=== PATIENT | male | born 1980 | race Caucasian/White ===

== ENCOUNTER 2021-06-10 19:46 | Emergency (ER) | payer OTHER, BC, SELFPAY ==
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
[2021-06-10 19:49] VITALS: BP 169/108; PULSE 97; RESP 16; TEMP 36.6; O2SAT 97; BMI 31.0
[2021-06-10] MEDS: Acetaminophen 325 MG TABLET 650 MG PO (20:21)
[2021-06-10] MEDS: Ondansetron ODT 4 MG TAB.RAPDIS TRANSLINGU (20:21)
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
[2021-06-10 21:51] VITALS: BP 150/91; PULSE 77; RESP 16; O2SAT 97
[2021-06-10] MEDS: Cyclobenzaprine HCl 10 MG TABLET PO (21:56)
== END 2021-06-10 22:35 | disposition home or self-care (01) ==
PROVIDERS: Emergency Provider Internal Medicine; PCP Nurse Practitioner Family
DX: S13.4XXA Sprain of ligaments of cervical spine, initial encounter (principal); V43.52XA Car driver injured in collision with other type car in traffic accident, initial encounter; Y93.89 Activity, other specified; Y92.414 Local residential or business street as the place of occurrence of the external cause; Y99.9 Unspecified external cause status
CPT/HCPCS: 70450; 72072; 72125; 99284

== ENCOUNTER → 2021-06-11 08:05 | Outpatient (BNVA) | payer BC, SELFPAY | PROVIDERS: PCP Nurse Practitioner Family; Visit Provider Physician Assistant ==

== ENCOUNTER → 2021-06-30 07:57 | Outpatient (BNVA) | payer BC, SELFPAY | PROVIDERS: Visit Provider Orthopaedic Surgery ==

== ENCOUNTER 2021-09-27 11:00 | Outpatient (RCR) | payer OTHER, BC, SELFPAY ==
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
--- NOTE | 2021-09-27 12:26 | MHC.PT.DC ---
[facility] [place] [facility] [place] [facility] [place] [facility] [address] Carlos Saini [address] [phone] F: [phone] F: [phone] F: [phone] F: [phone] Physical Therapy Discharge Report Diagnosis: pain in thoracic spine Date of Surgery: Date of Evaluation: 08/02/21 Date of Discharge: 09/27/21 Treatments to Date: 13 Cancellations to Date: 3 No Shows to Date: 0 Discharge Status: Achieved Goals Improved Function Independent with HEP Discharge Summary: Pt has made great progress since beginning skilled PT. He is no longer having pain at rest and has met all of his goals at this time. He does have some mild discomfort with rotation at end range but overall this is much better. He is independent with his HEP and understands retirement compliance to maintain all benefits achieved here. At this time he has maximized all benefits of skilled PT and skilled PT is no longer indicated at this time. Pt in agreement with d/c today. Electronically signed by: Nicole Espinosa, PT, DPT, ATC Please sign and return to therapist. Thank you for your referral.
== END 2021-09-27 12:26 | disposition home or self-care (01) ==
LOC: HO.PTCHIC 11:00
PROVIDERS: PCP Nurse Practitioner Family; Visit Provider Nurse Practitioner Family
DX: M54.6 Pain in thoracic spine (principal); V89.2XXD Person injured in unspecified motor-vehicle accident, traffic, subsequent encounter
CPT/HCPCS: 97110; 97140; 97161

== ENCOUNTER 2022-07-06 12:02 | Outpatient (REF) | payer BC, SELFPAY ==
--- NOTE | 2022-07-06 09:15 | EMG_ITS ---
Please see scanned EMG / Nerve Conduction Report. MTDD
== END 2022-07-06 12:03 | disposition home or self-care (01) ==
LOC: HO.NEURO 12:02
PROVIDERS: PCP Nurse Practitioner Family; Visit Provider Orthopaedic Surgery
DX: R20.0 Anesthesia of skin (principal)
CPT/HCPCS: 95885; 95913

== ENCOUNTER → 2022-07-19 10:22 | Outpatient (BNVA) | payer BC, SELFPAY | PROVIDERS: PCP Nurse Practitioner Family; Visit Provider Orthopaedic Surgery | DX: Z13.89 Encounter for screening for other disorder (principal) ==

== ENCOUNTER 2023-01-17 06:04 | Outpatient (REF) | payer BC, SELFPAY ==
[2023-01-17 11:20] LABS: MANUAL DIFF FLAG NO
[2023-01-17 11:26] LABS: Basophils Percent Auto 0.8 % (0-2); Eosinophils Absolute Auto 0.2 X10*3/uL (0.0-0.4); Eosinophils Percent Auto 4.5 % (0-4); Hematocrit 44.4 % (42.0-52.0); Imm Gran Abs Auto 0.02 X10*3/uL (0.00-0.03); Imm Gran Pct Auto 0.4 % (0.0-0.4); Lymphocytes Absolute Auto 2.2 X10*3/uL (1.2-4.9); Lymphocytes Percent Auto 46.3 % (20-40); Mean Corpuscular HGB Conc 33.8 g/dl (31.0-36.0); Mean Corpuscular Hemoglobin 29.6 pg (27.0-33.0); Mean Corpuscular Volume 87.6 fL (80.0-98.0); Mean Platelet Volume 9.7 fL (9.4-12.4); Monocytes Absolute Auto 0.4 X10*3/uL (0.1-1.2); Monocytes Percent Auto 9.1 % (2-11); Neutrophils Absolute Auto 1.9 x10*3/uL (2.0-8.3); Neutrophils Percent Auto 38.9 % (45-73); Platelet Count 183 X10*3/uL (160-400); Red Blood Count 5.07 X10*6/uL (4.60-5.80); Red Cell Distribution Width 12.4 % (11.0-16.0); White Blood Count 4.8 X10*3/uL (4.8-10.8)
[2023-01-17 12:08] LABS: Appearance Urine Turbid; Color Urine Dark Yellow; Glucose Urine UA Negative (Negative); Leukocyte Esterase Urine Negative (Negative); Nitrite Urine Negative (Negative); PH 5.5 (5.0-9.0); Specific Gravity - Urine >= 1.030 (1.005-1.025); Urine Blood Negative (Negative); Urine Ketones Negative (Negative); Urine Protein Trace mg/dL (Neg-Trace)
[2023-01-17 15:17] LABS: Alanine Aminotransferase 53 U/L (0-40); Albumin Level 4.2 g/dL (3.5-5.0); Alkaline Phosphatase 68 U/L (39-117); Anion Gap 11 (12-20); Aspartate Amino Transferase 26 U/L (5-37); Bilirubin Total 0.5 mg/dL (0.0-1.0); Blood Urea Nitrogen 22 mg/dL (9-16); Calcium 9.6 mg/dL (8.4-10.2); Carbon Dioxide 28 mmol/L (22-29); Chloride 107 mmol/L (96-108); Estimated Glomerular Filt Rate > 60; Glucose Fasting 91 mg/dL (60-99); Potassium 3.8 mmol/L (3.3-5.1); Sodium 142 mmol/L (135-145); Total Protein 6.4 g/dL (6.5-8.0)
[2023-01-17 15:19] LABS: TSH reflex Free T4 4.56 uIU/mL (0.32-4.0)
[2023-01-17 16:56] LABS: Free T4 (Free Thyroxine) 0.95 ng/dL (0.71-1.85)
== END 2023-01-17 06:05 | disposition home or self-care (01) ==
LOC: HO.HMGCLDS 06:04
PROVIDERS: PCP Nurse Practitioner Family; Visit Provider Nurse Practitioner Family
DX: Z00.00 Encounter for general adult medical examination without abnormal findings (principal); R94.6 Abnormal results of thyroid function studies
CPT/HCPCS: 36415; 80053; 81003; 84439; 84443; 85025

== ENCOUNTER 2023-01-19 07:25 | Outpatient (AMB) | payer BC, SELFPAY ==
[2023-01-19 07:39] VITALS: BP 120/82; PULSE 81; O2SAT 96; BMI 31.2
--- NOTE | 2023-01-19 07:39 | A.OFFPC_ITS ---
Vital Signs 01/19/23 07:39 Height 5 ft 9 in Weight 211 lb BMI 31.2 BP 120/82 Blood Pressure Location Rt brachial Position Sitting Pulse 81 Pulse Source Pulse Oximeter Pulse Oximetry (%) 96 Oxygen Delivery Method Room Air Intake Visit Reasons: Annual PE Allergies No Known Allergies [No Known Allergies*] Allergy (Verified 01/19/23 07:41) pollen/seasonal Allergy (Mild, Uncoded 01/19/23 07:41) Unknown Medication List - Last Reconciled 01/19/23 by LETY Villa-SYLVIA cetirizine (Zyrtec) 10 mg PO DAILY PRN levothyroxine 25 mcg PO DAILY 30 days multivitamin 1 tab PO DAILY omeprazole 40 mg PO DAILY zolpidem ER 6.25 mg PO BEDTIME PRN 30 days Tobacco use date assessed: 01/19/23 Dental Screening Dental Screen Date: 01/19/23 Did you have a dental visit in the last 12 months?: Yes Did you have a dental problem in the last 6 months where you did not have access to dental care?: No Was dental information given to patient?: Patient has dentist HPI Annual PE HPI Details Here for a PE. most labs already performed. ongoing fatigue reported. elevated TSH (subclinical), will treat with low dose levo, and will also refer for a sleep study. Will further order more labs as well, and continue to monitor thyroid function. liver enzymes up, Hx of fatty liver. Will repeat abd US. pt does follow up with his oncologist, which i highly suggest he continues to do (Hx of seminoma of left testicle, retroperitoneal mass). 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 Theo Reyes, Leticia Banerjee, Trenton Rodas and colleagues, with an educational vannessa from [employer]. Review of Systems Const Denies chills and Denies fever(s) Eyes Denies blurry vision ENT Denies vertigo, Denies dizziness and Denies sore throat Card Denies chest pain at rest, Denies chest pain with activity, Denies diaphoresis, Denies dyspnea and Denies dyspnea on exertion Resp Denies cough, Denies dyspnea, Denies dyspnea on exertion and Denies wheezing GI Denies abdominal pain, Denies melena, Denies hematochezia, Denies constipation, Denies diarrhea and Denies loose stools Denies hematuria Musc Denies numbness and Denies tingling Skin/Breast Denies lesions Neuro Denies vertigo, Denies dizziness, Denies numbness and Denies tingling Psych Denies anxiety, Denies depression, Denies homicidal ideation, Denies suicidal ideation and Denies other (substance abuse) Aller/Immun Denies wheezing Physical exam (Primary Care) Vital Signs: Last Vital Signs Pulse 81 01/19/23 07:39 BP 120/82 01/19/23 07:39 Pulse Ox 96 01/19/23 07:39 Oxygen Delivery Method Room Air 01/19/23 07:39 BMI result Body Mass Index 31.2 Tobacco/Smoking Status: Tobacco use Status Tobacco use date assessed 01/19/23 01/19/23 07:43 Patient Tobacco Use Status Never used Tobacco 01/19/23 07:43 e-Cigarette/Vaping Use Never Used 01/19/23 07:43 Thrive Assessment: Date of Thrive Assessment Date Thrive assessed 01/18/22 01/19/23 07:43 Const General: cooperative Nutritional Appearance: well nourished Orientation/consciousness: patient oriented x3 HENMT Head: Yes normal to inspection, Yes normocephalic and Yes atraumatic Ears: TM normal on the right and TM normal on the left Eyes General: appearance normal, both eyes and all related structures Alignment and Position: alignment normal and position normal Neck Neck: Yes normal visual inspection and Yes no lymphadenopathy Resp Effort & Inspection: normal respiratory effort Auscultation: clear to auscultation bilaterally Cardio Rate: regular rate Rhythm: regular rhythm Heart sounds: S1 normal heart sound present, S2 normal heart sound present and no murmurs GI Palpation (GI): Soft to palpation and nontender Auscultation: normal bowel sounds Other: absent left testicle Male General Exam: Yes normal external exam Penis: normal penis Scrotum: scrotum normal and no inguinal hernias Testes: no testicular mass Skin Rashes: no rashes Neuro General: patient oriented x3, moves all extremities, no focal motor deficits and deep tendon reflexes 2+ bilaterally Romberg Test: Negative Extrem Right lower extremity: no edema Left lower extremity: no edema Psych Affect: normal affect Attitude: cooperative Thought process: Normal thought process present Assessment and Plan Assessment & Plan (1) Fatigue: Code(s): R53.83 - Other fatigue (2) Elevated TSH: Code(s): R79.89 - Other specified abnormal findings of blood chemistry (3) Elevated liver enzymes: Code(s): R74.8 - Abnormal levels of other serum enzymes (4) Physical exam: Code(s): Z00.00 - Encounter for general adult medical examination without abnormal findings Orders: Orders 2 TSH reflex Free T4 2 Months R53.83 - Other fatigue Ferritin Today R53.83 - Other fatigue Vitamin B12 and Folate Today R53.83 - Other fatigue IRON PROFILE Today R53.83 - Other fatigue US abdomen complete Today R74.8 - Abnormal levels of other serum enzymes Smooth Muscle Antibody Today R53.83 - Other fatigue Mitochondrial Antibody Today R53.83 - Other fatigue Alpha Fetoprotein Today R53.83 - Other fatigue TAMICA Reflex Titer and Pattern Today R53.83 - Other fatigue Testosterone, Free/Total Today C62.92 - Malignant neoplasm of left testis, unspecified whether descended or undescended, R53.83 - Other fatigue Referrals Sleep Medicine Referral R53.83 - Other fatigue Medications: New levothyroxine 25 mcg PO DAILY 30 caps 3RF 30 days Coding Level of Care Code Est Pt Prev Care 40-64y(29864) Diagnoses Fatigue R53.83 Elevated TSH R79.89 Elevated liver enzymes R74.8 Physical exam Z00.00
== END 2023-01-19 11:45 | disposition home or self-care (01) ==
PROVIDERS: Visit Provider Nurse Practitioner Family
DX: R53.83 Other fatigue (principal); R79.89 Other specified abnormal findings of blood chemistry; R74.8 Abnormal levels of other serum enzymes; Z00.00 Encounter for general adult medical examination without abnormal findings
CPT/HCPCS: 99396

== ENCOUNTER 2023-02-02 08:18 | Outpatient (REF) | payer BC, SELFPAY ==
--- NOTE | ~2023-02-02 | US_ITS ---
EXAMINATION: US ABDOMEN COMPLETE CLINICAL INFORMATION: In size. Spleen is borderline prominent in size.. COMPARISON: CT abdomen and pelvis 10/25/2018. Ultrasound abdomen complete 06/22/2018. TECHNIQUE: Real-time imaging of the abdominal viscera. Technically limited study secondary to bowel gas. FINDINGS: PANCREAS: The visualized head and body of the pancreas appears unremarkable. Remainder of the pancreas is obscured by bowel gas. ABDOMINAL AORTA: The distal aorta is obscured. Remainder of the visualized aorta appears unremarkable. INFERIOR VENA CAVA: Visualized portions are normal. LIVER: The liver is normal in size. The liver contour is normal. Diffuse increased parenchymal echogenicity. No focal hepatic lesion. There is no intrahepatic biliary duct dilatation seen. GALLBLADDER: Normal. The gallbladder is physiologically distended without evidence of stones, sludge, polyps, wall thickening or pericholecystic fluid. COMMON BILE DUCT: Normal in caliber measuring 0.38 cm in diameter. RIGHT KIDNEY: Normal. No hydronephrosis. No renal calculi or focal parenchymal lesions. The kidney measures 10.5 cm in maximum dimension. LEFT KIDNEY: Normal. No hydronephrosis. No renal calculi or focal parenchymal lesions. The kidney measures 11.3 cm in maximum dimension. SPLEEN: Upper limits of normal The spleen measures 13.1 cm in maximum dimension. FREE FLUID: None. US/US abdomen complete IMPRESSION: 1. There is generalized increase in hepatic echotexture, consistent with fatty infiltration or hepatocellular disease. Please correlate clinically. No focal hepatic mass or intrahepatic biliary duct dilatation is seen. 2. Spleen is borderline prominent in size.
== END 2023-02-02 08:19 | disposition home or self-care (01) ==
LOC: HO.HMGCX 08:18
PROVIDERS: PCP Nurse Practitioner Family; Visit Provider Nurse Practitioner Family
DX: R74.8 Abnormal levels of other serum enzymes (principal)
CPT/HCPCS: 76700

== ENCOUNTER 2023-02-09 12:29 | Outpatient (AMB) | payer BC, SELFPAY ==
--- NOTE | 2023-02-09 12:39 | MHC.OFFVIS ---
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 Pt is on thyroid medication, pt states he wakes up very tired , has some issues c sleep since Cancer treatments. Allergies No Known Allergies [No Known Allergies*] Allergy (Verified 02/09/23 12:44) pollen/seasonal Allergy (Mild, Uncoded 01/19/23 07:41) Unknown HPI HPI Comments History of Present Illness Details 42 y/o male patient presents for new in-person visit for sleep consultation. Pt reports excessive daytime sleepiness. He reports that he was very tired all day, but has improved a little after he start levothyroxine. However, he still feel very tired around 3 pm and takes a nap for an hour sometimes. He started taking levothyroxine 25 mg a week ago. He has family hx of sleep apnea. Pt states that he does not have difficulty falling asleep, but tosses and turns, moves a lot, and having not rested sleep. He wakes up around 3 am and can't go back to sleep. He also recently started mouth guard for jaw clenching. Sleep questionnaire: Have you ever been diagnosed with a sleep disorder? No. Have you ever had a sleep study in the past? No. Have you ever been treated for a sleep disorder? No. Do you take medications for a sleep disorder? zolpidem ,had cancer 5 years ago, could not sleep, only use once every couple of months. Do you snore? Yes. Do you wake up gasping at night? No. Do you have episodes of apneas? No. If yes, are they witnessed? No. Do you have episodes of nocturnal chest pain or dyspnea? No. Do you have difficulty initiating sleep? Not really. Do you have difficulty maintaining sleep? Yes. Do you wake up tired? Yes. Do you have headaches upon awakening? No. Do you wake up with dry mouth or throat? No. Do you have GERD? Yes. Do you have nocturia? Once. Do you have nocturnal leg cramps? No. Do you have symptoms of restless legs? Yes, sometimes. Do you act out your dreams? No but having vivid dream. Sleep hygiene questionnaire: What is your usual sleep routine? Usual bedtime is at ; Usual wake up time is at 3 am . Do you take naps? Yes. Is your sleep environment cool, dark, and quiet? Yes. Do you exercise? Yes. Do you take caffeine or other stimulants? Coffee in the morning and afternoon with candy bar. Do you use electronics in bed? Yes. 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 Hypersomnolence questionnaire: Do you have daytime tiredness or fatigue? Yes. Do you easily fall asleep when inactive? Yes. Have you ever had episodes of sudden weakness? No. Have you ever had episodes of sudden weakness associated with strong emotions? No. 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 occupation: [employer] / rt hand Current occupational exposures/hazards: Yes Cognitive needs: No Hearing needs: No Vision needs: No Review of Systems Const All systems reviewed & are unremarkable except as noted in HPI and below ENT Reports Normal hearing present Neuro Reports Normal hearing present Physical Exam Vital Signs: Last Vital Signs Pulse 87 02/09/23 12:40 BP 128/86 02/09/23 12:40 Pulse Ox 99 02/09/23 12:40 Oxygen Delivery Method Room Air 02/09/23 12:40 BMI result Body Mass Index 32.1 Const General: cooperative and tired appearing Orientation/consciousness: patient oriented x3 Neck Neck: Yes full ROM and Yes supple Resp Effort & Inspection: normal respiratory effort and able to speak in complete sentences Neuro General: patient oriented x3 and gait normal Cranial nerves: Yes Bilaterally intact EOM present, Yes Normal facial strength present, Yes Midline tongue present, Yes Symmetric palate elevation present, Yes Normal hearing present, Yes Ability to bilaterally rotate head present and Yes Ability to bilaterally elevate shoulders present Cognition (Neuro): normal cognition Gait exam (Neuro): Normal gait present Motor exam (neuro): 5/5 motor strength present throughout, Pronator motor function not present and no tremor noted Psych Appearance: grossly normal Mental Status: mental status grossly normal Speech and movement: Normal speech and movement present Affect: normal affect Attitude: cooperative Assessment & Plan Assessment & Plan (1) Fatigue: Code(s): R53.83 - Other fatigue (2) Excessive daytime sleepiness: Code(s): G47.19 - Other hypersomnia (3) Snoring: Code(s): R06.83 - Snoring Plan Pt is advised to undergo home sleep study to assess for sleep apnea. Will f/u with pt after study to discuss results and appropriate treatment options. Sleep hygiene education provided. Advised patient to limit screen time before bedtime, and limit caffeine intake in the afternoon. Pt to call with any worsening concerns or questions. Coding Level of Care Code New Pt Level 4 (24112) Diagnoses Fatigue R53.83 Excessive daytime sleepiness G47.19 Snoring R06.83
[2023-02-09 12:40] VITALS: BP 128/86; PULSE 87; O2SAT 99; BMI 32.1
== END 2023-02-09 13:36 | disposition home or self-care (01) ==
PROVIDERS: PCP Nurse Practitioner Family; Visit Provider Nurse Practitioner Family
DX: R53.83 Other fatigue (principal); G47.19 Other hypersomnia; R06.83 Snoring
CPT/HCPCS: 99204

== ENCOUNTER → 2023-02-09 12:29 | Outpatient (BNVA) | payer BC, SELFPAY | PROVIDERS: PCP Nurse Practitioner Family; Visit Provider Nurse Practitioner Family ==

== ENCOUNTER 2023-04-03 07:13 | Outpatient (REF) | payer BC, SELFPAY ==
[2023-04-03 12:23] LABS: Folate 11.8 ng/mL (> or = 4.0); Vitamin B12 1063 pg/mL (200-900)
[2023-04-03 12:37] LABS: Ferritin 320 ng/mL (20-250); TSH reflex Free T4 1.75 uIU/mL (0.32-4.0)
[2023-04-03 12:49] LABS: Iron 107 mcg/dL (45-160); Percent Iron Saturation 43 % (15-50); Total Iron Binding Capacity 249 mcg/dL (228-428); Unsaturated Iron Binding 142 ug/dL
[2023-04-04 21:23] LABS: Thyroid Peroxidase Antibodies 3 IU/mL (<9)
[2023-04-07 12:34] LABS: Alpha Fetoprotein 4.4 ng/mL (<6.1)
[2023-04-08 13:04] LABS: Smooth Muscle Antibody <20 U (<20)
[2023-04-10 01:08] LABS: Testosterone, Free 62.4 pg/mL (35.0-155.0); Testosterone, Total 280 ng/dL (250-1100)
[2023-04-10 11:54] LABS: Mitochondrial Antibodies NEGATIVE (NEGATIVE)
[2023-04-10 13:18] LABS: Anti Nuclear Antibody Screen POSITIVE (NEGATIVE); Anti Nuclear Antibody Titer 1:40 titer
== END 2023-04-03 07:14 | disposition home or self-care (01) ==
LOC: HO.HMGCLDS 07:13
PROVIDERS: PCP Nurse Practitioner Family; Visit Provider Nurse Practitioner Family
DX: R53.83 Other fatigue (principal); R94.6 Abnormal results of thyroid function studies; C62.92 Malignant neoplasm of left testis, unspecified whether descended or undescended
CPT/HCPCS: 36415; 82105; 82607; 82728; 82746; 83540; 84402; 84403; 84443; 86015; 86038; 86039; 86376; 86381

== ENCOUNTER 2023-04-20 09:49 | Outpatient (AMB) | payer BC, SELFPAY ==
--- NOTE | 2023-04-20 09:57 | MHC.PC.OV ---
Vital Signs 04/20/23 10:00 Weight 220 lb BP 120/94 H Blood Pressure Location Rt brachial Position Sitting Pulse 80 Pulse Source Pulse Oximeter Pulse Oximetry (%) 97 Oxygen Delivery Method Room Air Intake Visit Reasons: 3 Month follow up Allergies No Known Allergies [No Known Allergies*] Allergy (Verified 04/20/23 10:00) pollen/seasonal Allergy (Mild, Uncoded 04/20/23 10:00) Unknown Medication List - Last Reconciled 04/20/23 by KAMRAN Villa cetirizine (Zyrtec) 10 mg PO DAILY PRN cholecalciferol (vitamin D3) 25 mcg PO DAILY esomeprazole magnesium 20 mg PO DAILY levothyroxine 25 mcg PO DAILY 30 days multivitamin 1 tab PO DAILY omeprazole 40 mg PO DAILY zolpidem ER 6.25 mg PO BEDTIME PRN 30 days Tobacco use date assessed: 01/19/23 HPI 3 Month follow up HPI Details Pt reports ongoing fatigue. His TSH was elevated previously, though it is normal now. He is currently taking levothyroxine 25mcg, will continue this dose. Sleep study was ordered but pt would not like to do it at home, will contact sleep medicine about this. Denies fever, chills, and dizziness. + TAMICA: referred to rhuematology for further eval and treatment. Pt is currently following up with oncology as well (once a year appts). HTN: denies any CP, SOB, dizziness, BECK. Will have him take his BP at home, drop off values in a few weeks. 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 Theo Reyes, Leticia Banerjee, Trenton Rodas and colleagues, with an educational vannessa from [employer]. Review of Systems Const Reports as per HPI Physical exam (Primary Care) Vital Signs: Last Vital Signs Pulse 80 04/20/23 10:00 BP 120/94 H 04/20/23 10:00 Pulse Ox 97 04/20/23 10:00 Oxygen Delivery Method Room Air 04/20/23 10:00 Tobacco/Smoking Status: Tobacco use Status Tobacco use date assessed 01/19/23 04/20/23 09:58 Patient Tobacco Use Status Never used Tobacco 04/20/23 09:58 e-Cigarette/Vaping Use Never Used 04/20/23 09:58 Thrive Assessment: Date of Thrive Assessment Date Thrive assessed 01/18/22 04/20/23 09:58 Const General: cooperative Nutritional Appearance: obese Orientation/consciousness: patient oriented x3 Resp Effort & Inspection: normal respiratory effort Auscultation: clear to auscultation bilaterally Cardio Rate: regular rate Rhythm: regular rhythm Heart sounds: S1 normal heart sound present and S2 normal heart sound present Neuro General: patient oriented x3 Psych Appearance: grossly normal Mental Status: mental status grossly normal Speech and movement: Normal speech and movement present Affect: normal affect Attitude: cooperative Thought process: Normal thought process present Thought content: Normal thought content present Insight: Good insight present (Psych) Judgement: Good judgement present (Psych) Assessment and Plan Assessment & Plan (1) Fatigue: Code(s): R53.83 - Other fatigue (2) Elevated TSH: Code(s): R79.89 - Other specified abnormal findings of blood chemistry (3) TAMICA positive: Code(s): R76.8 - Other specified abnormal immunological findings in serum (4) HTN (hypertension): Code(s): I10 - Essential (primary) hypertension Plan: pt will take BP at home, drop off values Plan The patient agreed to the use of a dental assistant medical assistant for this encounter. Scribed for KAMRAN Green by Aria Dotson dental assistant medical assistant, on 04/20/2023 at 10:30 EST. Orders: Orders Complete Blood Count Auto Diff Today R53.83 - Other fatigue, R76.8 - Other specified abnormal immunological findings in serum, R79.89 - Other specified abnormal findings of blood chemistry TSH reflex Free T4 Today R53.83 - Other fatigue, R76.8 - Other specified abnormal immunological findings in serum, R79.89 - Other specified abnormal findings of blood chemistry Comprehensive Met. Panel Today R53.83 - Other fatigue, R76.8 - Other specified abnormal immunological findings in serum, R79.89 - Other specified abnormal findings of blood chemistry Coding Level of Care Code Est Pt Level 3 (77081) Diagnoses Fatigue R53.83 Elevated TSH R79.89 TAMICA positive R76.8 HTN (hypertension) I10
[2023-04-20 10:00] VITALS: BP 120/94; PULSE 80; O2SAT 97
== END 2023-04-20 10:46 | disposition home or self-care (01) ==
PROVIDERS: PCP Nurse Practitioner Family; Visit Provider Nurse Practitioner Family
DX: R53.83 Other fatigue (principal); R79.89 Other specified abnormal findings of blood chemistry; R76.8 Other specified abnormal immunological findings in serum; I10 Essential (primary) hypertension
CPT/HCPCS: 99213

== ENCOUNTER → 2023-05-12 19:30 | Outpatient (REF) | payer BC, SELFPAY | LOC: HO.SL 19:30 | PROVIDERS: PCP Nurse Practitioner Family; Visit Provider Nurse Practitioner Family | DX: G47.33 Obstructive sleep apnea (adult) (pediatric) (principal); R06.83 Snoring; G47.19 Other hypersomnia; E66.9 Obesity, unspecified | CPT/HCPCS: 95810 ==

== ENCOUNTER → 2023-05-12 23:02 | Outpatient (BNV) | payer BC, SELFPAY | PROVIDERS: PCP Nurse Practitioner Family; Visit Provider Psychiatry & Neurology Neurology | DX: R06.83 Snoring (principal) | CPT/HCPCS: 95810 ==

== ENCOUNTER 2023-06-08 08:24 | Outpatient (AMB) | payer BC, SELFPAY ==
[2023-06-08 08:36] VITALS: BP 132/70; PULSE 100; TEMP 36.3; O2SAT 97; BMI 33.8
--- NOTE | 2023-06-08 08:36 | MHC.OFFVIS ---
Intake Vital Signs 06/08/23 08:36 Height 5 ft 9 in Weight 229 lb 0.964 oz BMI 33.8 BP 132/70 Blood Pressure Location Rt brachial Position Sitting Pulse 100 Pulse Source Pulse Oximeter Temp 97.3 F Temp Source Skin Pulse Oximetry (%) 97 Oxygen Delivery Method Room Air Intake Visit Reasons: abnormal immunological findings in serum Intake Note: New patient presents today for + TAMICA consult. Human Resource Advisor Required: No Allergies No Known Allergies [No Known Allergies*] Allergy (Verified 06/08/23 08:38) pollen/seasonal Allergy (Mild, Uncoded 06/08/23 08:38) Unknown HPI HPI Comments History of Present Illness Details This is a 43-year-old male who presents for evaluation of positive TAMICA. This was checked in the context of generalized fatigue and sleepiness. Recently he was found to have elevated TSH and was started on levothyroxine. He just completed a sleep study which showed sleep apnea and CPAP was prescribed. Patient denies any fevers, denies weight loss. He denies any significant joint pain, morning stiffness or swelling. No rashes except for dry skin on his digital tips. States that he was diagnosed with left testicular seminoma about 5 years ago s/p left orchiectomy and chemotherapy followed by active surveillance. Patient is unaware of any family history of an autoimmune rheumatic disease. Denies any history of DVT/PE PFSH Medical History Retroperitoneal mass Seminoma of left testis H/O splenomegaly Fatty liver Surgical History H/O unilateral orchiectomy Family History Mother No problems noted. 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 Current occupational exposures/hazards: Yes Cognitive needs: No Hearing needs: No Vision needs: No Review of Systems Const Reports fatigue Card Denies dyspnea Resp Denies dyspnea Musc Denies arthralgias, Denies joint swelling and Denies stiffness Skin/Breast Reports dry skin and Denies rash Endo Reports fatigue Physical Exam Vital Signs: Last Vital Signs Temp 97.3 F 06/08/23 08:36 Pulse 100 06/08/23 08:36 BP 132/70 06/08/23 08:36 Pulse Ox 97 06/08/23 08:36 Oxygen Delivery Method Room Air 06/08/23 08:36 BMI result Body Mass Index 33.8 Const General: cooperative, healthy appearing and comfortable Nutritional Appearance: obese Orientation/consciousness: patient oriented x3 Limitations: no limitations HEENT Head: Yes normocephalic and Yes atraumatic Mouth: moist mucous membranes Resp Effort & Inspection: normal respiratory effort and able to speak in complete sentences Auscultation: clear to auscultation bilaterally Cardio Rate: regular rate Rhythm: regular rhythm Skin General skin exam: no rashes or lesions noted Neuro General: patient oriented x3 Extrem Other: No active synovitis Normal nailfold capillaroscopy Assessment & Plan Assessment & Plan (1) TAMICA positive: Code(s): R76.8 - Other specified abnormal immunological findings in serum Plan: This is a 43-year-old male who presents for evaluation of positive TAMICA 1-40 dfs pattern. I do not see any signs of any signs suggestive of an autoimmune rheumatic disease. Discussed symptoms and signs that are suggestive of an autoimmune rheumatic disease. Patient to follow-up as needed Plan I spent 20 minutes reviewing patient's chart, evaluating patient, counseling patient and documenting in the chart Coding Level of Care Code New Pt Level 3 (91513) Diagnoses TAMICA positive R76.8
== END 2023-06-08 09:12 | disposition home or self-care (01) ==
PROVIDERS: PCP Nurse Practitioner Family; Visit Provider Student in an Organized Health Care Education/Training Program
DX: R76.8 Other specified abnormal immunological findings in serum (principal)
CPT/HCPCS: 99203

== ENCOUNTER → 2023-06-08 08:24 | Outpatient (BNVA) | payer BC, SELFPAY | PROVIDERS: PCP Nurse Practitioner Family; Visit Provider Student in an Organized Health Care Education/Training Program ==

== ENCOUNTER 2023-07-27 08:17 | Outpatient (AMB) | payer BC, SELFPAY ==
--- NOTE | 2023-07-27 08:21 | A.OFFPC_ITS ---
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 He reports that this started 2 days ago. Pt reports that this is worse with movement and deep breathing. Will order XR (chest and ribs). Pt has a hx of retroperitoneal carcinoma. Will order US. Denies fever, chills, and shortness of breath. Pt was found to have sleep apnea. He started using a CPAP and reports improvement. HTN: Blood pressure is stable, managed with hydrochlorothiazide 12.5mg. Denies chest pain, shortness of breath, headache, dizziness, and blurred vision. [facility] Medical History Retroperitoneal mass Seminoma of left testis H/O splenomegaly Fatty liver Surgical History H/O unilateral orchiectomy Family History Mother No problems noted. 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 1. Little interest or pleasure in doing things: not at all 2. Feeling down, depressed, or hopeless: not at all 3. Trouble falling or staying asleep, or sleeping too much: not at all 4. Feeling tired or having little energy: not at all 5. Poor appetite or overeating: not at all 6. Feeling bad about yourself - or that you are a failure or have let yourself or your family down: not at all 7. Trouble concentrating on things, such as reading the newspaper or watching television: not at all 8. Moving or speaking so slowly that other people could have noticed. Or the opposite - being so fidgety or restless that you have been moving around a lot more than usual: not at all 9. Thoughts that you would be better off or of hurting yourself in some way: not at all Total score: 0 Depression Screening Interpretation: Negative Depression Screening Done: Yes 53072 - PHQ-9 Billing: Yes Source: Developed by Drs. Theo Reyes, Leticia Banerjee, Trenton Rodas and colleagues, with an educational vannessa from [employer]. Thrive Questionnaire Date Thrive assessed: 07/27/23 I am a: Patient What is your living situation today?: I have a steady place to live Within the past 12 months, did the food you bought not last and you didn't have the money to get more?: Never true Within the past 12 months, did you worry whether your food would run out before you got money to buy more?: Never true Do you have trouble paying for medicines?: No Do you have trouble getting transportation to medical appointments?: No Do you have trouble paying your heating and electricity bill?: No Do you have trouble taking care of your child, family member or friend?: No Do you have trouble with day-to-day activities such as bathing, preparing meals, shopping, managing finances, etc.?: No Are you currently unemployed and looking for a job?: No Are you interested in more education?: No Please select the resources that you would like help with: None Currently or been in a relationship where the following occur: no concerns reported THRIVE Score: 0 AUDIT C Alcohol Use Questionnaire (AUDIT-C) 1. How often do you have a drink containing alcohol?: Monthly or less 2. How many drinks containing alcohol do you have on a typical day when you are drinking?: 1 or 2 3. How often do you have six or more drinks on one occasion?: Never Total Score: 1 Score Reviewed/Action Taken: Yes SHIRA-7 AMB Questionnaire SHIRA-7 Date SHIRA - 7 assessed: 07/27/23 Feeling nervous, anxious, or on edge: 0 = Not at all Not being able to stop or control worryin = Not at all Worrying too much about different things: 0 = Not at all Trouble relaxin = Not at all Being so restless that it is hard to sit still: 0 = Not at all Becoming easily annoyed or irritable: 0 = Not at all Feeling afraid as if something awful might happen: 0 = Not at all Total SHIRA-7 score (0-4 normal; 5-9 mild; 10-14 moderate; 15-21 severe): 0 Source: Developed by Drs. Theo Reyes, Leticia Banerjee, Trenton Rodas and colleagues, with an educational vannessa from [employer]. SHIRA-7 Assessment Billing SHIRA-7 Assessment Tool: SHIRA-7 Assessment 53372 Review of Systems Const Reports as per HPI Physical exam (Primary Care) Vital Signs: Last Vital Signs Pulse 81 07/27/23 08:23 BP 134/76 07/27/23 08:23 Pulse Ox 98 07/27/23 08:23 Oxygen Delivery Method Room Air 07/27/23 08:23 BMI result Body Mass Index 32.9 Tobacco/Smoking Status: Tobacco use Status Tobacco use date assessed 07/27/23 07/27/23 08:27 Patient Tobacco Use Status Never used Tobacco 07/27/23 08:23 e-Cigarette/Vaping Use Never Used 07/27/23 08:23 PHQ-9: PHQ-9 Score PHQ-9: Total score 0 07/27/23 08:30 Depression Screening Interpretation: Negative Thrive Assessment: Date of Thrive Assessment Date Thrive assessed 07/27/23 07/27/23 08:27 Currently or been in a relationship where the following occur: no concerns reported Const General: cooperative Nutritional Appearance: obese Orientation/consciousness: patient oriented x3 Chest Other: tenderness noted with palpation of right posterior lower ribs, no skin lesions Resp Effort & Inspection: normal respiratory effort Auscultation: clear to auscultation bilaterally Cardio Rate: regular rate Rhythm: regular rhythm Heart sounds: S1 normal heart sound present and S2 normal heart sound present Skin Other: palpation of lateral side (more posterior) and to upper right flank with tenderness. No active skin lesions/dermatitis Neuro General: patient oriented x3 Psych Appearance: grossly normal Mental Status: mental status grossly normal Speech and movement: Normal speech and movement present Affect: normal affect Attitude: cooperative Thought process: Normal thought process present Thought content: Normal thought content present Insight: Good insight present (Psych) Judgement: Good judgement present (Psych) Assessment and Plan Assessment & Plan (1) Rib pain: Code(s): R07.81 - Pleurodynia Plan: XR ordered (2) Inspiratory pain: Code(s): R07.1 - Chest pain on breathing Plan: XR ordered (3) Radiating pain: Code(s): R52 - Pain, unspecified Plan: XR and US ordered Plan The patient agreed to the use of a medical administrator for this encounter. Scribed for KAMRAN Green by Aria Dotson medical administrator, on 07/27/2023 at 08:30 EST. Orders: Orders XR chest 2V Today R07.1 - Chest pain on breathing, R07.81 - Pleurodynia Comprehensive [place]. Panel Fast Today I10 - Essential (primary) hypertension Lipid Panel Today I10 - Essential (primary) hypertension TSH reflex Free T4 Today I10 - Essential (primary) hypertension UA CC w/rflx Micro + Cult Today I10 - Essential (primary) hypertension XR ribs RT 2V Today R07.81 - Pleurodynia US retroperitoneal limited Today R52 - Pain, unspecified Complete Blood Count Auto Diff Today I10 - Essential (primary) hypertension Coding Level of Care Code Est Pt Level 3 (27484) Diagnoses Rib pain R07.81 Inspiratory pain R07.1 Radiating pain R52 Additional Codes SHIRA-7 Assessment Billing - SHIRA-7 Assessment Tool: SHIRA-7 Assessment [id number] ([id number])
[2023-07-27 08:23] VITALS: BP 134/76; PULSE 81; O2SAT 98; BMI 32.9
== END 2023-07-27 08:56 | disposition home or self-care (01) ==
PROVIDERS: PCP Nurse Practitioner Family; Visit Provider Nurse Practitioner Family
DX: R07.81 Pleurodynia (principal); R07.1 Chest pain on breathing; Z85.89 Personal history of malignant neoplasm of other organs and systems; I10 Essential (primary) hypertension
CPT/HCPCS: 99213

== ENCOUNTER 2023-07-27 09:00 | Outpatient (REF) | payer BC, SELFPAY ==
--- NOTE | ~2023-07-27 | XR_ITS ---
EXAMINATION: XR RIBS, RIGHT XR CHEST CLINICAL INFORMATION: Chest pain with inspiration. COMPARISON: 10/16/2018 TECHNIQUE: 4 views of the right ribs were obtained. PA and lateral views of the chest. FINDINGS: The lungs are well expanded. No focal consolidation. No pleural effusion. Cardiac silhouette is unchanged. No acute displaced fracture. There is evidence of an old healed right anterior 2nd rib fracture. XR/XR ribs RT 2V IMPRESSION: No acute abnormality.
--- NOTE | ~2023-07-27 | XR_ITS ---
EXAMINATION: XR RIBS, RIGHT XR CHEST CLINICAL INFORMATION: Chest pain with inspiration. COMPARISON: 10/16/2018 TECHNIQUE: 4 views of the right ribs were obtained. PA and lateral views of the chest. FINDINGS: The lungs are well expanded. No focal consolidation. No pleural effusion. Cardiac silhouette is unchanged. No acute displaced fracture. There is evidence of an old healed right anterior 2nd rib fracture. XR/XR chest 2V IMPRESSION: No acute abnormality.
== END 2023-07-27 09:01 | disposition home or self-care (01) ==
LOC: HO.HMGCX 09:00
PROVIDERS: PCP Nurse Practitioner Family; Visit Provider Nurse Practitioner Family
DX: R07.1 Chest pain on breathing (principal); R07.81 Pleurodynia
CPT/HCPCS: 71046; 71100

== ENCOUNTER 2023-07-31 13:47 | Outpatient (REF) | payer BC, SELFPAY ==
--- NOTE | ~2023-07-31 | US_ITS ---
EXAMINATION: US RETROPERITONEAL LIMITED (RENAL ONLY) CLINICAL INFORMATION: Pain, unspecified. Right upper flank pain. COMPARISON: Ultrasound abdomen complete 02/02/2023. CT abdomen and pelvis 10/25/2018. Ultrasound abdomen complete 06/22/2018. TECHNIQUE: Real-time imaging of the kidneys. FINDINGS: RIGHT KIDNEY: 10.5 x 4.5 x 5.2 cm (SAG x AP x TRV). The kidney is normal in size, contour, and echogenicity. Renal cortical thickness is normal. No calculi or focal parenchymal lesions. No hydronephrosis. LEFT KIDNEY: 11.2 x 5.7 x 6.1 cm (SAG x AP x TRV). The kidney is normal in size, contour, and echogenicity. Renal cortical thickness is normal. No calculi or focal parenchymal lesions. No hydronephrosis. US/US renal BI IMPRESSION: Unremarkable renal ultrasound.
== END 2023-07-31 13:48 | disposition home or self-care (01) ==
LOC: HO.HMGCX 13:47
PROVIDERS: PCP Nurse Practitioner Family; Visit Provider Nurse Practitioner Family
DX: R10.10 Upper abdominal pain, unspecified (principal)
CPT/HCPCS: 76775

== ENCOUNTER 2023-08-04 08:02 | Outpatient (AMB) | payer BC, SELFPAY ==
--- NOTE | 2023-08-04 08:06 | MHC.OFFVIS ---
Intake Vital Signs 08/04/23 08:07 Height 5 ft 9 in Weight 225 lb BMI 33.2 BP 126/70 Blood Pressure Location Rt brachial Position Sitting Respiration 16 Pulse 76 Pulse Source Pulse Oximeter Pulse Oximetry (%) 97 Oxygen Delivery Method Room Air Intake Visit Reasons: f/u-Fatigue - CONF w/address Intake Note: Pt presents for 6 month follow up for excessive daytime sleepiness. 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 The PSG sleep study result was significant for mild degree of sleep apnea with increased severity in REM sleep. The AHI was 11/hr, REM AHI was 15/hr and oxygen dax was 86%. Pt started APAP at [id number]. The CPAP compliance and therapy response (05/06/23-) reviewed. The usage days 49 days and the average usage hours 7 hrs. The max pressures was 7.6 and the residual AHI was 2.8/hr. Pt reports he sleeps better, not waking up in the middle of night to go to bathroom. He feels refreshed, and daytime sleepiness has resolved. He does not take a nap during daytime anymore, and does not need to drink coffee to stay awake. [facility] Medical History Retroperitoneal mass Seminoma of left testis H/O splenomegaly Fatty liver Surgical History H/O unilateral orchiectomy Family History Mother No problems noted. 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 Current occupational exposures/hazards: Yes Cognitive needs: No Hearing needs: No Vision needs: No Review of Systems Const All systems reviewed & are unremarkable except as noted in HPI and below ENT Reports Normal hearing present Neuro Reports Normal hearing present Physical Exam Vital Signs: Last Vital Signs Pulse 76 08/04/23 08:07 Resp 16 08/04/23 08:07 BP 126/70 08/04/23 08:07 Pulse Ox 97 08/04/23 08:07 Oxygen Delivery Method Room Air 08/04/23 08:07 BMI result Body Mass Index 33.2 Const General: cooperative Orientation/consciousness: patient oriented x3 Neck Neck: Yes full ROM and Yes supple Resp Effort & Inspection: normal respiratory effort and able to speak in complete sentences Neuro General: patient oriented x3 and gait normal Cranial nerves: Yes Bilaterally intact EOM present, Yes Normal facial strength present, Yes Midline tongue present, Yes Symmetric palate elevation present, Yes Normal hearing present, Yes Ability to bilaterally rotate head present and Yes Ability to bilaterally elevate shoulders present Cognition (Neuro): normal cognition Gait exam (Neuro): Normal gait present Motor exam (neuro): 5/5 motor strength present throughout, Pronator motor function not present and no tremor noted Psych Appearance: grossly normal Mental Status: mental status grossly normal Speech and movement: Normal speech and movement present Affect: normal affect Attitude: cooperative Assessment & Plan Assessment & Plan (1) JAVY (obstructive sleep apnea): Comment: Mild degree of sleep apnea. The AHI was 11/hr, REM AHI was 15/hr and oxygen dax was 86%. Code(s): G47.33 - Obstructive sleep apnea (adult) (pediatric) Plan Advised patient to continue to use APAP at [id number] as patient experiences good clinical effects, sleep quality and daytime symptoms has improved. Stressed compliance, use CPAP nightly and more than 4 hrs. Wt reduction advised. Coding Level of Care Code Est Pt Level 3 (99948) Diagnoses JAVY (obstructive sleep apnea) G47.33
[2023-08-04 08:07] VITALS: BP 126/70; PULSE 76; RESP 16; O2SAT 97; BMI 33.2
== END 2023-08-04 08:21 | disposition home or self-care (01) ==
PROVIDERS: PCP Nurse Practitioner Family; Visit Provider Nurse Practitioner Family
DX: G47.33 Obstructive sleep apnea (adult) (pediatric) (principal)
CPT/HCPCS: 99213

== ENCOUNTER → 2023-08-04 08:02 | Outpatient (BNVA) | payer BC, SELFPAY | PROVIDERS: PCP Nurse Practitioner Family; Visit Provider Nurse Practitioner Family ==

== ENCOUNTER 2023-08-10 07:22 | Outpatient (REF) | payer BC, SELFPAY ==
[2023-08-10 10:08] LABS: MANUAL DIFF FLAG NO
[2023-08-10 10:29] LABS: Basophils Absolute Auto 0.1 X10*3/uL (0.0-0.2); Basophils Percent Auto 1.1 % (0-2); Eosinophils Absolute Auto 0.3 X10*3/uL (0.0-0.4); Eosinophils Percent Auto 4.4 % (0-4); Hematocrit 44.1 % (42.0-52.0); Hemoglobin 15.2 g/dl (14.0-18.0); Imm Gran Abs Auto 0.02 X10*3/uL (0.00-0.03); Imm Gran Pct Auto 0.4 % (0.0-0.4); Lymphocytes Absolute Auto 1.7 X10*3/uL (1.2-4.9); Lymphocytes Percent Auto 30.1 % (20-40); Mean Corpuscular HGB Conc 34.5 g/dl (31.0-36.0); Mean Corpuscular Hemoglobin 30.1 pg (27.0-33.0); Mean Corpuscular Volume 87.3 fL (80.0-98.0); Mean Platelet Volume 9.8 fL (9.4-12.4); Monocytes Absolute Auto 0.5 X10*3/uL (0.1-1.2); Monocytes Percent Auto 9.5 % (2-11); Neutrophils Absolute Auto 3.1 x10*3/uL (2.0-8.3); Neutrophils Percent Auto 54.5 % (45-73); Platelet Count 173 X10*3/uL (160-400); Red Blood Count 5.05 X10*6/uL (4.60-5.80); Red Cell Distribution Width 12.1 % (11.0-16.0); White Blood Count 5.7 X10*3/uL (4.8-10.8)
[2023-08-10 11:10] LABS: Alanine Aminotransferase 45 U/L (0-40); Albumin Level 4.1 g/dL (3.5-5.0); Alkaline Phosphatase 70 U/L (39-117); Anion Gap 11 (12-20); Aspartate Amino Transferase 24 U/L (5-37); Bilirubin Total 0.5 mg/dL (0.0-1.0); Blood Urea Nitrogen 23 mg/dL (9-16); Calcium 9.4 mg/dL (8.4-10.2); Carbon Dioxide 29 mmol/L (22-29); Chloride 105 mmol/L (96-108); Cholesterol 179 mg/dL (<200); Estimated Glomerular Filt Rate > 60; Glucose Fasting 104 mg/dL (60-99); Glucose Random 105 mg/dL (60-115); HDL Cholesterol 43 mg/dL (>40); LDL Cholesterol Calculated 119 mg/dL (<100); Potassium 4.5 mmol/L (3.3-5.1); Sodium 140 mmol/L (135-145); Total Protein 6.5 g/dL (6.5-8.0); Triglycerides 86 mg/dL (<150)
[2023-08-10 11:29] LABS: TSH reflex Free T4 1.75 uIU/mL (0.32-4.0)
== END 2023-08-10 07:23 | disposition home or self-care (01) ==
LOC: HO.HMGCLDS 07:22
PROVIDERS: PCP Nurse Practitioner Family; Visit Provider Nurse Practitioner Family
DX: R53.83 Other fatigue (principal); R79.89 Other specified abnormal findings of blood chemistry; R76.8 Other specified abnormal immunological findings in serum; I10 Essential (primary) hypertension
CPT/HCPCS: 36415; 80053; 80061; 84443; 85025

== ENCOUNTER 2023-12-05 06:29 | Outpatient (REF) | payer BC, SELFPAY ==
[2023-12-05 10:11] LABS: MANUAL DIFF FLAG NO
[2023-12-05 10:20] LABS: Basophils Absolute Auto 0.1 X10*3/uL (0.0-0.2); Basophils Percent Auto 1.2 % (0-2); Eosinophils Absolute Auto 0.3 X10*3/uL (0.0-0.4); Eosinophils Percent Auto 5.5 % (0-4); Hematocrit 43.5 % (42.0-52.0); Hemoglobin 14.7 g/dl (14.0-18.0); Imm Gran Abs Auto 0.01 X10*3/uL (0.00-0.03); Imm Gran Pct Auto 0.2 % (0.0-0.4); Lymphocytes Absolute Auto 1.8 X10*3/uL (1.2-4.9); Mean Corpuscular HGB Conc 33.8 g/dl (31.0-36.0); Mean Corpuscular Hemoglobin 29.6 pg (27.0-33.0); Mean Corpuscular Volume 87.5 fL (80.0-98.0); Mean Platelet Volume 9.9 fL (9.4-12.4); Monocytes Absolute Auto 0.5 X10*3/uL (0.1-1.2); Monocytes Percent Auto 8.9 % (2-11); Neutrophils Absolute Auto 2.5 x10*3/uL (2.0-8.3); Neutrophils Percent Auto 48.2 % (45-73); Platelet Count 201 X10*3/uL (160-400); Red Blood Count 4.97 X10*6/uL (4.60-5.80); Red Cell Distribution Width 12.6 % (11.0-16.0); White Blood Count 5.1 X10*3/uL (4.8-10.8)
[2023-12-05 10:48] LABS: TSH reflex Free T4 1.85 uIU/mL (0.32-4.0)
== END 2023-12-05 06:30 | disposition home or self-care (01) ==
LOC: HO.HMGCLDS 06:29
PROVIDERS: PCP Nurse Practitioner Family; Visit Provider Nurse Practitioner Family
DX: I10 Essential (primary) hypertension (principal)
CPT/HCPCS: 36415; 84443; 85025

== ENCOUNTER 2023-12-12 07:50 | Outpatient (AMB) | payer BC, SELFPAY ==
--- NOTE | 2023-12-12 08:04 | MHC.PC.OV ---
Vital Signs 12/12/23 08:09 Height 5 ft 9 in Weight 213 lb BMI 31.5 BP 130/90 H Blood Pressure Location Lt brachial Position Sitting Pulse 82 Pulse Source Pulse Oximeter Pulse Oximetry (%) 97 Oxygen Delivery Method Room Air Intake Visit Reasons: 4 month follow up Intake Note: Patient here for update on health. Allergies No Known Allergies [No Known Allergies*] Allergy (Verified 12/12/23 08:09) pollen/seasonal Allergy (Mild, Uncoded 12/12/23 08:09) Unknown Medication List - [facility] cetirizine (Zyrtec) 10 mg PO DAILY PRN cholecalciferol (vitamin D3) 25 mcg PO DAILY CPAP (CPAP Machine/Device) As directed esomeprazole magnesium 20 mg PO DAILY hydrochlorothiazide 12.5 mg PO DAILY levothyroxine 25 mcg PO DAILY multivitamin 1 tab PO DAILY omeprazole 40 mg PO DAILY zolpidem ER 6.25 mg PO BEDTIME PRN 30 days Tobacco use date assessed: 07/27/23 Dental Screening Dental Screen Date: 07/27/23 HPI 4 month follow up HPI Details sleep apnea: using cpap, noticed a difference with use in the beginning, but not as much anymore. hypothyroid: on levo, thyroid function is fine. pt does not notice a big difference with use of med, and overall fatigue. +TAMICA in the past, rheum did not seem too concerned. Will recheck labs, including a testosterone. Pt is to follow up with sleep medicine in the future. NOTE: pt is under a lot of stress between work life and home life. [facility] Medical History Retroperitoneal mass Seminoma of left testis H/O splenomegaly Fatty liver Surgical History H/O unilateral orchiectomy Family History Mother No problems noted. 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 1. Little interest or pleasure in doing things: not at all 2. Feeling down, depressed, or hopeless: not at all 3. Trouble falling or staying asleep, or sleeping too much: several days 4. Feeling tired or having little energy: several days 5. Poor appetite or overeating: not at all 6. Feeling bad about yourself - or that you are a failure or have let yourself or your family down: not at all 7. Trouble concentrating on things, such as reading the newspaper or watching television: not at all 8. Moving or speaking so slowly that other people could have noticed. Or the opposite - being so fidgety or restless that you have been moving around a lot more than usual: not at all 9. Thoughts that you would be better off or of hurting yourself in some way: not at all Total score: 2 Depression Screening Interpretation: Negative Depression Screening Done: Yes 10500 - PHQ-9 Billing: Yes Source: Developed by Drs. Theo Reyes, Leticia Banerjee, Trenton Rodas and colleagues, with an educational vannessa from [employer]. Thrive Questionnaire Date Thrive assessed: 07/27/23 I am a: Patient What is your living situation today?: I have a steady place to live Within the past 12 months, did the food you bought not last and you didn't have the money to get more?: Never true Within the past 12 months, did you worry whether your food would run out before you got money to buy more?: Never true Do you have trouble paying for medicines?: No Do you have trouble getting transportation to medical appointments?: No Do you have trouble paying your heating and electricity bill?: No Do you have trouble taking care of your child, family member or friend?: No Do you have trouble with day-to-day activities such as bathing, preparing meals, shopping, managing finances, etc.?: No Are you currently unemployed and looking for a job?: No Are you interested in more education?: Yes Please select the resources that you would like help with: Housing/Senior Living Currently or been in a relationship where the following occur: No concerns reported THRIVE Score: 0 AUDIT C Alcohol Use Questionnaire (AUDIT-C) 1. How often do you have a drink containing alcohol?: Monthly or less 2. How many drinks containing alcohol do you have on a typical day when you are drinking?: 3 or 4 3. How often do you have six or more drinks on one occasion?: Less than monthly Total Score: 3 SHIRA-7 AMB Questionnaire SHIRA-7 Date SHIRA - 7 assessed: 12/12/23 Feeling nervous, anxious, or on edge: 0 = Not at all Not being able to stop or control worryin = Not at all Worrying too much about different things: 0 = Not at all Trouble relaxin = Not at all Being so restless that it is hard to sit still: 0 = Not at all Becoming easily annoyed or irritable: 1 = Several days Feeling afraid as if something awful might happen: 0 = Not at all Total SHIRA-7 score (0-4 normal; 5-9 mild; 10-14 moderate; 15-21 severe): 1 Source: Developed by Drs. Theo Reyes, Leticia Banerjee, Trenton Rodas and colleagues, with an educational vannessa from [employer]. SHIRA-7 Assessment Billing SHIRA-7 Assessment Tool: SHIRA-7 Assessment 70400 Physical exam (Primary Care) Vital Signs: Last Vital Signs Pulse 82 12/12/23 08:09 BP 130/90 H 12/12/23 08:09 Pulse Ox 97 12/12/23 08:09 Oxygen Delivery Method Room Air 12/12/23 08:09 BMI result Body Mass Index 31.5 Tobacco/Smoking Status: Tobacco use Status Tobacco use date assessed 07/27/23 12/12/23 08:04 Patient Tobacco Use Status Never used Tobacco 12/12/23 08:04 e-Cigarette/Vaping Use Never Used 12/12/23 08:04 PHQ-9: PHQ-9 Score PHQ-9: Total score 2 12/12/23 08:11 Depression Screening Interpretation: Negative Thrive Assessment: Date of Thrive Assessment Date Thrive assessed 07/27/23 12/12/23 08:04 Currently or been in a relationship where the following occur: No concerns reported Const General: cooperative Resp Effort & Inspection: normal respiratory effort Auscultation: clear to auscultation bilaterally Cardio Rate: regular rate Rhythm: regular rhythm Heart sounds: S1 normal heart sound present and S2 normal heart sound present Assessment and Plan Assessment & Plan (1) Fatigue: Code(s): R53.83 - Other fatigue Plan: labs ordered (2) JVAY (obstructive sleep apnea): Code(s): G47.33 - Obstructive sleep apnea (adult) (pediatric) Plan: following up with sleep medicine Orders: Orders TSH reflex Free T4 Today R53.83 - Other fatigue Ferritin Today R53.83 - Other fatigue IRON PROFILE Today R53.83 - Other fatigue Complete Blood Count Auto Diff Today R53.83 - Other fatigue Comprehensive Met. Panel Today R53.83 - Other fatigue Testosterone, Free/Total Today R53.83 - Other fatigue Tick-borne Disease Molecular Today R53.83 - Other fatigue Lyme IgG/IgM w/reflex to WB Today R53.83 - Other fatigue Vitamin B12 and Folate Today R53.83 - Other fatigue Vitamin D 25-OH Total Today R53.83 - Other fatigue Coding Level of Care Code Est Pt Level 3 (97505) Diagnoses Fatigue R53.83 JAVY (obstructive sleep apnea) G47.33 Additional Codes SHIRA-7 Assessment Billing - SHIRA-7 Assessment Tool: SHIRA-7 Assessment 00004 ([id number])
[2023-12-12 08:09] VITALS: BP 130/90; PULSE 82; O2SAT 97; BMI 31.5
== END 2023-12-12 09:01 | disposition home or self-care (01) ==
PROVIDERS: PCP Nurse Practitioner Family; Visit Provider Nurse Practitioner Family
DX: R53.83 Other fatigue (principal); G47.33 Obstructive sleep apnea (adult) (pediatric)
CPT/HCPCS: 99213

== ENCOUNTER 2023-12-14 06:39 | Outpatient (REF) | payer BC, SELFPAY ==
[2023-12-14 10:06] LABS: MANUAL DIFF FLAG NO
[2023-12-14 10:11] LABS: Basophils Percent Auto 0.5 % (0-2); Eosinophils Absolute Auto 0.3 X10*3/uL (0.0-0.4); Eosinophils Percent Auto 4.7 % (0-4); Hematocrit 45.2 % (42.0-52.0); Hemoglobin 15.7 g/dl (14.0-18.0); Imm Gran Abs Auto 0.02 X10*3/uL (0.00-0.03); Imm Gran Pct Auto 0.3 % (0.0-0.4); Lymphocytes Absolute Auto 1.6 X10*3/uL (1.2-4.9); Lymphocytes Percent Auto 28.3 % (20-40); Mean Corpuscular HGB Conc 34.7 g/dl (31.0-36.0); Mean Corpuscular Hemoglobin 30.2 pg (27.0-33.0); Mean Corpuscular Volume 86.9 fL (80.0-98.0); Mean Platelet Volume 9.6 fL (9.4-12.4); Monocytes Absolute Auto 0.5 X10*3/uL (0.1-1.2); Monocytes Percent Auto 8.4 % (2-11); Neutrophils Absolute Auto 3.3 x10*3/uL (2.0-8.3); Neutrophils Percent Auto 57.8 % (45-73); Platelet Count 191 X10*3/uL (160-400); Red Cell Distribution Width 12.5 % (11.0-16.0); White Blood Count 5.7 X10*3/uL (4.8-10.8)
[2023-12-14 10:34] LABS: Alanine Aminotransferase 40 U/L (0-40); Albumin Level 4.4 g/dL (3.5-5.0); Alkaline Phosphatase 74 U/L (39-117); Anion Gap 12 (12-20); Aspartate Amino Transferase 23 U/L (5-37); Bilirubin Total 0.7 mg/dL (0.0-1.0); Blood Urea Nitrogen 21 mg/dL (9-16); Calcium 9.6 mg/dL (8.4-10.2); Carbon Dioxide 27 mmol/L (22-29); Chloride 105 mmol/L (96-108); Estimated Glomerular Filt Rate > 60; Glucose Random 102 mg/dL (60-115); Iron 75 mcg/dL (45-160); Percent Iron Saturation 29 % (15-50); Sodium 140 mmol/L (135-145); Total Iron Binding Capacity 262 mcg/dL (228-428); Total Protein 6.7 g/dL (6.5-8.0); Unsaturated Iron Binding 187 ug/dL
[2023-12-14 10:55] LABS: Ferritin 318 ng/mL (20-250); TSH reflex Free T4 1.86 uIU/mL (0.32-4.0); Vitamin D 25-OH Total 62.6 ng/mL (>30)
[2023-12-14 11:06] LABS: Folate 10.5 ng/mL (> or = 4.0); Vitamin B12 657 pg/mL (200-900)
[2023-12-15 16:59] LABS: Lyme Abs Screen <0.90 index
[2023-12-16 16:18] LABS: A. Phagocytphilium DNA,RT-PCR NOT DETECTED (NOT DETECTED); Babesia Microti DNA, RT-PCR NOT DETECTED (NOT DETECTED); Borrelia Miyamotoi,DNA RT-PCR NOT DETECTED (NOT DETECTED); E.Chaffeensis DNA RT-PCR NOT DETECTED (NOT DETECTED); Lyme(Borrelia ssp)DNA RT-PCR NOT DETECTED (NOT DETECTED)
[2023-12-24 08:08] LABS: Testosterone, Free 74.1 pg/mL (35.0-155.0); Testosterone, Total 394 ng/dL (250-1100)
== END 2023-12-14 06:40 | disposition home or self-care (01) ==
LOC: HO.HMGCLDS 06:39
PROVIDERS: PCP Nurse Practitioner Family; Visit Provider Nurse Practitioner Family
DX: R53.83 Other fatigue (principal)
CPT/HCPCS: 36415; 80053; 82306; 82607; 82728; 82746; 83540; 84402; 84403; 84443; 85025; 86617; 86618; 87468; 87469; 87478; 87484; 87798

== ENCOUNTER 2024-03-04 13:41 | Outpatient (AMB) | payer BC, SELFPAY ==
[2024-03-04 13:44] VITALS: BP 130/78; PULSE 80; O2SAT 98; BMI 32.6
--- NOTE | 2024-03-04 13:44 | MHC.PC.OV ---
Vital Signs 03/04/24 13:44 Height 5 ft 9 in Weight 221 lb BMI 32.6 BP 130/78 Blood Pressure Location Rt brachial Position Sitting Pulse 80 Pulse Source Pulse Oximeter Pulse Oximetry (%) 98 Oxygen Delivery Method Room Air Intake Visit Reasons: Annual PE Intake Note: pt i here for annual exam Sharples Machine Operator Required: No Allergies No Known Allergies [No Known Allergies*] Allergy (Verified 03/04/24 14:23) pollen/seasonal Allergy (Mild, Uncoded 03/04/24 14:23) Unknown Medication List - Last Reconciled 03/04/24 by KAMRAN Villa cetirizine (Zyrtec) 10 mg PO DAILY PRN cholecalciferol (vitamin D3) 25 mcg PO DAILY CPAP (CPAP Machine/Device) As directed esomeprazole magnesium 20 mg PO DAILY hydrochlorothiazide 12.5 mg PO DAILY levothyroxine 25 mcg PO DAILY multivitamin 1 tab PO DAILY omeprazole 40 mg PO DAILY zolpidem ER 6.25 mg PO BEDTIME PRN 30 days Tobacco use date assessed: 07/27/23 Dental Screening Dental Screen Date: 07/27/23 HPI Annual PE HPI Details Pt is here for a PE. Will order labs. Pt c/o cough and congestion. He reports increased mucus production. Will send guaifenesin with codeine. Educated pt on risk of addiction, this is not a long-term med. Pt understands that they can not drive while taking this med, share this med, and to only take as prescribed. [facility] Medical History Retroperitoneal mass Seminoma of left testis H/O splenomegaly Fatty liver Surgical History H/O unilateral orchiectomy Family History Mother No problems noted. 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 63239 - PHQ-9 Billing: Patient declined-do not bill Source: Developed by Drs. Theo Reyes, Leticia Banerjee, Trenton Rodas and colleagues, with an educational vannessa from [employer]. Thrive Questionnaire Date Thrive assessed: 03/04/24 I am a: Patient What is your living situation today?: I have a steady place to live Within the past 12 months, did the food you bought not last and you didn't have the money to get more?: Never true Within the past 12 months, did you worry whether your food would run out before you got money to buy more?: Never true Do you have trouble paying for medicines?: No Do you have trouble getting transportation to medical appointments?: No Do you have trouble paying your heating and electricity bill?: No Do you have trouble taking care of your child, family member or friend?: No Do you have trouble with day-to-day activities such as bathing, preparing meals, shopping, managing finances, etc.?: No Are you currently unemployed and looking for a job?: No Are you interested in more education?: Yes Please select the resources that you would like help with: None Currently or been in a relationship where the following occur: No concerns reported THRIVE Score: 0 SHIRA-7 AMB Questionnaire SHIRA-7 Date SHIRA - 7 assessed: 12/12/23 Source: Developed by Drs. Theo Reyes, Leticia Banerjee, Trenton Rodas and colleagues, with an educational vannessa from [employer]. SHIRA-7 Assessment Billing SHIRA-7 Assessment Tool: pt declined-do not bill Review of Systems Const Denies chills and Denies fever(s) Eyes Denies blurry vision ENT Denies vertigo, Denies dizziness, Reports nasal congestion and Denies sore throat Card Denies chest pain at rest, Denies chest pain with activity, Denies diaphoresis, Denies dyspnea and Denies dyspnea on exertion Resp Reports cough, Denies dyspnea, Denies dyspnea on exertion and Denies wheezing GI Denies abdominal pain, Denies melena, Denies hematochezia, Denies constipation, Denies diarrhea and Denies loose stools Denies hematuria Musc Denies numbness and Denies tingling Skin/Breast Denies lesions Neuro Denies vertigo, Denies dizziness, Denies numbness and Denies tingling Psych Denies anxiety, Denies depression, Denies homicidal ideation, Denies suicidal ideation and Denies other (substance abuse) Aller/Immun Denies wheezing Physical exam (Primary Care) Vital Signs: Last Vital Signs Pulse 80 03/04/24 13:44 BP 130/78 03/04/24 13:44 Pulse Ox 98 03/04/24 13:44 Oxygen Delivery Method Room Air 03/04/24 13:44 BMI result Body Mass Index 32.6 Tobacco/Smoking Status: Tobacco use Status Tobacco use date assessed 07/27/23 03/04/24 13:44 Patient Tobacco Use Status Never used Tobacco 03/04/24 13:44 e-Cigarette/Vaping Use Never Used 03/04/24 13:44 Thrive Assessment: Date of Thrive Assessment Date Thrive assessed 03/04/24 03/04/24 13:46 Currently or been in a relationship where the following occur: No concerns reported Const General: cooperative Nutritional Appearance: well nourished Orientation/consciousness: patient oriented x3 HENMT Head: Yes normal to inspection, Yes normocephalic and Yes atraumatic Ears: TM's normal bilaterally Eyes General: appearance normal, both eyes and all related structures Alignment and Position: alignment normal and position normal Neck Neck: Yes normal visual inspection, Yes no lymphadenopathy and Yes supple Resp Effort & Inspection: normal respiratory effort Auscultation: clear to auscultation bilaterally Cardio Rate: regular rate Rhythm: regular rhythm Heart sounds: S1 normal heart sound present, S2 normal heart sound present and no murmurs GI Palpation (GI): Soft to palpation and nontender Auscultation: normal bowel sounds Male General Exam: Yes normal external exam Penis: normal penis Scrotum: scrotum normal, testes descended bilaterally and no inguinal hernias Testes: no testicular mass Skin Rashes: no rashes Neuro General: patient oriented x3, moves all extremities, no focal motor deficits and deep tendon reflexes 2+ bilaterally Romberg Test: Negative Psych Appearance: grossly normal Mental Status: mental status grossly normal Speech and movement: Normal speech and movement present Affect: normal affect Attitude: cooperative Thought process: Normal thought process present Thought content: Normal thought content present Insight: Good insight present (Psych) Judgement: Good judgement present (Psych) Coding Level of Care Code Est Pt Prev Care 40-64y(05889) Diagnoses Physical exam Z00.00 Screening for prostate cancer Z12.5 Cough R05.9 Assessment & Plan Assessment & Plan (1) Physical exam: Code(s): Z00.00 - Encounter for general adult medical examination without abnormal findings Category: Medical Plan: labs ordered (2) Screening for prostate cancer: Code(s): Z12.5 - Encounter for screening for malignant neoplasm of prostate Category: Medical Plan: PSA ordered (3) Cough: Code(s): R05.9 - Cough, unspecified Category: Medical Plan: cough medicine sent, pt understands a Narcotic was sent. not to share, drive, and only take as prescribed Plan The patient agreed to the use of a medical insurance claims specialist for this encounter. Scribed for LETY Green-BC by Aria Dotson medical insurance claims specialist, on 03/04/2024 at 14:20 EST. Orders: Orders TSH reflex Free T4 Today Z00.00 - Encounter for general adult medical examination without abnormal findings UA CC w/rflx Micro + Cult Today Z00.00 - Encounter for general adult medical examination without abnormal findings Lipid Panel Today Z00.00 - Encounter for general adult medical examination without abnormal findings Complete Blood Count Auto Diff Today Z00.00 - Encounter for general adult medical examination without abnormal findings Comprehensive [place]. Panel Fast Today Z00.00 - Encounter for general adult medical examination without abnormal findings Prostate Specific Antigen Scr Today Z12.5 - Encounter for screening for malignant neoplasm of prostate Medications: New codeine-guaifenesin 10-100 mg/5 mL do not take concurrently with Zolpidem. 5 mL PO BEDTIME PRN 120 mL 0RF cough
== END 2024-03-04 14:37 | disposition home or self-care (01) ==
PROVIDERS: PCP Nurse Practitioner Family; Visit Provider Nurse Practitioner Family
DX: Z00.00 Encounter for general adult medical examination without abnormal findings (principal); Z12.5 Encounter for screening for malignant neoplasm of prostate; R05.9 Cough, unspecified

== ENCOUNTER → 2024-03-04 13:41 | Outpatient (BNVA) | payer BC, SELFPAY | PROVIDERS: PCP Nurse Practitioner Family; Visit Provider Nurse Practitioner Family ==

== ENCOUNTER 2024-06-14 06:40 | Outpatient (REF) | payer BC, SELFPAY ==
--- OUTSIDE RECORDS SUMMARY | 2024-06-14 06:42 | XMS_ITS | Clinical Summary ---
Author Organization [facility] Address [address] [id number] Care Team Providers Care School Superintendent Name Role Phone Milton Schaefer Primary Care Provider [phone] Allergies No known active allergies Medications Medication Sig Dispensed Refills Start Date End Date Status omeprazole (PRILOSEC) 20 MG capsule Take 1 capsule (20 mg total) by mouth daily. 0 Active cetirizine (ZYRTEC) 10 MG tablet Take 1 tablet (10 mg total) by mouth daily. 0 Active zolpidem (AMBIEN) 5 MG tablet Take 1 tablet (5 mg total) by mouth every night at bedtime as needed for sleep. 0 Active Multiple Vitamin (MULTI-VITAMIN DAILY PO) Take by mouth. 0 Active levothyroxine (SYNTHROID) tablet 25 mcg Take 1 tablet (25 mcg total) by mouth every morning on an empty stomach. 0 Active hydroCHLOROthiazide (MICROZIDE) 12.5 MG capsule Take 1 capsule (12.5 mg total) by mouth daily. 0 Active Active Problems No known active problems Social History Tobacco Use Types Packs/Day Years Used Date Smoking Tobacco: Never Smokeless Tobacco: Never Alcohol Use Standard Drinks/Week Comments Yes 0 (1 standard drink = 0.6 oz pur e alcohol) social Sex and Gender Information Value Date Recorded Sex Assigned at Not on file Gender Identity Not on file Sexual Orientation Not on file Job Start Date Occupation Industry Not on file Not on file Not on file Last Filed Vital Signs Vital Sign Reading Time Taken Comments Blood Pressure 146/90 02/29/2024 9:14 AM EDT Pulse 94 02/29/2024 9:14 AM EDT Temperature 36.9 ??C (98.5 ??F) 02/29/2024 9:14 AM ED T Respiratory Rate 16 10/16/2017 10:28 AM EDT Oxygen Saturation 99% 02/29/2024 9:14 AM EDT Inhaled Oxygen Concentration - - Weight 101.2 kg (223 lb) 02/29/2024 9:14 AM EDT Height 175.3 cm (5' 9 ) 12/10/2021 9:35 AM EDT Body Mass Index 32.93 12/10/2021 9:35 AM EDT Plan of Treatment Health Maintenance Due Date Last Done Comments Hepatitis B Vaccines (1 of 3 - 3-dose series) 1980 Hepatitis C Screening 1980 COVID-19 Vaccine (#1) 02/18/1985 Pneumococcal Vaccine (1 of 2 - PCV) 02/18/1986 Depression Screening 1992 Preventative Health Evaluation 02/18/1998 DTap / Tdap / Td (1 - Tdap) 02/18/1999 Influenza Vaccine (#1) 2024 RSV Ped < 20 months Aged Out No longe r eligible based on patient's age to complete this topic Care Teams School Superintendent Relationship Specialty Start Date End Date Milton Schaefer [address] [place] [address] PCP - General Family Medicine 09/07/17
--- OUTSIDE RECORDS SUMMARY | 2024-06-14 06:42 | XMS_ITS | Clinical Summary ---
Author Organization [facility] [place] [address] Phone Care Team Providers Care Admissions Dean Name Role Phone Milton Schaefer NP Primary Care Provider Social History Tobacco Use Types Packs/Day Years Used Date Smoking Tobacco: Never Smokeless Tobacco: Never Alcohol Use Standard Drinks/Week Comments Yes 0 (1 standard drink = 0.6 oz pur e alcohol) Sex and Gender Information Value Date Recorded Sex Assigned at Not on file Gender Identity Not on file Sexual Orientation Not on file Obstetrics History Last Filed Vital Signs Vital Sign Reading [...] Health Maintenance Due Date Last Done Comments COVID-19 Vaccine (#1) 02/18/1985 Pneumococcal Vaccine: Pediat rics (0 to 5 Years) and At-Risk Patients (6 to 64 Years) (1 of 2 - PCV) 02/18/1986 DTaP,Tdap,and Td Vaccines (1 - Tdap) 02/18/1999 Hepatitis B Vaccines (1 of 3 - 19+ 3-dose series) 02/18/1999 Cholesterol Screening (Lipid Panel) 04/22/2022 Depression Screening 04/22/2022 HIV Screening 04/22/2022 Hepatitis C Screening 04/22/2022 Social Influencers of Health Screening 04/22/2022 Influenza Vaccine (#1) 2024 HIB Vaccines Aged Out No longer eligi ble based on patient's age to complete this topic HPV Vaccines Aged Out No longer eligi ble based on patient's age to complete this topic Hepatitis A Vaccines Aged Out No long er eligible based on patient's age to complete this topic IPV Vaccines Aged Out No longer eligi ble based on patient's age to complete this topic MMR Vaccines Aged Out No longer eligi ble based on patient's age to complete this topic Meningococcal ACWY Vaccine Aged Out N o longer eligible based on patient's age to complete this topic RSV Immunization Patients Un kia 20 months Aged Out No longer eligible b ased on patient's age to complete this topic Varicella Vaccines Aged Out No longer eligible based on patient's age to complete this topic Care Teams Admissions Dean Relationship Specialty Start Date End Date Milton Schaefer NP [address], [place] PCP - General Family Medicine 09/07/17
[2024-06-14 10:53] LABS: Appearance Urine Turbid; Color Urine Yellow; Glucose Urine UA Negative (Negative); Leukocyte Esterase Urine Negative (Negative); Nitrite Urine Negative (Negative); PH 5.5 (5.0-9.0); Specific Gravity - Urine 1.025 (1.005-1.025); Urine Blood Negative (Negative); Urine Ketones Negative (Negative); Urine Protein Negative (Neg-Trace)
[2024-06-14 10:55] LABS: MANUAL DIFF FLAG NO
[2024-06-14 11:01] LABS: Basophils Absolute Auto 0.1 X10*3/uL (0.0-0.2); Basophils Percent Auto 0.9 % (0-2); Eosinophils Absolute Auto 0.2 X10*3/uL (0.0-0.4); Hematocrit 45.8 % (42.0-52.0); Hemoglobin 15.7 g/dl (14.0-18.0); Imm Gran Abs Auto 0.01 X10*3/uL (0.00-0.03); Imm Gran Pct Auto 0.2 % (0.0-0.4); Lymphocytes Absolute Auto 1.9 X10*3/uL (1.2-4.9); Mean Corpuscular HGB Conc 34.3 g/dl (31.0-36.0); Mean Corpuscular Hemoglobin 29.6 pg (27.0-33.0); Mean Corpuscular Volume 86.4 fL (80.0-98.0); Mean Platelet Volume 9.8 fL (9.4-12.4); Monocytes Absolute Auto 0.6 X10*3/uL (0.1-1.2); Monocytes Percent Auto 10.8 % (2-11); Neutrophils Absolute Auto 2.9 x10*3/uL (2.0-8.3); Neutrophils Percent Auto 51.1 % (45-73); Platelet Count 205 X10*3/uL (160-400); Red Cell Distribution Width 12.3 % (11.0-16.0); White Blood Count 5.8 X10*3/uL (4.8-10.8)
[2024-06-14 11:28] LABS: Alanine Aminotransferase 66 U/L (0-40); Albumin Level 4.5 g/dL (3.5-5.0); Alkaline Phosphatase 71 U/L (39-117); Anion Gap 12 (12-20); Aspartate Amino Transferase 32 U/L (5-37); Bilirubin Total 0.5 mg/dL (0.0-1.0); Blood Urea Nitrogen 36 mg/dL (9-16); Calcium 10.1 mg/dL (8.4-10.2); Carbon Dioxide 27 mmol/L (22-29); Chloride 105 mmol/L (96-108); Cholesterol 186 mg/dL (<200); Estimated Glomerular Filt Rate > 60; Glucose Fasting 101 mg/dL (60-99); HDL Cholesterol 43 mg/dL (>40); LDL Cholesterol Calculated 126 mg/dL (<100); Potassium 3.7 mmol/L (3.3-5.1); Sodium 140 mmol/L (135-145); Total Protein 7.1 g/dL (6.5-8.0); Triglycerides 85 mg/dL (<150)
[2024-06-14 11:44] LABS: Prostate Specific Antigen Scr 0.87 ng/mL (<0.05-4.0)
== END 2024-06-14 06:41 | disposition home or self-care (01) ==
LOC: HO.HMGCLDS 06:40
PROVIDERS: PCP Nurse Practitioner Family; Visit Provider Nurse Practitioner Family
DX: Z00.00 Encounter for general adult medical examination without abnormal findings (principal); Z12.5 Encounter for screening for malignant neoplasm of prostate; Z13.6 Encounter for screening for cardiovascular disorders
CPT/HCPCS: 36415; 80053; 80061; 81003; 84153; 84443; 85025

== ENCOUNTER 2024-06-17 07:55 | Outpatient (AMB) | payer BC, SELFPAY ==
--- OUTSIDE RECORDS SUMMARY | 2024-06-17 07:56 | XMS_ITS | Clinical Summary ---
Author Organization [facility] [place] [address] Phone Care Team Providers Care Geophysical Operator Name Role Phone Milton Schaefer NP Primary [...] age to complete this topic Care Teams Geophysical Operator Relationship Specialty Start Date End Date Milton Schaefer NP [address] [place], [place] PCP - General Family Medicine 09/07/17
--- OUTSIDE RECORDS SUMMARY | 2024-06-17 07:56 | XMS_ITS | Encounter Summary ---
Author Organization [facility] Address [id number] [place] [id number] Care Team Providers Care Circuit Tester Name Role Phone Milton Schaefer LARA Primary Care Provider Encounter Details Date Type Department Care Team ([facility] st Contact Info) Description 02/29/2024 9:05 AM EDT Hospital Encounter TH HISTORIC ENCOUNTERS EASTERN CONVERSION ONLY Paola Hassan MD [address] [place] [id number] Social History Tobacco Use Types Packs/Day Years [...] of BEP followed by left orchiectomy at [facility], patient has been on surveillance (please [...] man, who presented to emergency room of [facility] in July 2017, with2-3 weeks off [...] recurrence or progression _Patient is scant at [facility] in early 2019 were unremarkable, patient's tumor marker AFP on 11/08/2019 was only 4.9 _Patient follow-up CT scan on 03/06/2020 showed interval decrease in left-sided abdominal retroperitoneal lymphadenopathy but it was done in [facility] compared with previous scan of pretreatmentscan [...] underwent left orchiectomy in December 2017 in [facility], patient has been on surveillance, never [...] Results * Miscellaneous reference lab test (02/29/2024) Provider Onbase LAB BLOOD ORDERABLES documented in this encounter Visit Diagnoses Not on filedocumented in this encounter Care Teams Circuit Tester Relationship Specialty Start Date End Date [facility] [address] [facility] [place] PCP - General Family Medicine 09/07/17 documented as of this encounter
--- OUTSIDE RECORDS SUMMARY | 2024-06-17 07:56 | XMS_ITS | Clinical Summary ---
Author Organization [facility] Address [address] [id number] Care Team Providers Care Director Strategy Name Role Phone Milton Schaefer Primary Care Provider [phone] Allergies No known active allergies Medications Medication [...] age to complete this topic Care Teams Director Strategy Relationship Specialty Start Date End Date Milton Schaefer [address] [place] [address] PCP - General Family Medicine 09/07/17
[2024-06-17 08:03] VITALS: BP 120/72; PULSE 92; TEMP 36.5; O2SAT 96; BMI 32.2
--- NOTE | 2024-06-17 08:03 | A.OFFPC_ITS ---
Vital Signs 06/17/24 08:03 Height 5 ft 9 in Weight 218 lb BMI 32.2 BP 120/72 Blood Pressure Location Lt brachial Position Sitting Pulse 92 Pulse Source Pulse Oximeter Temp 97.7 F Temp Source Oral Pulse Oximetry (%) 96 Oxygen Delivery Method Room Air Intake Visit Reasons: 4 month f/u Allergies No Known Allergies [No Known Allergies*] Allergy (Verified 06/17/24 08:05) pollen/seasonal Allergy (Mild, Uncoded 06/17/24 08:05) Unknown Tobacco use date assessed: 07/27/23 Dental Screening Dental Screen Date: 06/17/24 Did you have a dental visit in the last 12 months?: Yes Did you have a dental problem in the last 6 months where you did not have access to dental care?: No Was dental information given to patient?: Patient has dentist HPI 4 month f/u HPI Details History of Present Illness The patient is a 44-year-old male presenting for a routine physical examination. 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 He no longer follows up with oncology for this condition. Additionally, the patient has a history of fatty liver disease. His liver enzymes are currently slightly elevated, which is consistent with his known fatty liver disease. He is actively working on dietary modifications to manage this condition. There have been no new symptoms or disease exacerbations. The patient denies experiencing any shortness of breath, chest pain, gastrointestinal disturbances, anxiety, depression, or suicidal and homicidal ideation. Health Maintenance - The patient is due for a repeat [facility] assessment in approximately two months, which will include a hepatitis screen. - A colonoscopy is indicated due to age- related recommendations, anticipated in the fall. - The patient is actively working on tary modifications to manage fatty liver disease. Social History - No specific social determinants of hea lth were discussed in the conversation. Review of Systems - Respiratory: Denies shortness of breat h. - Cardiovascular: Denies chest pain. - Gastrointestinal: Denies gastrointesti nal issues such as blood in stool, constipation, and diarrhea. - Psychiatric: Denies anxiety, depressio n, suicidal ideation, and homicidal ideation. Physical Exam General: Cooperative, healthy appearing, comfortable, no acute distress and well developed Orientation: Patient oriented x3 Limitations: No limitations Head: Normal to inspection Ears: Exostosis noted to bilateral ear canals Nose: Normal external nose present Face and sinus: Normal facial exam Eyes: Appearance normal, both eyes and all related structures Neck: Normal visual inspection and Yes full ROM Respiratory: Normal respiratory effort and able to speak in complete sentences. Clear to auscultation bilaterally Cardiovascular: Regular rate and rhythm. Normal S1 and S2 : singular testicle GI: Normal to inspection. Soft to palpation and nontender Skin: No rashes or lesions noted Neuro: Patient oriented x3 Extremities: Normal to inspection Results - Labs: Slight elevation in liver enzyme s consistent with known fatty liver disease. Plan - I will obtain the latest oncology note to determine any recommended follow-up labs or imaging for the seminoma history. - The patient's liver function tests lakes[place] l be repeated in approximately two months, including a hepatitis screen, to monitor fatty liver disease. - The patient will be referred for a col onoscopy in the fall as part of routine health maintenance. - The patient is advised to continue tary adjustments to manage fatty liver disease. Discussion Notes I discussed with the patient the importance of ongoing monitoring due to his h istory of seminoma and current management of fatty liver disease. I emphasized the need for repeat liver function testing and hepatitis screening in two months, advising dietary modifications as a frias component of management. The colonoscopy was also discussed, with plans to arrange this in the fall. The patient agreed with the outlined plan and understood the rationale behind these recommendations. Patient Instructions - Continue your current dietary modifica tions to manage liver health. - Expect to repeat your liver function t ests and undergo a hepatitis screen in two months. - Prepare for a colonoscopy in the fall as part of routine screening. - Report any new symptoms such as abdomi nal pain or changes in gastrointestinal patterns. [facility] Medical History Retroperitoneal mass Seminoma of left testis H/O splenomegaly Fatty liver Surgical History H/O unilateral orchiectomy Family History Mother No problems noted. 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 1. Little interest or pleasure in doing things: not at all 2. Feeling down, depressed, or hopeless: not at all 3. Trouble falling or staying asleep, or sleeping too much: not at all 4. Feeling tired or having little energy: not at all 5. Poor appetite or overeating: not at all 6. Feeling bad about yourself - or that you are a failure or have let yourself or your family down: not at all 7. Trouble concentrating on things, such as reading the newspaper or watching television: not at all 8. Moving or speaking so slowly that other people could have noticed. Or the opposite - being so fidgety or restless that you have been moving around a lot more than usual: not at all 9. Thoughts that you would be better off or of hurting yourself in some way: not at all Total score: 0 Depression Screening Interpretation: Negative Depression Screening Done: Yes 58227 - PHQ-9 Billing: Yes Source: Developed by Drs. Theo Reyes, Leticia Banerjee, Trenton Rodas and colleagues, with an educational vannessa from [employer]. Thrive Questionnaire Date Thrive assessed: 03/04/24 I am a: Patient What is your living situation today?: I have a steady place to live Within the past 12 months, did the food you bought not last and you didn't have the money to get more?: Never true Within the past 12 months, did you worry whether your food would run out before you got money to buy more?: Never true Do you have trouble paying for medicines?: No Do you have trouble getting transportation to medical appointments?: No Do you have trouble paying your heating and electricity bill?: No Do you have trouble taking care of your child, family member or friend?: No Do you have trouble with day-to-day activities such as bathing, preparing meals, shopping, managing finances, etc.?: No Are you currently unemployed and looking for a job?: No Are you interested in more education?: No Please select the resources that you would like help with: None Currently or been in a relationship where the following occur: No concerns reported THRIVE Score: 0 AUDIT C Alcohol Use Questionnaire (AUDIT-C) 1. How often do you have a drink containing alcohol?: Monthly or less 2. How many drinks containing alcohol do you have on a typical day when you are drinking?: 1 or 2 3. How often do you have six or more drinks on one occasion?: Less than monthly Total Score: 2 SHIRA-7 AMB Questionnaire SHIRA-7 Date SHIRA - 7 assessed: 12/12/23 Feeling nervous, anxious, or on edge: 0 = Not at all Not being able to stop or control worryin = Not at all Worrying too much about different things: 0 = Not at all Trouble relaxin = Not at all Being so restless that it is hard to sit still: 0 = Not at all Becoming easily annoyed or irritable: 0 = Not at all Feeling afraid as if something awful might happen: 0 = Not at all Total SHIRA-7 score (0-4 normal; 5-9 mild; 10-14 moderate; 15-21 severe): 0 Source: Developed by Drs. Theo Reyes, Leticia Banerjee, Trenton Rodas and colleagues, with an educational vannessa from [employer]. Physical exam (Primary Care) Vital Signs: Last Vital Signs Temp 97.7 F 06/17/24 08:03 Pulse 92 06/17/24 08:03 BP 120/72 06/17/24 08:03 Pulse Ox 96 06/17/24 08:03 Oxygen Delivery Method Room Air 06/17/24 08:03 BMI result Body Mass Index 32.2 Tobacco/Smoking Status: Tobacco use Status Tobacco use date assessed 07/27/23 06/17/24 08:04 Patient Tobacco Use Status Never used Tobacco 06/17/24 08:04 e-Cigarette/Vaping Use Never Used 06/17/24 08:04 PHQ-9: PHQ-9 Score PHQ-9: Total score 0 06/17/24 08:04 Depression Screening Interpretation: Negative Thrive Assessment: Date of Thrive Assessment Date Thrive assessed 03/04/24 06/17/24 08:04 Currently or been in a relationship where the following occur: No concerns reported Coding Level of Care Code Est Pt Prev Care 40-64y(90667) Diagnoses Physical exam Z00.00 Elevated liver enzymes R74.8 Additional Codes PHQ-9 - 67872 - PHQ-9 Billing: Yes ([id number]) Assessment & Plan Assessment & Plan (1) Physical exam: Code(s): Z00.00 - Encounter for general adult medical examination without abnormal findings Category: Medical Plan: . (2) Elevated liver enzymes: Code(s): R74.8 - Abnormal levels of other serum enzymes Category: Medical Plan . Orders: Orders Comprehensive Met. Panel Today R74.8 - Abnormal levels of other serum enzymes Hepatitis A,B,C Profile Today R74.8 - Abnormal levels of other serum enzymes Complete Blood Count Auto Diff Today R74.8 - Abnormal levels of other serum enzymes
== END 2024-06-17 08:33 | disposition home or self-care (01) ==
PROVIDERS: PCP Nurse Practitioner Family; Visit Provider Nurse Practitioner Family
DX: Z00.00 Encounter for general adult medical examination without abnormal findings (principal); R74.8 Abnormal levels of other serum enzymes

== ENCOUNTER → 2024-06-17 07:55 | Outpatient (BNVA) | payer BC, SELFPAY | PROVIDERS: PCP Nurse Practitioner Family; Visit Provider Nurse Practitioner Family | DX: Z00.00 Encounter for general adult medical examination without abnormal findings (principal); R74.8 Abnormal levels of other serum enzymes; Z85.47 Personal history of malignant neoplasm of testis; Z90.79 Acquired absence of other genital organ(s) | CPT/HCPCS: 96127 ==

== ENCOUNTER 2024-10-28 08:02 | Outpatient (AMB) | payer BC, SELFPAY ==
[2024-10-28 08:02] VITALS: BP 126/88; PULSE 92; TEMP 36.7; O2SAT 97; BMI 32.6
--- NOTE | 2024-10-28 08:02 | MHC.OFFWIV ---
Intake Vital Signs 10/28/24 08:02 Height 5 ft 9 in Weight 221 lb BMI 32.6 BP 126/88 Blood Pressure Location Lt brachial Position Sitting Pulse 92 Pulse Source Pulse Oximeter Temp 98.0 F Temp Source Oral Pulse Oximetry (%) 97 Oxygen Delivery Method Room Air Intake Visit Reasons: EP Pain on RT ear Intake Note: Pt presents to the office today for c/o right ear pain. Pt states he feels a stabbing pain in his ear x1 week but states last night was the worst. Patient Tobacco Use Status: Never used Tobacco Allergies No Known Allergies [No Known Allergies*] Allergy (Verified 10/28/24 08:06) pollen/seasonal Allergy (Mild, Uncoded 10/28/24 08:06) Unknown HPI HPI Comments History of Present Illness Details 44 y/o Male patient who presents to the walk in clinic with c/o Right Ear pain x 1 week. Describes the pain as Sharp/stabbing in nature - right ear. Reports that Pain got worse last night. 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 ENT recommended Monitoring the condition. Patient wondering if needed to f/u back with ENT. [facility] Medical History (Updated 10/28/24 @ 08:34 by Nesha Greenwood NP) Ear pain, right Retroperitoneal mass Seminoma of left testis H/O splenomegaly Fatty liver Surgical History H/O unilateral orchiectomy Family History Mother No problems noted. 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 Current occupational exposures/hazards: Yes Cognitive needs: No Hearing needs: No Vision needs: No Physical Exam Vital Signs: Last Vital Signs Temp 98.0 F 10/28/24 08:02 Pulse 92 06/16/25 08:02 BP 126/88 10/28/24 08:02 Pulse Ox 97 10/28/24 08:02 Oxygen Delivery Method Room Air 10/28/24 08:02 BMI result Body Mass Index 32.6 Const General: no acute distress Nutritional Appearance: obese Orientation/consciousness: patient oriented x3 HEENT Head: Yes normocephalic Ears: Abnormal EAC present (B/L ear canals with skin colored papules ?Exostosis) no erythema and no EA tenderness, no periauricular adenopathy, unable to visualize TM (Very Narrow Ear Canals with extra tissue blocking view) bilaterally and other (B/L ear canals with skin colored papules ?Exostosis) Neuro General: patient oriented x3 Psych Speech and movement: Normal speech and movement present Assessment & Plan Assessment & Plan (1) Ear pain, right: Code(s): H92.01 - Otalgia, right ear Plan: NSAIDs or Acetaminophen for pain relief. This seems to work for him. Discussed case with PCP (Milton Rico) - who recommended Rx for Prednisone for few days. PCP to place referral to ENT for patient. No infection B/L ears, no drainage, fluids or bleeding. Medications: New prednisone 20 mg PO DAILY 5 tabs 0RF 5 days H92.01 - Otalgia, right ear Coding Level of Care Code New Pt Level 4 (11246) Diagnoses Ear pain, right H92.01 Time Spent (min) 20
--- OUTSIDE RECORDS SUMMARY | 2024-10-28 08:05 | XMS_ITS | Encounter Summary ---
Author Organization [facility] Address [id number] [place] [id number] Care Team Providers Care Scientist Electronics Name Role Phone KariMilton allison Nick BERMUDEZ Primary Care Provider Encounter Details Date Type Department Care Team ([facility] st Contact Info) Description 02/29/2024 9:05 AM EDT Hospital Encounter TH HISTORIC ENCOUNTERS EASTERN CONVERSION ONLY Paola Hassan MD [address] [place] [id number] Social History Tobacco Use Types Packs/Day Years [...] of BEP followed by left orchiectomy at [facility], patient has been on surveillance (please see [...] man, who presented to emergency room of [facility] in July 2017, with2-3 weeks off worsening [...] recurrence or progression _Patient is scant at [facility] in early 2019 were unremarkable, patient's tumor marker AFP on 11/08/2019 was only 4.9 _Patient follow-up CT scan on 03/06/2020 showed interval decrease in left-sided abdominal retroperitoneal lymphadenopathy but it was done in [facility] compared with previous scan of pretreatmentscan of [...] underwent left orchiectomy in December 2017 in [facility], patient has been on surveillance, never had [...] on filedocumented in this encounter Care Teams Scientist Electronics Relationship Specialty Start Date End Date Milton Schaefer NP [address], [place] PCP - General Family Medicine 09/07/17 documented as of this encounter
== END 2024-10-28 08:30 | disposition home or self-care (01) ==
PROVIDERS: PCP Nurse Practitioner Family; Visit Provider Nurse Practitioner Family
DX: H92.01 Otalgia, right ear (principal)

== ENCOUNTER → 2024-10-28 08:02 | Outpatient (BNVA) | payer BC, SELFPAY | PROVIDERS: PCP Nurse Practitioner Family; Visit Provider Nurse Practitioner Family | DX: Z13.89 Encounter for screening for other disorder (principal) ==

== ENCOUNTER 2025-04-11 09:23 | Outpatient (REF) | payer BC, SELFPAY ==
--- OUTSIDE RECORDS SUMMARY | 2019-12-16 15:55 | XMS_ITS | Encounter Summary ---
Author Organization [facility] Address [address] [facility] [address] [place] [address] Phone Care Team Providers Care Labor Relations Manager Name Role Phone Milton Schaefer WRINGER AND SETTER Primary Care Provider + Encounter Details Date Type Department Care Team (Late st Contact Info) Description 12/16/2019 4:55 PM EDT Hospital Encounter [facility] [address] [place] [phone] Flower Cullen CNP [address] [place] [address] Social History Tobacco Use Types Packs/Day Years [...] symptoms around the second toeidentified. Flower Cullen VENDOR RELATIONSHIP MANAGER IMG XR LOWER EXTREMITY Janeth l Result documented in this encounter Visit Diagnoses Not on filedocumented in this encounter Additional Health Concerns Infection Onset Date Last Indicated Resolved Time CoV-Risk 09/06/2021 09/06/2021 09/17/2021 1:23 AM EDT documented as of this encounter Care Teams Labor Relations Manager Relationship Specialty Start Date End Date Milton Schaefer NP [facility] [place] [address] PCP - General Family Medicine 08/15/17 09/05/21 documented as of this encounter Additional Source Comments The information contained in this document represents components of the legal health record. It is not the complete legal health record.[facility]
--- OUTSIDE RECORDS SUMMARY | 2021-09-06 17:44 | XMS_ITS | Encounter Summary ---
Author Organization [facility] Address [address] [facility] [address] [place] [phone] Phone Care Team Providers Care Binder Cutter Hand Name Role Phone Milton Schaefer SALES WAREHOUSE DRIVER Primary Care Provider + Encounter Details Date Type Department Care Team (Late st Contact Info) Description 09/06/2021 6:44 PM EDT Hospital Encounter [facility] [address] [place] [phone] Flower Cullen CNP 12 [place] [address] [email or web address] Social History Tobacco Use Types Packs/Day Years [...] Name Priority Date/Time Associated Diagnosis Comments XR CHEST PA AND LATERAL 2 VIEWS Urgent/patient waiting 09/06/2021 6:51 PM EDT Cough documented in this encounter Results * XR CHEST PA AND LATERAL 2 VIEWS (09/06/2021 6:51 PM EDT) Anatomical Region Laterality Modality Chest Computed Radiogr aphy 09/06/2021 7:00 PM EDT Impressions 09/06/2021 7:01 PM EDT No acute process. Narrative 09/06/2021 7:01 PM EDT XR CHEST PA AND LATERAL 2 VIEWS COMPARISON: OSH chest CT dated 08/03/2017. FINDINGS: Devices/Tubes/Lines: None. Lungs: Normal. The lungs are clear. No focal consolidation or pulmonary edema. Pleura: Normal. No pleural effusion or pneumothorax. Heart/Mediastinum: Normal heart and mediastinum. Bones/Soft Tissues: Degenerative changes of the spine. Procedure Note Lilibeth Del Toro MD - 09/06/2021 XR CHEST PA AND LATERAL 2 VIEWS COMPARISON: OSH chest CT dated 08/03/2017. FINDINGS: Devices/Tubes/Lines: None. Lungs: Normal. The lungs are clear. No focal consolidation or pulmonaryedema. Pleura: Normal. No pleural effusion or pneumothorax. Heart/Mediastinum: Normal heart and mediastinum. Bones/Soft Tissues: Degenerative changes of the spine. IMPRESSION: No acute process. Flower Cullen LEAD PERSON IMG XR CHEST Final Resul t documented in this encounter Visit Diagnoses Not on filedocumented in this encounter Additional Health Concerns Infection Onset Date Last Indicated Resolved Time CoV-Risk 09/06/2021 09/06/2021 09/17/2021 1:23 AM EDT documented as of this encounter Care Teams Binder Cutter Hand Relationship Specialty Start Date End Date Milton Schaefer NP [address] [facility] [place] [address] PCP - General Family Medicine 09/06/21 documented as of this encounter Additional Source Comments The information contained in this document represents components of the legal health record. It is not the complete legal health record.[facility]
--- OUTSIDE RECORDS SUMMARY | 2024-02-29 08:05 | XMS_ITS | Encounter Summary ---
Author Organization [facility] Address [address] [place] [address] Care Team Providers Care Digital Archivist Name Role Phone KariMilton allison Nick BERMUDEZ Primary Care Provider Encounter Details Date Type Department Care Team ([facility] st Contact Info) Description 02/29/2024 9:05 AM EDT Hospital Encounter TH HISTORIC ENCOUNTERS EASTERN CONVERSION ONLY Paola Hassan MD [address] [place] [phone] Social History Tobacco Use Types Packs/Day Years [...] of BEP followed by left orchiectomy at [facility], patient has been on surveillance (please [...] presented to emergency room of [facility] in July 2017, with2-3 weeks off worsening [...] recurrence or progression _Patient is scant at [facility] in early 2019 were unremarkable, patient's tumor marker AFP on 11/08/2019 was only 4.9 _Patient follow-up CT scan on 03/06/2020 showed interval decrease in left-sided abdominal retroperitoneal lymphadenopathy but it was done in [facility] compared with previous scan of pretreatmentscan [...] underwent left orchiectomy in December 2017 in [facility], patient has been on surveillance, never [...] on filedocumented in this encounter Care Teams Digital Archivist Relationship Specialty Start Date End Date Milton Schaefer NP [address] [place], [place] PCP - General Family Medicine 09/07/17 documented as of this encounter
--- OUTSIDE RECORDS SUMMARY | 2025-04-11 09:26 | XMS_ITS | Encounter Summary ---
Author Organization [facility] Address [address] [place] [phone] Phone Care Team Providers Care Barge Pilot Name Role Phone Milton Schaefer LUGGAGE REPAIRER Primary Care Provider + Milton Schaefer LUGGAGE REPAIRER Primary Care Provider + Encounter Details Date Type Department Care Team (Late st Contact Info) Description 09/01/2017 Procedure Pass [facility] [address] [place] [address] Social History Tobacco Use Types Packs/Day Years Used Date Smoking Tobacco: Never Smokeless Tobacco: Never Sex and Gender Information Value Date Recorded Sex Assigned at Not on file Legal Sex Male 9:20 AM EDT Gender Identity Not on file Sexual Orientation Not on file documented as of this encounter Plan of Treatment Not on file documented as of this encounter Visit Diagnoses Not on filedocumented in this encounter Additional Health Concerns Infection Onset Date Last Indicated Resolved Time CoV-Risk 09/06/2021 09/06/2021 09/17/2021 1:23 AM EDT documented as of this encounter Care Teams Barge Pilot Relationship Specialty Start Date End Date Milton Schaefer NP [address] [place] [address] PCP - General Family Medicine 08/15/17 09/05/21 Milton Schaefer NP [address] [place] [address] PCP - General Family Medicine 09/06/21 documented as of this encounter Additional Source Comments The information contained in this document represents components of the legal health record. It is not the complete legal health record.[facility]
--- OUTSIDE RECORDS SUMMARY | 2025-04-11 09:26 | XMS_ITS | Encounter Summary ---
Author Organization [facility] Address [address] [place] [phone] Phone Care Team Providers Care Copy Cutter Name Role Phone Milton Schaefer SENIOR MOBILE WEB DEVELOPER Primary Care Provider + Milton Schaefer SENIOR MOBILE WEB DEVELOPER Primary Care Provider + Encounter Details Date Type Department Care Team (Late st Contact Info) Description 09/01/2017 Procedure Pass [facility] [address] [place] [address] Social History Tobacco Use Types Packs/Day Years [...] documented as of this encounter Care Teams Copy Cutter Relationship Specialty Start Date End Date Milton Schaefer NP [address] [place] [address] PCP - General Family Medicine 08/15/17 09/05/21 Milton Schaefer NP [address] [place] [address] PCP - General Family Medicine 09/06/21 documented as of this encounter Additional Source Comments The information contained in this document represents components of the legal health record. It is not the complete legal health record.[facility]
--- OUTSIDE RECORDS SUMMARY | 2025-04-11 09:26 | XMS_ITS | Encounter Summary ---
Author Organization [facility] Address [address] [address] Phone Care Team Providers Care Divider Operator Name Role Phone Milton Schaefer ROVER TENDER Primary Care Provider + Milotn Schaefer ROVER TENDER Primary Care Provider + Reason for Referral * MRI/CAT Scan - Closed Specialty Diagnoses / Procedures Referred By Contac t Referred To Contact Procedures CT Abdomen/Pelvis Outside (No Interpretation) Claudy Hollingsworth MD Phone: tel: fax: mailto:[email or web address] Referral ID Status Reason Start Date Expiration Date Visits Re quested Visits Authorized [id number] Closed 09/01/2017 09/01/2018 1 1 * MRI/CAT Scan - Closed Specialty Diagnoses / Procedures Referred By Contac t Referred To Contact Procedures CT Abdomen/Pelvis Outside (No Interpretation) Claudy Hollingsworth MD Phone: tel: fax: mailto:[email or web address] Referral ID Status Reason Start Date Expiration Date Visits Re quested Visits Authorized [id number] Closed 09/01/2017 09/01/2018 1 1 * MRI/CAT Scan - Closed Specialty Diagnoses / Procedures Referred By Contac t Referred To Contact Procedures CT Chest Outside (No Interpretation) Claudy Hollingsworth MD Phone: tel: fax: mailto:[email or web address] Referral ID Status Reason Start Date Expiration Date Visits Re quested Visits Authorized [id number] Closed 09/01/2017 09/01/2018 1 1 * MRI/CAT Scan - Closed Specialty Diagnoses / Procedures Referred By Contac t Referred To Contact Procedures CT Chest Outside (No Interpretation) Claudy Hollingsworth MD Phone: tel: fax: mailto:[email or web address] Referral ID Status Reason Start Date Expiration Date Visits Re quested Visits Authorized [id number] Closed 09/01/2017 09/01/2018 1 1 Encounter Details Date Type Department Care Team (Late st Contact Info) Description 09/01/2017 Transcribe Orders [facility] [address] [place] [address] Delroy Alejandro [address] [place] [phone] [email or web address] Social History Tobacco Use Types Packs/Day Years Used Date Smoking Tobacco: Never Smokeless Tobacco: Never Sex and Gender Information Value Date Recorded Sex Assigned at Not on file Legal Sex Male 9:20 AM EDT Gender Identity Not on file Sexual Orientation Not on file documented as of this encounter Plan of Treatment Not on file documented as of this encounter Results * US Pelvis Outside (No Interpretation) (09/01/2017 1:00 AM EDT) Narrative [facility] - 09/01/2017 9:30 AM EDT This study is for PACS storage only and not for interpretation. us Claudy Hollingsworth MD IMG OUTSIDE IMAGING W/OUT INT ERPRETATION Final Result [facility] * CT Abdomen/Pelvis Outside (No Interpretation) (09/01/2017 12:45 AM EDT) Narrative SYSTEMGENERATED, DOCUMENTATION - 09/01/2017 9:30 AM EDT This study is for PACS storage only and not for interpretation. us Claudy Hollingsworth MD IMG OUTSIDE IMAGING W/OUT INT ERPRETATION Final Result * CT Abdomen/Pelvis Outside (No Interpretation) (09/01/2017 12:30 AM EDT) Narrative SYSTEMGENERATED, DOCUMENTATION - 09/01/2017 9:30 AM EDT This study is for PACS storage only and not for interpretation. us Claudy Hollingsworth MD IMG OUTSIDE IMAGING W/OUT INT ERPRETATION Final Result * CT Chest Outside (No Interpretation) (09/01/2017 12:15 AM EDT) Narrative [facility] - 09/01/2017 9:30 AM EDT This study is for PACS storage only and not for interpretation. us Claudy Hollingsworth MD IMG OUTSIDE IMAGING W/OUT INT ERPRETATION Final Result Performing Organization Address [facility] Co de Phone Number [facility] * CT Chest Outside (No Interpretation) (09/01/2017 12:00 AM EDT) Narrative [facility] - 09/01/2017 9:30 AM EDT This study is for PACS storage only and not for interpretation. us Claudy Hollingsworth MD IMG OUTSIDE IMAGING W/OUT INT ERPRETATION Final Result Performing Organization Address City/State/[facility] Co de Phone Number [facility] documented in this encounter Visit Diagnoses Not on filedocumented in this encounter Additional Health Concerns Infection Onset Date Last Indicated Resolved Time CoV-Risk 09/06/2021 09/06/2021 09/17/2021 1:23 AM EDT documented as of this encounter Care Teams Divider Operator Relationship Specialty Start Date End Date Milton Schaefer NP [address] [facility] [place] [address] PCP - General Family Medicine 08/15/17 09/05/21 Milton Schaefer NP [address] [facility] [place] [address] PCP - General Family Medicine 09/06/21 documented as of this encounter Additional Source Comments The information contained in this document represents components of the legal health record. It is not the complete legal health record.[facility]
--- OUTSIDE RECORDS SUMMARY | 2025-04-11 09:26 | XMS_ITS | Clinical Summary ---
Author Organization [facility] [place] [address] Phone Care Team Providers Care Curtain Mender Name Role Phone Milton Schaefer NP Primary [...] Health Maintenance Due Date Last Done Comments Colorectal Cancer Screening: Colonoscopy 1980 DTaP,Tdap,and Td Vaccines (1 - Tdap) 02/18/1999 Hepatitis B Vaccines (1 of 3 - 19+ 3-dose series) 02/18/1999 HPV Vaccines (1 - 3-dose SCD M series) 02/18/2007 Cholesterol Screening (Lipid Panel) 04/22/2022 HIV Screening 04/22/2022 Hepatitis C Screening 04/22/2022 Social Influencers of Health Screening 04/22/2022 Depression Screening 05/15/2024 COVID-19 Vaccine ( - 2024-2 6 season) 2025 Influenza Vaccine (#1) 2025 RSV Immunization Adult Patie nts (1 - 1-dose 75+ series) 02/18/2055 HIB Vaccines Aged Out No longer eligi [...] patient's age to complete this topic Meningococcal B Vaccine Aged Out No l onger eligible based on patient's age to complete this topic Pneumococcal Vaccine: Pediat rics (0 to 5 Years) and At-Risk Patients (6 to 49 Years) Aged Out No longer eligible b ased on patient's age to complete this topic RSV Immunization Patients Un kia 20 months Aged Out No longer eligible b ased on patient's age to complete this topic Varicella Vaccines Aged Out No longer eligible based on patient's age to complete this topic Care Teams Curtain Mender Relationship Specialty Start Date End Date Milton Schaefer NP [address] [facility] [place] PCP - General Family Medicine 09/07/17
--- OUTSIDE RECORDS SUMMARY | 2025-04-11 09:26 | XMS_ITS | Clinical Summary ---
Author Organization [facility] Address [address] [facility] [address] [place] [phone] Phone Care Team Providers Care Nurse Practitioner Per Diem Name Role Phone Milton Schaefer CATERER'S AIDE Primary Care Provider + Allergies No known active allergies Medications cetirizine (ZYRTEC) 10 MG tablet Take 10 mg by mouth. Active multivitamins with iron-folic acid (CENTRUM COMPLETE) 18-400 mg-mcg Tab Take by mouth. Active acetaminophen (TYLENOL) 500 MG tablet Take 500 mg by mouth every 6 (six) hours as needed. Active zolpidem (AMBIEN) 5 MG tablet Take 5 mg by mouth. Active omeprazole (PRILOSEC) 20 MG capsule Take 20 mg by mouth 2 (two) times a day. 07/05/2021 Active Active Problems Problem Noted Date Diagnosed Date Testicular mass 11/14/2017 Overview (12/16/2019): Added automatically from request for surgery [id number] Immunizations No known immunizations Social History Tobacco Use Types Packs/Day Years [...] on file Sexual Orientation Not on file Last Filed Vital Signs Vital Sign Reading Time Taken Comments Blood Pressure 148/89 09/06/2021 6:04 PM EDT Pulse 88 09/06/2021 6:42 PM EDT Temperature 37.3 C (99.1 F) 09/06/2021 6:04 PM EDT Respiratory Rate 16 09/06/2021 6:04 PM EDT Oxygen Saturation 98% 09/06/2021 6:04 PM EDT Inhaled Oxygen Concentration - - Weight 95.3 kg (210 lb) 09/06/2021 6:04 PM EDT Height 175.3 cm (5' 9 ) 09/06/2021 6:04 PM EDT Body Mass Index 31.01 09/06/2021 6:04 PM EDT Plan of Treatment Health Maintenance Due Date Last Done Comments Adult Td,Tdap Booster 1980 LIPID PANEL 1980 DEPRESSION SCREENING 1992 HEPATITIS C SCREENING 02/18/1998 HIV ONE-TIME SCREENING (18-6 5 YEARS) 02/18/1998 INFLUENZA VACCINE (#1) 2024 03/27/2012 COVID-19 VACCINE (2 - 2024-2 6 season) 2025 09/10/2020 COLOGUARD 02/18/2025 COLONOSCOPY 02/18/2025 COLORECTAL CANCER SCREENING 02/18/2025 FIT TEST 02/18/2025 FOBT 02/18/2025 SIGMOIDOSCOPY 02/18/2025 VIRTUAL COLONOSCOPY 02/18/2025 SMOKING STATUS SCREENING (On ce After 26 Yrs) Completed 08/25/2017 HEPATITIS A VACCINES Aged Out No long er eligible based on patient's age to complete this topic HIB VACCINES Aged Out No longer eligi ble based on patient's age to complete this topic MENINGOCOCCAL VACCINES (ACWY) Aged Out No longer eligible based on patient's age to complete this topic MENINGOCOCCAL VACCINES (B) Aged Out N o longer eligible based on patient's age to complete this topic PNEUMOCOCCAL VACCINES (0-49 years) Aged Out No longer eligible based on patient's age to complete this topic Medical Devices Not on file [place] [address] [address] HMO [facility] PPO [place] [address] [place] [address] [facility] PPO EPO [address] [place], [place] [address]O Member Subscriber Plan / Payer (Ef fective 2016-Present) Name:Wendy Doll Relation to Subscriber:Self Name:WENDY DOLL Payer ID:Not on file [place] [place] Address: [address] [place] [address] HMO Member Subscriber Plan / Payer (Ef fective 2016-Present) Name:Wendy Doll Relation to Subscriber:Self Name:WENDY DOLL Payer ID:Not on file Type:O Address: [address] [place] [address] HMO Member Subscriber Plan / Payer (Ef fective 2016-Present) Name:Wendy Doll Relation to Subscriber:Self Name:WENDY DOLL Payer ID:Not on file Type:O Address: [address] PPO EPO HMO [facility] PPO EPO Member Subscriber Plan / Payer (Ef fective 2016-Present) Name:Wendy Doll Relation to Subscriber:Self Name:WENDY DOLL Payer ID:Not on file Type:O Address: [address] PPO EPO Member Subscriber Plan / Payer (Ef fective 2016-Present) Name:Wendy Doll Relation to Subscriber:Self Name:WENDY DOLL Payer ID:Not on file Type:HMO Address: [place] [id number] [facility] PPO EPO [facility] HMO PPO EPO Care Teams Nurse Practitioner Per Diem Relationship Specialty Start Date End Date Milton Schaefer NP [address] [place] [address] PCP - General Family Medicine 09/06/21 Additional Source Comments The information contained in this document represents components of the legal health record. It is not the complete legal health record.[facility]
--- OUTSIDE RECORDS SUMMARY | 2025-04-11 09:26 | XMS_ITS | Encounter Summary ---
Author Organization [facility] Address [address] [facility] [address] [place] [phone] Phone Care Team Providers Care Cabin Worker Name Role Phone Milton Schaefer CHILD MONITOR Primary Care Provider + Milton Schaefer CHILD MONITOR Primary Care Provider + Encounter Details Date Type Department Care Team (Late st Contact Info) Description 09/01/2017 Procedure Pass [facility] [address] [place] [address] Social History Tobacco Use Types Packs/Day Years [...] documented as of this encounter Care Teams Cabin Worker Relationship Specialty Start Date End Date Milton Schaefer NP [address] [place] [address] PCP - General Family Medicine 08/15/17 09/05/21 Milton Schaefer NP [address] [place] [address] PCP - General Family Medicine 09/06/21 documented as of this encounter Additional Source Comments The information contained in this document represents components of the legal health record. It is not the complete legal health record.[facility]
--- OUTSIDE RECORDS SUMMARY | 2025-04-11 09:26 | XMS_ITS | Encounter Summary ---
Author Organization [facility] Address [address] [place] [phone] Phone Care Team Providers Care Measurement Technician Name Role Phone Milton Schaefer RAILROAD PASSENGER AGENT Primary Care Provider + Milton Schaefer RAILROAD PASSENGER AGENT Primary Care Provider + Encounter Details Date Type Department Care Team (Late st Contact Info) Description 11/13/[address] [facility] Periop [address] [place] [address] Social History Tobacco Use Types Packs/Day Years [...] documented as of this encounter Care Teams Measurement Technician Relationship Specialty Start Date End Date Milton Schaefer, LARA [address] [place] [address] PCP - General Family Medicine 08/15/17 09/05/21 Milton Schaefer NP [address] [place] [address] PCP - General Family Medicine 09/06/21 documented as of this encounter Additional Source Comments The information contained in this document represents components of the legal health record. It is not the complete legal health record.[facility]
--- OUTSIDE RECORDS SUMMARY | 2025-04-11 09:26 | XMS_ITS | Encounter Summary ---
Author Organization [facility] Address [address] [facility] [address] [place] [address] Phone Care Team Providers Care Civil Estimator Name Role Phone Milton Schaefer TEXTILES SALES REPRESENTATIVE Primary Care Provider + Milton Schaefer TEXTILES SALES REPRESENTATIVE Primary Care Provider + Encounter Details Date Type Department Care Team (Late st Contact Info) Description 09/01/2017 Procedure Pass [facility] [address] [place] [address] Social History Tobacco Use Types Packs/Day Years [...] documented as of this encounter Care Teams Civil Estimator Relationship Specialty Start Date End Date Milton Schaefer NP [address] [facility] [place] [address] PCP - General Family Medicine 08/15/17 09/05/21 Milton Schaefer NP [address] [facility] [place] [address] PCP - General Family Medicine 09/06/21 documented as of this encounter Additional Source Comments The information contained in this document represents components of the legal health record. It is not the complete legal health record.[facility]
--- OUTSIDE RECORDS SUMMARY | 2025-04-11 09:26 | XMS_ITS | Clinical Summary ---
Author Organization [facility] Address [address] [id number] Care Team Providers Care Cyber Systems Operations Specialist Name Role Phone Milton Schaefer Primary Care Provider [phone] Allergies No known active allergies Medications Medication [...] 94 02/29/2024 9:14 AM EDT Temperature 36.9 C (98.5 F) 02/29/2024 9:14 AM EDT Respiratory Rate 16 10/16/2017 10:28 AM EDT [...] Hepatitis C Screening 1980 COVID-19 Vaccine (#1) 1980 Depression Screening 1992 Preventative Health Evaluation 02/18/1998 DTap / Tdap / Td (1 - Tdap) 02/18/1999 Influenza Vaccine (#1) 2025 Colon Cancer Screening (Colonoscopy) 02/18/2025 Pneumococcal Vaccine Aged Out No long er eligible based on patient's age to complete this topic RSV Ped < 20 months Aged Out No longe r eligible based on patient's age to complete this topic Care Teams Cyber Systems Operations Specialist Relationship Specialty Start Date End Date Milton Schaefer [address] [place] [address] PCP - General Family Medicine 09/07/17
[2025-04-11 12:38] LABS: MANUAL DIFF FLAG NO
[2025-04-11 12:46] LABS: Appearance Urine Clear; Glucose Urine UA Negative (Negative); PH 5.5 (5.0-9.0); Specific Gravity - Urine 1.020 (1.005-1.025)
[2025-04-11 12:46] LABS: Hematocrit 46.1 % (42.0-52.0); Hemoglobin 15.8 g/dl (14.0-18.0); Imm Gran Abs Auto 0.02 X10*3/uL (0.00-0.03); Imm Gran Pct Auto 0.3 % (0.0-0.4); Lymphocytes Absolute Auto 2.0 X10*3/uL (1.2-4.9); Mean Corpuscular HGB Conc 34.3 g/dl (31.0-36.0); Mean Corpuscular Hemoglobin 29.8 pg (27.0-33.0); Mean Corpuscular Volume 87.0 fL (80.0-98.0); NRBC Abs Auto 0.000 X10*3/uL (0.0-0.012); NRBC Pct Auto 0.0 /100WBC (0.0-0.2); Platelet Count 203 X10*3/uL (160-400); Red Blood Count 5.30 X10*6/uL (4.60-5.80); White Blood Count 6.0 X10*3/uL (4.8-10.8)
[2025-04-11 13:05] LABS: Alanine Aminotransferase 69 U/L (0-40); Albumin Level 4.5 g/dL (3.5-5.0); Alkaline Phosphatase 74 U/L (39-117); Anion Gap 12 (12-20); Aspartate Amino Transferase 33 U/L (5-37); Blood Urea Nitrogen 22 mg/dL (9-16); Calcium 9.4 mg/dL (8.4-10.2); Carbon Dioxide 29 mmol/L (22-29); Chloride 104 mmol/L (96-108); Cholesterol 168 mg/dL (<200); Estimated Glomerular Filt Rate 57; HDL Cholesterol 40 mg/dL (>40); Potassium 4.5 mmol/L (3.3-5.1); Sodium 140 mmol/L (135-145); Total Protein 6.5 g/dL (6.5-8.0); Triglycerides 152 mg/dL (<150)
== END 2025-04-11 09:24 | disposition home or self-care (01) ==
LOC: HO.HMGCLDS 09:23
PROVIDERS: PCP Nurse Practitioner Family; Visit Provider Nurse Practitioner Family
DX: Z12.5 Encounter for screening for malignant neoplasm of prostate (principal); I10 Essential (primary) hypertension; E55.9 Vitamin D deficiency, unspecified
CPT/HCPCS: 36415; 80053; 80061; 81003; 82306; 84153; 84443; 85025

== ENCOUNTER 2025-04-22 09:07 | Outpatient (AMB) | payer BC, SELFPAY ==
[2025-04-22 09:09] VITALS: BP 120/74; PULSE 75; RESP 16; O2SAT 97; BMI 33.8
--- NOTE | 2025-04-22 09:09 | A.OFFPC_ITS ---
Vital Signs 04/22/25 09:09 Height 5 ft 9 in Weight 229 lb BMI 33.8 BP 120/74 Respiration 16 Pulse 75 Pulse Source Pulse Oximeter Pulse Oximetry (%) 97 Oxygen Delivery Method Room Air Intake Visit Reasons: Annual PE Dip Tube Assembler Machine Required: No Accompanied by: Self / Same As Patient Allergies No Known Allergies (No Known Allergies*) Allergy (Verified 10/28/24 08:06) pollen/seasonal Allergy (Mild, Uncoded 10/28/24 08:06) Unknown Tobacco use date assessed: 04/22/25 Dental Screening Dental Screen Date: 04/22/25 Did you have a dental visit in the last 12 months?: Yes Did you have a dental problem in the last 6 months where you did not have access to dental care?: No Was dental information given to patient?: Patient has dentist HPI Annual PE HPI Details History of Present Illness The patient is a 45 year old male presenting for a physical exam and evaluation of rib pain. He reports that two weeks ago, he developed severe posterior right lower rib pain after painting a large room using a roller on a stick. The pain also radiates to the adjacent left side. He notes the pain increases with inhalation, particularly deep breaths. 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 Health Maintenance - The patient is due for colon screening , and a referral will be placed. Social History Review of Systems - Constitutional: Denies chest pain. - Respiratory: Reports shallow breathing and increased pain with deep inhalation. - Gastrointestinal: Denies constipation or diarrhea. - Musculoskeletal: Reports severe subway guard ior lower rib pain that radiates to the left side. - Psychiatric: Denies suicidal or homici salina ideation. Physical Exam General: Cooperative, healthy appearing, comfortable, no acute distress and well developed, obese Orientation: Patient oriented x3 Limitations: No limitations Head: Normal to inspection Ears: Hearing grossly normal bilaterally, exostosis noted bilat Nose: Normal external nose present Face and sinus: Normal facial exam Eyes: Appearance normal, both eyes and all related structures Neck: Normal visual inspection and Yes full ROM Respiratory: Clear to auscultation bilaterally, discomfort clearly noticed with deep inhalations to lower posterior ribs (R>L) Cardiovascular: Regular rate and rhythm. Normal S1 and S2 GI: Normal to inspection. Soft to palpation and nontender : Singular testicle due to previous orchiectomy, no hernias appreciated Skin: No rashes or lesions noted Neuro: Patient oriented x3 Extremities: Normal to inspection. pain noted with deep palpation of right lower rib (posterior) Results Plan 1. Rib Pain The patient presents with severe posterior lower rib pain radiating to the left, which started two weeks ago after painting. The pain is exacerbated by inhalation. Differential diagnosis includes a disc issue, rib injury, or a slight fracture. Given the increase in pain with deep inhalation, there is concern for pneumonia. The plan is to obtain a rib x-ray and a chest x-ray, with results pending. The patient was given an incentive spirometer to use. He has declined muscle relaxers or prednisone at this time. 2. Colon Cancer Screening The patient is due for a colon screening. A referral for this will be placed. 3. Encounter for general adult medical e xamination with abnormal findings Z00.01 4. pain with inhalation Discussion Notes I explained to the patient that due to his increased pain with deep inhalation, I am concerned about the possibility of pneumonia. Therefore, I will order both a rib and chest x-ray for further evaluation. I have provided him with an incentive spirometer. The patient currently does not wish to take muscle relaxers or prednisone. I also noted that he is due for a colon screening and that I will place the referral. He will contact me or seek medical treatment with any worsening symptoms. NOTE: repeating CMP due to slightly low GFR (most likely related to dehydration) Patient Instructions - Use the incentive spirometry device as instructed. - You will be getting a rib x-ray and a chest x-ray to check for any issues like pneumonia or a rib fracture. - At this time, you have chosen not to t curt any muscle relaxers or prednisone for the pain. - A referral will be placed for your col on cancer screening, as it is now due. [facility] Medical History (Updated 04/22/25 @ 10:00 by KAMRAN Villa) Ear pain, right Retroperitoneal mass Seminoma of left testis H/O splenomegaly Fatty liver Surgical History H/O unilateral orchiectomy Family History Mother No problems noted. 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 Current occupational exposures/hazards: Yes Cognitive needs: No Hearing needs: No Vision needs: No Questionnaire Thrive Questionnaire Date Thrive assessed: 06/17/24 I am a: Patient What is your living situation today?: I have a steady place to live Within the past 12 months, did the food you bought not last and you didn't have the money to get more?: Never true Within the past 12 months, did you worry whether your food would run out before you got money to buy more?: Never true Do you have trouble paying for medicines?: No Do you have trouble getting transportation to medical appointments?: No Do you have trouble paying your heating and electricity bill?: No Do you have trouble taking care of your child, family member or friend?: No Do you have trouble with day-to-day activities such as bathing, preparing meals, shopping, managing finances, etc.?: No Are you currently unemployed and looking for a job?: No Are you interested in more education?: No Please select the resources that you would like help with: None Currently or been in a relationship where the following occur: No concerns reported THRIVE Score: 0 SHIRA-7 AMB Questionnaire SHIRA-7 Date SHIRA - 7 assessed: 12/12/23 Source: Developed by Drs. Theo Reyes, Leticia Banerjee, Trenton Rodas and colleagues, with an educational vannessa from [employer]. Physical exam (Primary Care) Vital Signs: Last Vital Signs Pulse 75 04/22/25 09:09 Resp 16 04/22/25 09:09 BP 120/74 04/22/25 09:09 Pulse Ox 97 04/22/25 09:09 Oxygen Delivery Method Room Air 04/22/25 09:09 BMI result Body Mass Index 33.8 Tobacco/Smoking Status: Tobacco use Status Tobacco use date assessed 04/22/25 04/22/25 09:16 Patient Tobacco Use Status Never used Tobacco 04/22/25 09:12 e-Cigarette/Vaping Use Never Used 04/22/25 09:12 Thrive Assessment: Date of Thrive Assessment Date Thrive assessed 06/17/24 04/22/25 09:12 Currently or been in a relationship where the following occur: No concerns reported Coding Level of Care Code Est Pt Level 3 (97562) Est Pt Prev Care 40-64y(36435) Diagnoses Screening for colon cancer Z12.11 Elevated serum creatinine R79.89 Rib pain R07.81 Obese E66.9 Inspiratory pain R07.1 Fatty liver K76.0 Elevated liver enzymes R74.8 Encounter for routine adult physical exam with abnormal findings Z00. Assessment & Plan Assessment & Plan (1) Screening for colon cancer: Code(s): Z12.11 - Encounter for screening for malignant neoplasm of colon Category: Medical (2) Elevated serum creatinine: Code(s): R79.89 - Other specified abnormal findings of blood chemistry Category: Medical (3) Rib pain: Code(s): R07.81 - Pleurodynia Category: Medical (4) Obese: Code(s): E66.9 - Obesity, unspecified Category: Medical (5) Inspiratory pain: Code(s): R07.1 - Chest pain on breathing Category: Medical (6) Fatty liver: Code(s): K76.0 - Fatty (change of) liver, not elsewhere classified Category: Medical (7) Elevated liver enzymes: Code(s): R74.8 - Abnormal levels of other serum enzymes Category: Medical (8) Encounter for routine adult physical exam with abnormal findings: Code(s): Z00.01 - Encounter for general adult medical examination with abnormal findings Category: Medical Plan . Orders: Orders Comprehensive Met. Panel Today R79.89 - Other specified abnormal findings of blood chemistry XR ribs BI 3V Today R07.81 - Pleurodynia XR chest 2V Today R07.81 - Pleurodynia Referrals Gastroenterology Referral Z12.11 - Encounter for screening for malignant neoplasm of colon
== END 2025-04-22 09:54 | disposition home or self-care (01) ==
LOC: HO.HMCC 09:07
PROVIDERS: PCP Nurse Practitioner Family; Visit Provider Nurse Practitioner Family
DX: Z00.01 Encounter for general adult medical examination with abnormal findings (principal); R07.81 Pleurodynia; R07.1 Chest pain on breathing; E66.9 Obesity, unspecified; Z68.33 Body mass index [BMI] 33.0-33.9, adult; R79.89 Other specified abnormal findings of blood chemistry; Z12.11 Encounter for screening for malignant neoplasm of colon; K76.0 Fatty (change of) liver, not elsewhere classified; R74.8 Abnormal levels of other serum enzymes

== ENCOUNTER 2025-04-22 09:07 | Outpatient (REF) | payer BC, SELFPAY ==
--- NOTE | ~2025-04-22 | XR_ITS ---
EXAMINATION: XR RIBS, BILATERAL CLINICAL INFORMATION: R07.81 - Pleurodynia COMPARISON: July 27, 2023 TECHNIQUE: PA chest and 3 views of the bilateral ribs were obtained. FINDINGS: Lungs are clear without pneumothorax. Heart size is within normal limits. A BB sized fiducial marker projects over the lower right ribs. No fracture line, cortical step-off, or acute deformity is identified. There is fusiform thickening of the posterior left 10th and 11th ribs likely related to healed fractures. XR/XR ribs BI 3V IMPRESSION: No acute fracture is demonstrated. Electronically signed by: Ramon Marlow MD 04/22/2025 11:10 AM [facility]
--- NOTE | ~2025-04-22 | XR_ITS ---
EXAMINATION: XR CHEST 2 VIEWS HISTORY: R07.81 - Pleurodynia COMPARISON: Comparison is made with the prior examination dated 07/27/2023. FINDINGS: PA and lateral views of the chest are submitted. The lungs are expanded and clear. There is no pleural effusion, pneumothorax, or pulmonary vascular congestion. The heart is normal in size. There is mild degenerative disc disease of the spine. XR/XR chest 2V IMPRESSION: No acute cardiopulmonary abnormality. Electronically signed by: Theo Yousif MD 04/22/2025 11:03 AM [facility]
== END 2025-04-22 09:08 | disposition home or self-care (01) ==
LOC: HO.HMGCX 09:07
PROVIDERS: PCP Nurse Practitioner Family; Visit Provider Nurse Practitioner Family
DX: Z12.5 Encounter for screening for malignant neoplasm of prostate (principal); Z12.11 Encounter for screening for malignant neoplasm of colon; R07.81 Pleurodynia; R79.89 Other specified abnormal findings of blood chemistry; E66.9 Obesity, unspecified; R07.1 Chest pain on breathing; R74.8 Abnormal levels of other serum enzymes; K76.0 Fatty (change of) liver, not elsewhere classified; Z68.33 Body mass index [BMI] 33.0-33.9, adult
CPT/HCPCS: 71046; 71110

== ENCOUNTER → 2025-04-22 09:59 | Outpatient (BNV) | payer BC, SELFPAY | PROVIDERS: PCP Nurse Practitioner Family; Visit Provider Radiology Diagnostic Radiology | DX: R07.81 Pleurodynia (principal) | CPT/HCPCS: 71046; 71110 ==

== ENCOUNTER 2025-05-01 19:10 | Emergency (ER) | payer BC, SELFPAY ==
--- OUTSIDE RECORDS SUMMARY | 2019-12-16 15:55 | XMS_ITS | Encounter Summary ---
Author Organization [facility] Address [address] [facility] [address] [place] [address] Phone Care Team Providers Care High [employer] Computer Science Teacher Name Role Phone Milton Schaefer EMERGENCY ROOM TECH Primary Care Provider + Encounter Details Date Type Department Care Team (Late st Contact Info) Description 12/16/2019 4:55 PM EDT Hospital Encounter [facility] [address] [place] [address] Flower Cullen CNP [address] [place] [address] [email or web address] Social History Tobacco Use Types Packs/Day Years Used Date Smoking Tobacco: Never Smokeless Tobacco: Never Education Answer Date Recorded Are you interested in more education? Not on marina e 09/09/2022 Are you concerned about learning? Not on file 09/09/2022 No 09/09/2022 No 09/09/2022 Digital Access Answer Date Recorded No 10/08/2022 No 10/08/2022 No 10/08/2022 Reliable internet access at home? Not on file 10/08/2022 Device with a working camera? Not on file Sex and Gender Information Value Date Recorded Sex Assigned at Not on file Legal Sex Male 9:20 AM EDT Gender Identity Not on file Sexual Orientation Not on file documented as of this encounter Plan of Treatment Not on file documented as of this encounter Procedures Procedure Name Priority Date/Time Associated Diagnosis Comments XR FOOT 3 OR MORE VIEWS (RIGHT) Urgent/patient waiting 12/16/2019 4:59 PM EDT Pain and swelling of toe, right documented in this encounter Results * XR FOOT 3 OR MORE VIEWS (RIGHT) (12/16/2019 4:59 PM EDT) Anatomical Region Laterality Modality Foot Right Radiographic Anila ging 12/16/2019 5:01 PM EDT Impressions 12/16/2019 5:02 PM EDT No fracture or other source of the symptoms around the second toe identified. Narrative 12/16/2019 5:02 PM EDT Right foot 3 views. No prior. No fracture or malalignment is detected. No bony lesion. No erosion or marked joint space loss. Traction spurring at the Achilles insertion. Procedure Note Raji Henriquez MD - 12/16/2019 Right foot 3 views. No prior. No fracture or malalignment is detected. Nobony lesion. No erosion or marked joint space loss. Traction spurring atthe Achilles insertion. IMPRESSION: No fracture or other source of the symptoms around the second toeidentified. Flower Cullen DIRECTOR CORRECTIONAL AGENCY IMG XR LOWER EXTREMITY Janeth l Result documented in this encounter Visit Diagnoses Not on filedocumented in this encounter Additional Health Concerns Infection Onset Date Last Indicated Resolved Time CoV-Risk 09/06/2021 09/06/2021 09/17/2021 1:23 AM EDT documented as of this encounter Care Teams High [employer] Computer Science Teacher Relationship Specialty Start Date End Date Milton Schaefer NP [facility] [place] [address] PCP - General Family Medicine 08/15/17 09/05/21 documented as of this encounter Additional Source Comments The information contained in this document represents components of the legal health record. It is not the complete legal health record.[facility]
--- OUTSIDE RECORDS SUMMARY | 2021-09-06 17:44 | XMS_ITS | Encounter Summary ---
Author Organization [facility] Address [address] [place] [id number] Phone Care Team Providers Care Compliance Director Name Role Phone Milton Schaefer LEAD RECREATION ASSISTANT Primary Care Provider + Encounter Details Date Type Department Care Team (Late st Contact Info) Description 09/06/2021 6:44 PM EDT Hospital Encounter [facility] [address] [place] [phone] Flower Cullen CNP [address] [place] [address] [email or web address] Social History Tobacco Use Types Packs/Day Years [...] spine. IMPRESSION: No acute process. Flower Cullen EMAIL CAMPAIGN MANAGER IMG XR CHEST Final Resul t documented in this encounter Visit Diagnoses Not on filedocumented in this encounter Additional Health Concerns Infection Onset Date Last Indicated Resolved Time CoV-Risk 09/06/2021 09/06/2021 09/17/2021 1:23 AM EDT documented as of this encounter Care Teams Compliance Director Relationship Specialty Start Date End Date Milton Schaefer NP [address] [place] [address] PCP - General Family Medicine 09/06/21 documented as of this encounter Additional Source Comments The information contained in this document represents components of the legal health record. It is not the complete legal health record.[facility]
--- OUTSIDE RECORDS SUMMARY | 2024-02-29 08:05 | XMS_ITS | Encounter Summary ---
Author Organization [facility] Address [address] [place] [address] Care Team Providers Care Pedigree Researcher Name Role Phone KariMilton allison Nick BERMUDEZ Primary Care Provider Encounter Details Date Type Department Care Team ([facility] st Contact Info) Description 02/29/2024 9:05 AM EDT Hospital Encounter TH HISTORIC ENCOUNTERS EASTERN CONVERSION ONLY Paola Hassan MD [address] [place] [phone] Social History Tobacco Use Types Packs/Day Years [...] of BEP followed by left orchiectomy at [facility], patient has been on surveillance (please see [...] man, who presented to emergency room of [facility] in July 2017, with2-3 weeks off worsening [...] recurrence or progression _Patient is scant at [facility] in early 2019 were unremarkable, patient's tumor marker AFP on 11/08/2019 was only 4.9 _Patient follow-up CT scan on 03/06/2020 showed interval decrease in left-sided abdominal retroperitoneal lymphadenopathy but it was done in [facility] compared with previous scan of pretreatmentscan of [...] underwent left orchiectomy in December 2017 in [facility], patient has been on surveillance, never had [...] on filedocumented in this encounter Care Teams Pedigree Researcher Relationship Specialty Start Date End Date Milton Schaefer NP [address] [place], [place] PCP - General Family Medicine 09/07/17 documented as of this encounter
--- NOTE | ~2025-05-01 | XR_ITS ---
CLINICAL HISTORY: sob 1 view chest x-ray Comparison: CR/SR - XR CHEST 2 VIEWS - 04/22/25 10:03 EST Findings: No consolidation or effusion. Normal size heart. No acute fracture. IMPRESSION: 1. No acute findings. This document has been electronically signed by: Christine Bucio MD on 05/02/2025 01:15:03
--- NOTE | ~2025-05-01 | CT_ITS ---
CLINICAL HISTORY: epigastric pain CT abdomen and pelvis with contrast Comparison: None Findings: LIMITED CHEST: See separate CT chest. LIVER: Hepatic steatosis. BILIARY: No gallbladder wall thickening, radiopaque stone, or ductal dilatation. PANCREAS: No mass or ductal dilatation. SPLEEN: No splenomegaly. KIDNEYS: No hydronephrosis or radiopaque stone. Contrast excretion in the collecting systems. ADRENALS: No nodule. VASCULAR: No aneurysm. RETROPERITONEUM: No lymphadenopathy or mass. BOWEL/MESENTERY: No evidence of obstruction. No free fluid or air. Normal appendix. Multiple loops of fluid-filled small bowel. ABDOMINAL WALL: No mass or significant abnormality. URINARY BLADDER: No focal wall thickening. PELVIC NODES: No pelvic lymphadenopathy. PELVIC ORGANS: Normal for age. Trace fluid in the pelvis. BONES: No acute fracture. OTHER: Negative. IMPRESSION: Multiple loops of fluid-filled small bowel, may represent enteritis in the appropriate clinical setting. Hepatic steatosis. This document has been electronically signed by: Christine Bucio MD on 05/02/2025 01:57:48
--- NOTE | ~2025-05-01 | US_ITS ---
EXAMINATION: US ABDOMEN LIMITED CLINICAL INFORMATION: Abdominal pain.. COMPARISON: February 02, 2023. TECHNIQUE: Real-time ultrasound of the gallbladder using grayscale technique. FINDINGS: Gallbladder is fluid-filled without distention. No intraluminal abnormality. No pericholecystic fluid collection or gallbladder wall thickening. Common bile duct measures 5 mm. Liver has increased echotexture. US/US abdomen limited IMPRESSION: No cholelithiasis or choledocholithiasis. Probable hepatic steatosis. Electronically signed by: Malik King MD 05/02/2025 08:44 AM EST
--- NOTE | ~2025-05-01 | CT_ITS ---
CLINICAL HISTORY: sob cough CT angiography chest with contrast. 3D Postprocessing. Comparison: None provided Findings: NECK BASE: Limited views of the thyroid are unremarkable. LUNGS/PLEURA: No focal consolidation. PULM VASCULAR: No pulmonary embolism. MEDIASTINUM: No masses or lymphadenopathy. CARDIAC: No pericardial effusion. No cardiomegaly. AORTA: No aneurysm. CHEST WALL: No masses or axillary lymphadenopathy. LIMITED ABDOMEN: See separate CT abdomen and pelvis. BONES: No acute fracture. IMPRESSION: 1. No pulmonary emboli. This document has been electronically signed by: Christine Bucio MD on 05/02/2025 01:50:46
[2025-05-01 20:01] VITALS: BP 141/77; PULSE 109; RESP 20; TEMP 37.3; O2SAT 98; BMI 34.0
[2025-05-01 21:20] LABS: Alanine Aminotransferase 434 U/L (0-40); Albumin Level 4.1 g/dL (3.5-5.0); Alkaline Phosphatase 134 U/L (39-117); Anion Gap 12 (12-20); Aspartate Amino Transferase 335 U/L (5-37); Blood Urea Nitrogen 18 mg/dL (9-16); Calcium 8.8 mg/dL (8.4-10.2); Carbon Dioxide 28 mmol/L (22-29); Chloride 101 mmol/L (96-108); Creatinine Clr Calc Pharmacy 97.3; Estimated Glomerular Filt Rate > 60; Potassium 4.0 mmol/L (3.3-5.1); Sodium 137 mmol/L (135-145); Total Protein 6.2 g/dL (6.5-8.0)
[2025-05-01 21:37] LABS: Hematocrit 47.2 % (42.0-52.0); Hemoglobin 16.2 g/dl (14.0-18.0); Imm Gran Abs Auto 0.03 X10*3/uL (0.00-0.03); Imm Gran Pct Auto 0.9 % (0.0-0.4); Lymphocytes Absolute Auto 1.3 X10*3/uL (1.2-4.9); MANUAL DIFF FLAG SCAN; Mean Corpuscular HGB Conc 34.3 g/dl (31.0-36.0); Mean Corpuscular Hemoglobin 29.7 pg (27.0-33.0); Mean Corpuscular Volume 86.4 fL (80.0-98.0); NRBC Abs Auto 0.000 X10*3/uL (0.0-0.012); NRBC Pct Auto 0.0 /100WBC (0.0-0.2); Red Blood Count 5.46 X10*6/uL (4.60-5.80); SCAN SMEAR FLAG 1; White Blood Count 3.4 X10*3/uL (4.8-10.8)
[2025-05-01 22:01] LABS: Resp Syncy Virus RNA Qual PCR NEGATIVE (Negative); SARS COV2 PCR INHOUSE NEGATIVE (Negative)
[2025-05-01 22:37] LABS: Platelet Count 96 X10*3/uL (160-400)
[2025-05-01 23:36] VITALS: BP 133/79; PULSE 107; RESP 14; TEMP 36.9; O2SAT 97
[2025-05-02] VITALS (8 sets, daily range): BP systolic 108–151; BP diastolic 69–91; PULSE 101–113; RESP 11–18; TEMP -17.7–37.7; O2SAT 94–96
[2025-05-02 00:07] LABS: Appearance Urine Cloudy; Glucose Urine UA Negative (Negative); PH 6.0 (5.0-9.0); Specific Gravity - Urine >= 1.030 (1.005-1.025); UMIC TRIGGER UACC YES
--- NOTE | 2025-05-02 00:38 | ED_ITS ---
HPI - General Adult General Chief complaint: General Medical Stated complaint: Flu symptoms Time Seen by Provider: 05/01/25 23:29 History of Present Illness HPI narrative: Nose the patient is a 45-year-old male presents today with having urine that was exceptionally dogs. Generalized malaise fever chills coughing body ache. Denies any neck pain. Have some abdominal pain mostly over the epigastric area there is no appetite over the last week. Trying to take in fluids much as he can. There has been sick contact in the family. There is no change in bowel movement. No diaphoresis. Related Data Home Medications ?Medication ?Instructions ?Recorded ?Confirmed cetirizine 10 mg tablet (Zyrtec) 10 mg PO DAILY PRN 03/04/24 multivitamin 1 tab PO DAILY 07/08/2102/13 cholecalciferol (vitamin D3) 25 25 mcg PO DAILY 03/04/24 mcg (1,000 unit) capsule CPAP (CPAP Machine/Device) 07/27/23 03/04/24 Previous Rx's ?Medication ?Instructions ?Recorded zolpidem 6.25 mg tablet,extended 6.25 mg PO BEDTIME AR N sleep 30 01/18/22 release,multiphase days #30 tabs levothyroxine 25 mcg tablet 25 mcg PO DAILY #90 tabs 0 10/08/24 hydrochlorothiazide 12.5 mg tablet 12.5 mg PO DAILY #9 0 tabs 02/21/25 omeprazole 40 mg capsule,delayed 40 mg PO DAILY #90 ca ps 04/04/25 release prednisone 50 mg tablet 50 mg PO DAILY 6 days #6 tab s 04/22/25 azithromycin 250 mg tablet See Rx Instructions PO .COM PLEX 05/02/25 upper resp infection #6 tabs ibuprofen 400 mg tablet 400 mg PO Q6H PRN pain #20 t abs 05/02/25 Allergies Allergy/AdvReac Type Severity Reaction Status Date / Time No Known Allergies (No Known Allergy Verified 05/01/25 20:04 Allergies*) pollen/seasonal Allergy Mild Unknown Uncoded 05/01/25 20:04 Review of Systems 2 Review of Systems: Positive abdominal pain, positive coughing congestion upper respiratory symptoms. Positive fever Yes all other systems are reviewed and are negative PMFSH Past Medical History Attestation statement: The following information was validated with the patient. Medical History Ear pain, right Retroperitoneal mass Seminoma of left testis H/O splenomegaly Fatty liver Surgical History H/O unilateral orchiectomy Family History Family History Mother No problems noted. 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 Oriented X3. No acute distress. Eyes: Pupils equal, round and reactive to light. ENT: Pharynx normal. Neck: Normal inspection. Neck supple. No lymph nodes noted. No crepitus CVS: Normal heart rate and rhythm. Pulses normal. Normal S1 and S2 Respiratory: No respiratory distress. Breath sounds normal. No Wheezing. No rales Abdomen: Soft and nontender. No rigidity. No distention. good BS x4 Skin: Skin warm and dry. Normal skin color. Normal skin turgor. Extremities: No lower extremity edema. Neurovascular intact to all extremities. No Lacerations. No Rash Neuro: Oriented X 3. No motor deficit. No sensory deficit. Moving all extermities. No slurred speech Vital Signs: Vital Signs - 24 hr 05/01/25 20:01 05/01/25 23:36 05/02/25 01:37 Temperature 99.1 F 98.4 F Pulse Rate 109 H 107 H 107 H Respiratory Rate 20 14 14 Blood Pressure 141/77 H 133/79 Pulse Oximetry 98 97 Oxygen Delivery Method Room Air Room Air 05/02/25 02:07 05/02/25 04:10 05/02/25 05:58 Temperature 99.9 F 99.1 F 99.9 F Pulse Rate 101 H 102 H 109 H Respiratory Rate 16 14 15 Blood Pressure 143/77 H 138/78 127/85 Pulse Oximetry 94 96 94 Oxygen Delivery Method Room Air Room Air Room Air 05/02/25 06:01 05/02/25 09:13 05/02/25 10:59 Temperature 97.7 F 99.2 F Pulse Rate 103 H 107 H 113 H Respiratory Rate 11 L 16 18 Blood Pressure 108/69 151/90 H 142/91 H Pulse Oximetry 95 94 95 Oxygen Delivery Method Room Air Room Air Room Air BMI result Body Mass Index 34.0 Course Reevaluation(s) Reevaluation #1: 7:04 AM 05/02/2025 (Dr. Gee Howell): I, Dr. Howell have take over the care of this patient, I reviewed pertinent blood work and imaging, re-evaluated the patient when appropriate. Presented with new LFTs, CT abdomen and pelvis negative, pending ultrasound, repeat labs as per GI request, and liver panel workup Reevaluation #2: 10:10 AM 05/02/2025 (Dr. Gee Howell): Texted Dr. Perry, to update her of patient's repeat workup 11:21 AM 05/02/2025 (Dr. Gee Howell): GI recommends follow up with the PCP next week with a repeat LFTs in if they have not normalized PCP can refer patient to GI Medications Administered Discontinued Medications Generic Name Dose Route Start Last Admin Trade Name Freq PRN Reason Stop Dose Admin Calcium Carbonate 750 mg 05/02/25 04:28 05/02/25 04:33 Calcium Carbonate 750 Mg Tab.Chew PO 05/02/25 04:29 750 mg ONCE ONE Administration Sodium Chloride 1,000 mls @ 999 mls/hr 05/02/25 00:30 05/02/25 02:07 Ns IV 05/02/25 01:30 Infused .Q1H1M GREG Infusion Sodium Chloride 1,000 mls @ 999 mls/hr 05/02/25 00:30 05/02/25 02:07 Ns IV 05/02/25 01:30 Infused .Q1H1M GREG Infusion Sodium Chloride 1,000 mls @ 999 mls/hr 05/02/25 03:00 05/02/25 04:09 Ns IV 05/02/25 04:00 Infused .Q1H1M GREG Infusion Iohexol 85 ml 05/02/25 00:55 05/02/25 00:55 Iohexol 350 Mg/Ml 100 Ml Infus..Btl IV 05/02/25 00:56 85 ml ONCE ONE Administration Ketorolac Tromethamine 15 mg 05/02/25 00:30 05/02/25 00:41 Ketorolac Tromethamine 15 Mg/Ml Vial IVPUSH 05/02/25 00:31 15 mg ONCE ONE Administration Ketorolac Tromethamine 15 mg 05/02/25 07:37 05/02/25 07:46 Ketorolac Tromethamine 15 Mg/Ml Vial IM 05/02/25 07:38 15 mg ONCE ONE Administration Ondansetron HCl 4 mg 05/02/25 02:50 05/02/25 03:01 Ondansetron Hcl 4 Mg/2 Ml Vial IVPUSH 05/02/25 02:51 4 mg ONCE ONE Administration Medical Decision Making Medical Decision Making MDM Narrative: patient is 45 years old presents today with having skills coughing congestion upper respiratory symptoms generalized malaise nausea times. Not feeling well. It labs on patient's white count was 3.4. electrolytes shows a normal BUN and creatinine. LFTs were somewhat elevated. Patient's bilirubin was 1.1. AST ALT were both elevated at 335 and 434 alk-phos is 134 question parenchymal liver disease. This finding was discussed with GI. Wants an ultrasound of the right upper quadrant to look for gallstones. Wants repeat LFTs in a.m. Patient's has lots of coughing upper respiratory symptoms. Chest x-ray was grossly negative. CTA of the chest was negative for PE. No pneumonia no pneumothorax. patient's case discussed with Dr. Perry. Ultrasound to be done in a.m.. LFT to be done in a.m. Tylenol level and Monospot tests are still pending. Patient in no distress. Please consult Dr. Perry after the everything comes back. I received sign-out from my colleague Dr. Love. - in the morning, patient will need repeat labs, specifically LFTs. And will need an ultrasound. After the ultrasound is done, please touch base with Dr. Perry to determine whether the patient needs to be admitted or Discharged home - patient's vitals remained stable, no issues overnight -sign out given to my colleage Dr. Howell Differential Diagnosis Differential Diagnoses: The differential diagnosis associated with the presentation includes Admission/Observation Consideration of admission/observation: Escalation of care including admission/observation considered Consult Healthcare Provider Management of the patient was discussed with: Processor Grain (gi) Lab Data MDM Lab Attestation statement: I reviewed the patient's lab results. 05/01/25 20:59 05/02/25 09:22 Labs: Lab Results 05/01/25 05/01/25 05/01/25 Range/Units 20:57 20:59 23:59 WBC 3.4 L (4.8-10.8) X10*3/uL RBC 5.46 (4.60-5.80) X10*6/uL Hgb 16.2 (14.0-18.0) g/dl Hct 47.2 (42.0-52.0) % MCV 86.4 (80.0-98.0) fL MCH 29.7 (27.0-33.0) pg MCHC 34.3 (31.0-36.0) g/dl RDW 12.5 (11.0-16.0) % Plt Count 96 L D (160-400) X10*3/uL MPV 9.8 (9.4-12.4) fL Immature Gran % (Auto) 0.9 H (0.0-0.4) % Neut % (Auto) 48.5 (45-73) % Lymph % (Auto) 39.6 (20-40) % [place] % (Auto) 8.0 (2-11) % Eos % (Auto) 2.4 (0-4) % Baso % (Auto) 0.6 (0-2) % Lymph # (Auto) 1.3 (1.2-4.9) X10*3/uL [place] # (Auto) 0.3 (0.1-1.2) X10*3/uL Eos # (Auto) 0.1 (0.0-0.4) X10*3/uL Baso # (Auto) 0.0 (0.0-0.2) X10*3/uL Abs Immat Gran (auto) 0.03 (0.00-0.03) X10*3/uL Absolute Neuts (auto) 1.6 L (2.0-8.3) x10*3/uL Absolute Nucleated RBC 0.000 (0.0-0.012) X10*3/uL Nucleated RBC % (auto) 0.0 (0.0-0.2) /100WBC Smear Tech's Comments VERIFIED PT (11.2-13.5) SEC INR (0.9-1.1) Sodium 137 (135-145) mmol/L Potassium 4.0 (3.3-5.1) mmol/L Chloride 101 (96-108) mmol/L Carbon Dioxide 28 (22-29) mmol/L Anion Gap 12 (12-20) BUN 18 H (9-16) mg/dL Creatinine 1.14 (0.5-1.4) mg/dL Estim Creat Clear Calc 97.3 Estimated GFR > 60 Random Glucose 105 (60-115) mg/dL Calcium 8.8 D (8.4-10.2) mg/dL Total Bilirubin 1.1 H (0.0-1.0) mg/dL Direct Bilirubin (0.0-0.5) mg/dL AST 335 H (5-37) U/L ALT 434 H (0-40) U/L Alkaline Phosphatase 134 H (39-117) U/L Total Protein 6.2 L (6.5-8.0) g/dL Albumin 4.1 (3.5-5.0) g/dL Urine Color Dark Yellow Urine Appearance Cloudy Urine pH 6.0 (5.0-9.0) Ur Specific [place] >= 1.030 H (1.005-1.025) Urine Protein 100 (2+) H (Neg-Trace) mg/dL Urine Glucose (UA) Negative (Negative) mg/dL Urine Ketones Trace (Negative) mg/dL Urine Blood Negative (Negative) Urine Nitrite Negative (Negative) Ur Leukocyte Esterase Trace H (Negative) Urine RBC 0-2 (0-2) /HPF Urine WBC 0-5 (0-5) /HPF Ur Squamous Epith Cells 0-2 (0-2) /HPF Urine Bacteria None Seen (None Seen) Hyaline Casts 0-2 (0-2) /LPF Acetaminophen (<30) mcg/mL Hepatitis A IgM Ab (Nonreactive) Hep Bs Antigen (Negative) Hep Bs Antibody (Nonreactive) Hep B Core Total Ab (Nonreactive) Hepatitis C Ab (EIA) (Nonreactive) Monoscreen (Negative) Influenza Type A (PCR) NEGATIVE (Negative) Influenza Type B (PCR) NEGATIVE (Negative) RSV RNA Qual (PCR) NEGATIVE (Negative) SARS-CoV-2 RNA (RT-PCR) NEGATIVE (Negative) 05/02/25 05/02/25 Range/Units 02:14 09:22 WBC (4.8-10.8) X10*3/uL RBC (4.60-5.80) X10*6/uL Hgb (14.0-18.0) g/dl Hct (42.0-52.0) % MCV (80.0-98.0) fL MCH (27.0-33.0) pg MCHC (31.0-36.0) g/dl RDW (11.0-16.0) % Plt Count (160-400) X10*3/uL MPV (9.4-12.4) fL Immature Gran % (Auto) (0.0-0.4) % Neut % (Auto) (45-73) % Lymph % (Auto) (20-40) % [place] % (Auto) (2-11) % Eos % (Auto) (0-4) % Baso % (Auto) (0-2) % Lymph # (Auto) (1.2-4.9) X10*3/uL [place] # (Auto) (0.1-1.2) X10*3/uL Eos # (Auto) (0.0-0.4) X10*3/uL Baso # (Auto) (0.0-0.2) X10*3/uL Abs Immat Gran (auto) (0.00-0.03) X10*3/uL Absolute Neuts (auto) (2.0-8.3) x10*3/uL Absolute Nucleated RBC (0.0-0.012) X10*3/uL Nucleated RBC % (auto) (0.0-0.2) /100WBC Smear Tech's Comments PT 13.4 (11.2-13.5) SEC INR 1.1 (0.9-1.1) Sodium 136 (135-145) mmol/L Potassium 4.0 (3.3-5.1) mmol/L Chloride 104 (96-108) mmol/L Carbon Dioxide 25 (22-29) mmol/L Anion Gap 11 L (12-20) BUN 15 (9-16) mg/dL Creatinine 1.08 (0.5-1.4) mg/dL Estim Creat Clear Calc 102.8 Estimated GFR > 60 Random Glucose 86 (60-115) mg/dL Calcium 8.4 (8.4-10.2) mg/dL Total Bilirubin 1.0 (0.0-1.0) mg/dL Direct Bilirubin 0.5 (0.0-0.5) mg/dL AST 280 H (5-37) U/L ALT 412 H (0-40) U/L Alkaline Phosphatase 128 H (39-117) U/L Total Protein 5.3 L (6.5-8.0) g/dL Albumin 3.4 L (3.5-5.0) g/dL Urine Color Urine Appearance Urine pH (5.0-9.0) Ur Specific [place] (1.005-1.025) Urine Protein (Neg-Trace) mg/dL Urine Glucose (UA) (Negative) mg/dL Urine Ketones (Negative) mg/dL Urine Blood (Negative) Urine Nitrite (Negative) Ur Leukocyte Esterase (Negative) Urine RBC (0-2) /HPF Urine WBC (0-5) /HPF Ur Squamous Epith Cells (0-2) /HPF Urine Bacteria (None Seen) Hyaline Casts (0-2) /LPF Acetaminophen 4 (<30) mcg/mL Hepatitis A IgM Ab Nonreactive (Nonreactive) Hep Bs Antigen Negative (Negative) Hep Bs Antibody NONREACTIVE (Nonreactive) Hep B Core Total Ab Nonreactive (Nonreactive) Hepatitis C Ab (EIA) Nonreactive (Nonreactive) Monoscreen Negative (Negative) Influenza Type A (PCR) (Negative) Influenza Type B (PCR) (Negative) RSV RNA Qual (PCR) (Negative) SARS-CoV-2 RNA (RT-PCR) (Negative) Independent Interpretation I performed an independent interpretation of an: CT Scan ( CTA negative) Interpretation: US/US abdomen limited IMPRESSION: No cholelithiasis or choledocholithiasis. Probable hepatic steatosis. Radiology Impression Discussion of test interpretation with radiology: I have reviewed the radiologist's reading. Discharge Plan Discharge Clinical Impression: Upper respiratory disease, Elevated LFTs Patient Disposition: Home, Self-Care Instructions: Upper Respiratory Infection (DC), Transaminitis (ED) Additional Instructions: Evaluated with elevation of liver enzymes, you have had full workup CAT scan ultrasound repeat blood work, some of the studies are still pending such as hepatitis panel if it comes back positive you will get a phone call, your care has been discussed with the Gastroenterology, please call your PCP I am referring you there as well to be re-evaluated in 1 week for repeat blood work if the blood work still abnormal to refer you to GI, avoid Tylenol for any symptoms until cleared by either PCP or GI at this time Avoid alcohol Prescriptions: New azithromycin 250 mg tablet See Rx Instructions .ROUTE .COMPLEX Qty: 6 0RF Rx Instructions: take 500 mg today (day 1), then 250 mg for 4 days (days 2-5) ibuprofen 400 mg tablet 400 mg PO Q6H PRN (Reason: pain) Qty: 20 0RF No Action levothyroxine 25 mcg tablet 25 mcg PO DAILY Qty: 90 1RF hydrochlorothiazide 12.5 mg tablet 12.5 mg PO DAILY Qty: 90 1RF omeprazole 40 mg capsule,delayed release(DR/EC) 40 mg PO DAILY Qty: 90 1RF prednisone 50 mg tablet 50 mg PO DAILY 6 Days Qty: 6 0RF zolpidem 6.25 mg tablet,ext release multiphase 6.25 mg PO BEDTIME PRN (Reason: sleep) 30 Days Qty: 30 2RF (DME) CPAP Machine/Device Device See Rx Instructions .Route Rx Instructions: As directed cetirizine [Zyrtec] 10 mg tablet 10 mg PO DAILY PRN multivitamin Tablet 1 tab PO DAILY cholecalciferol (vitamin D3) 25 mcg (1,000 unit) capsule 25 mcg PO DAILY Referrals: Milton Schaefer, TURKEY PICKER-BC [Primary Care Provider, Internal Medicine] - 1 week Referral Note: Patient presented with the elevated LFTs, GI we would like to have LFTs repeated in 1 week if they have normalized please refer to GI Clinical Impression: Elevated LFTs Leny Perry MD [Physician, Gastroenterology] - 05/06/25 Physician,Unknown J [Physician, Medical] - 05/05/25 Print Language: Indonesian
[2025-05-02] MEDS: iohexoL 350 MG/ML 100 ML INFUS..BTL 85 ML IV (00:55)
[2025-05-02 03:13] LABS: Acetaminophen LAB 4 mcg/mL (<30)
--- OUTSIDE RECORDS SUMMARY | 2025-05-02 03:13 | XMS_ITS | Clinical Summary ---
Author Organization [facility] Prior to 10/12/24 Address [address] [place] [address] Care Team Providers Care Flaking Roll Operator Name Role Phone Milton Schaefer Primary Care Provider [phone] Allergies No known active allergies Medications Medication [...] age to complete this topic Care Teams Flaking Roll Operator Relationship Specialty Start Date End Date Milton Schaefer [address] [place] [address] PCP - General Family Medicine 09/07/17
--- OUTSIDE RECORDS SUMMARY | 2025-05-02 03:13 | XMS_ITS | Encounter Summary ---
Author Organization [facility] Address [address] [place] [phone] Phone Care Team Providers Care Air Brake Worker Name Role Phone Milton Schaefer ULTRASONIC SEAMING MACHINE OPERATOR Primary Care Provider + Milton Schaefer ULTRASONIC SEAMING MACHINE OPERATOR Primary Care Provider + Encounter Details Date Type Department Care Team (Late st Contact Info) Description 11/13/2017 Procedure Pass [facility] Periop [address] [place] [address] Social History Tobacco Use Types Packs/Day Years [...] documented as of this encounter Care Teams Air Brake Worker Relationship Specialty Start Date End Date Milton Schaefer, LARA [address] [place] [address] PCP - General Family Medicine 08/15/17 09/05/21 Milton Schaefer NP [address] [place] [address] PCP - General Family Medicine 09/06/21 documented as of this encounter Additional Source Comments The information contained in this document represents components of the legal health record. It is not the complete legal health record.[facility]
--- OUTSIDE RECORDS SUMMARY | 2025-05-02 03:13 | XMS_ITS | Clinical Summary ---
Author Organization [facility] Address [address] [facility] [address] [place] [phone] Phone Care Team Providers Care Textile Conversion Manager Name Role Phone Milton Schaefer PLUMBER Primary Care Provider + Allergies No known [...] (12/16/2019): Added automatically from request for surgery [id number] Immunizations No known immunizations Social History Tobacco [...] topic Medical Devices Not on file [place] [address] [place] [address] HMO [facility] PPO [address] [place], [place] [address]O [facility] PPO [place] [address] [place], [place] [address]O Member Subscriber Plan / Payer (Ef fective 2016-Present) Name:Wendy Doll Relation to Subscriber:Self Name:WENDY DOLL Payer ID:Not on file Type:[facility] Address: [address] [place] [place] [address] HMO Member Subscriber Plan / Payer (Ef fective 2016-Present) Name:Wendy Doll Relation to Subscriber:Self Name:WENDY DLOL Payer ID:Not on file Type:O Address: [address] [place] [place] [address] HMO Member Subscriber Plan / Payer (Ef fective 2016-Present) Name:Wendy Doll Relation to Subscriber:Self Name:WENDY DOLL Payer ID:Not on file Type:O Address: [address] PPO EPO HMO [facility] PPO EPO Member Subscriber Plan / Payer (Ef fective 2016-Present) Name:Wendy Doll Relation to Subscriber:Self Name:WENDY DOLL Payer ID:Not on file Type:O Address: [address] PPO EPO Member Subscriber Plan / Payer (Ef fective 2016-Present) Name:Wendy Doll Relation to Subscriber:Self Name:WENDY DOLL Payer ID:Not on file Type:HMO Address: [place] [id number] [facility] PPO EPO [facility] HMO PPO EPO Care Teams Textile Conversion Manager Relationship Specialty Start Date End Date Milton Schaefer NP [address] [place] [address] PCP - General Family Medicine 09/06/21 Additional Source Comments The information contained in this document represents components of the legal health record. It is not the complete legal health record.[facility]
--- OUTSIDE RECORDS SUMMARY | 2025-05-02 03:13 | XMS_ITS | Encounter Summary ---
Author Organization [facility] Address [address] [facility] [address] [place] [address] Phone Care Team Providers Care Tax Collection Coordinator Name Role Phone Milton Schaefer PROCESS CONTROL PROGRAMMER Primary Care Provider + Milton Schaefer PROCESS CONTROL PROGRAMMER Primary Care Provider + Encounter Details Date Type Department Care Team (Late st Contact Info) Description 09/01/2017 Procedure Pass [facility] [address] [place] [address] Social History Tobacco Use Types Packs/Day Years [...] documented as of this encounter Care Teams Tax Collection Coordinator Relationship Specialty Start Date End Date Milton Schaefer NP [address] [place] [address] PCP - General Family Medicine 08/15/17 09/05/21 Milton Schaefer NP [address] [place] [address] PCP - General Family Medicine 09/06/21 documented as of this encounter Additional Source Comments The information contained in this document represents components of the legal health record. It is not the complete legal health record.[facility]
--- OUTSIDE RECORDS SUMMARY | 2025-05-02 03:13 | XMS_ITS | Clinical Summary ---
Author Organization [facility][1] [place] [address] Phone Care Team Providers Care Exhibitions Curator Name Role Phone Milton Schaefer NP Primary [...] Screening 04/22/2022 Depression Screening 05/15/2024 COVID-19 Vaccine (1 - 2024-2 6 season) 2025 Influenza Vaccine [...] age to complete this topic Care Teams Exhibitions Curator Relationship Specialty Start Date End Date Milton Schaefer NP [address] [facility] [address] PCP - General Family Medicine 09/07/17
--- OUTSIDE RECORDS SUMMARY | 2025-05-02 03:13 | XMS_ITS | Encounter Summary ---
Author Organization [facility] Address [address] [facility] [address] [place] [phone] Phone Care Team Providers Care Manager Testing Name Role Phone Milton Schaefer FISHING BOAT MATE Primary Care Provider + Milton Schaefer FISHING BOAT MATE Primary Care Provider + Encounter Details Date Type Department Care Team (Late st Contact Info) Description 09/01/2017 Procedure Pass [facility] [address] [place] [address] Social History Tobacco Use Types Packs/Day Years [...] documented as of this encounter Care Teams Manager Testing Relationship Specialty Start Date End Date Milton Schaefer NP [address] [facility] [address] PCP - General Family Medicine 08/15/17 09/05/21 Milton Schaefer NP [address] [facility] [address] PCP - General Family Medicine 09/06/21 documented as of this encounter Additional Source Comments The information contained in this document represents components of the legal health record. It is not the complete legal health record.[facility]
--- OUTSIDE RECORDS SUMMARY | 2025-05-02 03:13 | XMS_ITS | Data Portability ---
Author Organization [place] [facility], Allergy Address [address] [address] Care Team Providers Care Operations Administrator Name Role Phone NATACHAKATHYA HI Primary Care Provider [phone] Assessment Encounter Date Assessment Date Assessment LastModified by Organization Details LastModified Time 01/20/2025 01/20/2025 Both ears continue to show about 80% occlusive exostoses which are unchanged in comparison to prior photographs. Patient has not been having any issues with water trapping, infection, or blockage. He knows what he has to do after water exposure to prevent water trapping. At this point is having no negative effect on his quality of life. As such I would not recommend any additional specific intervention other than observation. Patient may follow-up for reevaluations as needed. [email or web address] Not available 01/20/2025 09:07:13 Plan of Treatment Reminders Order Date Submit Date Provider Last Modified By Organization Details Last Modified Time Details Appointments None record ed. Lab None record ed. Referral None record ed. Procedures None record ed. Surgeries None record ed. Imaging None record ed. Medication Orders None record ed. Patient TargetsNo targets recorded. Patient InstructionsNo instructions recorded. Reason for Referral None Reported. Problems Name Problem SNOMED Code Status Onset Date Resolution Date Notes Provider Name and Address Organization Details Recorded Time Sensorine ural hearing loss of bilateral ears 217601377 Active 2021 Sensorine ural hearing loss, bilateral ; Note: Date Diagnosed : 09/27/2021 9:33 AM (H90.3) Not Available [facility] 4 02:49:27 Bilateral exostosis of external ear canals 47015280012 15200 Active 2021 Exostosis of external canal, bilateral ; Note: Date Diagnosed : 09/27/2021 10:33 AM (H61.813) Not Available [facility] 4 02:49:27 Abnormal auditory perceptio n 01713135 Active 2021 Other abnormal auditory perceptio ns, bilateral ; Note: Date Diagnosed : 09/30/2021 10:37 AM (H93.293) Not Available [facility] 4 02:49:22 Problem Notes None recorded. Procedures Surgical History Date Name Laterality Status Provider Name and Address Organization Details Recorded Time testis excision completed Iris Washington [place] - [facility] 01/20/2025 08:47:18 Imaging Results None recorded. Procedure Notes None recorded. Medical Equipment None Reported. Allergies No known drug allergies Medications Name Sig Start Date Stop Date Status Note LastModified by Organization Details LastModified Time multivita min tablet 01/20 completed Medicati on ID: [id number] B rand Name: multivit thomson Sen d Method: E-Prescr ibed Sub s Allowed: subs OK Medic ationGen ericName : multivit thomson Not Available Not Available Not Available benzonata te 200 mg capsule TAKE 1 CAPSULE BY MOUTH THREE TIMES A DAY FOR 4 DAYS 01/20 completed Not Available Not Available Not Available prednison e 20 mg tablet TAKE 1 TABLET BY MOUTH EVERY DAY FOR 5 DAYS 01/20 completed Not Available Not Available Not Available Zyrtec 10 mg tablet active Medicati on ID: [id number] B rand Name: Zyrtec S end Method: E-Prescr ibed Sub s Allowed: subs OK Medic ationGen ericName : Zyrtec Not Available Not Available Not Available omeprazol e 40 mg capsule,d elayed release TAKE 1 CAPSULE BY MOUTH EVERY DAY active Not Available Not Available No t Available levothyro xine 25 mcg tablet TAKE 1 TABLET BY MOUTH EVERY DAY active Not Available Not Available No t Available omeprazol e 20 mg capsule,d elayed release 01/20 completed Medicati on ID: [id number] B rand Name: omeprazo le Send Method: E-Prescr ibed Sub s Allowed: subs OK Medic ationGen ericName : omeprazo le Not Available Not Available Not Available codeine 10 mg-guaife nesin 100 mg/5 mL oral liquid TAKE 5 ML BY MOUTH EVERY 6 HOURS NEEDED FOR COUGH, DO NOT TAKE COCURREN TLY WITH ZOLPIDEM . 01/20 completed Not Available Not Available Not Available albuterol sulfate HFA 90 mcg/actua tion aerosol inhaler TAKE 2 PUFFS EVERY 4 TO 6 HOURS FOR SHORTNES S OF BREATH OR WHEEZING active Not Available Not Available No t Available amoxicill in 875 mg-potass ium clavulana te 125 mg tablet TAKE 1 TABLET BY MOUTH TWICE A DAY FOR 7 DAYS 01/20 completed Not Available Not Available Not Available hydrochlo rothiazid e 12.5 mg tablet TAKE 1 TABLET BY MOUTH EVERY DAY active Not Available Not Available No t Available Vitals None Recorded Social History None recorded. Functional Status None recorded. Mental Status None recorded. Family History Nothing Reported. Medical History Condition Response Thyroid Problems Y GERD/Reflux Y Past Encounters Encounter ID Performer Location Encounter Start Date Encounter Closed Date Diagnosis/Indication Diagnosis SNOMED-CT Code Diagnosis ICD10 Code Diagnosis IMO Codes Diagnosis Note [id number] CORNELIA REYES MD [facility] [address] [address] 01/20/2025 08:38:51 01/20/2025 09:06:29 Bilateral exostosis of external ear canals [id number] 329985 H61.813 Health Concerns Section Related Observation LastModified by Organization Detai ls LastModified Time None Recorded Concern Status LastModified by Organization Details LastModified Time None Recorded Advance Directives Directive None Recorded Payers Insurance Date Sequence Insurance Name Policy Number Policy Miranda Covered Member ID Miranda Member ID Guarantor Name 01/20/2025 1 BENNIE (PPO) [id number] [id number] Notes Date Note Type Note Provider Name and Address Organization Details Recorded Time 01/20/2025 text/html Patient who I saw in September 2021 with bilateral 80% occlusive exostoses secondary to cold water exposure. They were not occlusive enough at that time to warrant consideration of surgery. I recommended earplugs for cold water exposure and use of rubbing alcohol in the ears after swimming to help dry out the ear canals. He has not had any issues with pain, discharge, or ear blockage since his last visit. CORNELIA REYES MD [address] [place] [address], [phone], [facility] - [facility] 01/20/2025 09:07:28
--- OUTSIDE RECORDS SUMMARY | 2025-05-02 03:13 | XMS_ITS | Encounter Summary ---
Author Organization [facility] Address [address] [facility] [address] [place] [address] Phone Care Team Providers Care Media Developer Name Role Phone Milton Schaefer COLLEGE ASSOCIATE Primary Care Provider + Milton Schaefer COLLEGE ASSOCIATE Primary Care Provider + Encounter Details Date Type Department Care Team (Late st Contact Info) Description 09/01/2017 Procedure Pass [facility] [address] [place] [address] Social History Tobacco Use Types Packs/Day Years [...] documented as of this encounter Care Teams Media Developer Relationship Specialty Start Date End Date Milton Schaefer NP [address] [facility] [place] [address] PCP - General Family Medicine 08/15/17 09/05/21 Milton Schaefer NP [address] [facility] [place] [address] PCP - General Family Medicine 09/06/21 documented as of this encounter Additional Source Comments The information contained in this document represents components of the legal health record. It is not the complete legal health record.[facility]"
--- OUTSIDE RECORDS SUMMARY | 2025-05-02 03:13 | XMS_ITS | Encounter Summary ---
Author Organization [facility] Address [address] [facility] [address] [place] [address] Phone Care Team Providers Care Land Leasing Information Clerk Name Role Phone Milton Schaefer WASHERY ENGINEER Primary Care Provider + Milton Schaefer WASHERY ENGINEER Primary Care Provider + Encounter Details Date Type Department Care Team (Late st Contact Info) Description 09/01/2017 Procedure Pass [facility] [address] [place] [address] Social History Tobacco Use Types Packs/Day Years [...] documented as of this encounter Care Teams Land Leasing Information Clerk Relationship Specialty Start Date End Date Milton Schaefer NP [address] [facility] [place] [address] PCP - General Family Medicine 08/15/17 09/05/21 Milton Schaefer NP [address] [facility] [place] [address] PCP - General Family Medicine 09/06/21 documented as of this encounter Additional Source Comments The information contained in this document represents components of the legal health record. It is not the complete legal health record.[facility]
--- OUTSIDE RECORDS SUMMARY | 2025-05-02 03:13 | XMS_ITS | Encounter Summary ---
Author Organization [facility] Address [address] [address] Phone Care Team Providers Care Press Brake Operator Name Role Phone Milton Schaefer SACK CLEANER Primary Care Provider + Milton Schaefer SACK CLEANER Primary Care Provider + Reason for Referral * MRI/CAT Scan - Closed Specialty Diagnoses / Procedures Referred By Contac t Referred To Contact Procedures CT Abdomen/Pelvis Outside (No Interpretation) Claudy Hollingsworth MD Phone: tel: fax: mailto:[email or web address] Referral ID Status Reason Start Date Expiration Date Visits Re quested Visits Authorized [id number] Closed 09/01/2017 09/01/2018 1 1 * MRI/CAT Scan - Closed Specialty Diagnoses / Procedures Referred By Contac t Referred To Contact Procedures CT Abdomen/Pelvis Outside (No Interpretation) Claudy Hollingsworth MD Phone: tel: fax: mailto:[email or web address] Referral ID Status Reason Start Date Expiration Date Visits Re quested Visits Authorized [id number] Closed 09/01/2017 09/01/2018 1 1 * MRI/CAT Scan - Closed Specialty Diagnoses / Procedures Referred By Contac t Referred To Contact Procedures CT Chest Outside (No Interpretation) Claudy Hollingsworth MD Phone: tel: fax: mailto:[email or web address] Referral ID Status Reason Start Date Expiration Date Visits Re quested Visits Authorized [id number] Closed 09/01/2017 09/01/2018 1 1 * MRI/CAT Scan - Closed Specialty Diagnoses / Procedures Referred By Contac t Referred To Contact Procedures CT Chest Outside (No Interpretation) Claudy Hollingsworth MD Phone: tel: fax: mailto:[email or web address] Referral ID Status Reason Start Date Expiration Date Visits Re quested Visits Authorized [id number] Closed 09/01/2017 09/01/2018 1 1 Encounter Details Date Type Department Care Team (Late st Contact Info) Description 09/01/2017 Transcribe Orders [facility] [address] [place] [address] Delroy Alejandro [address] [place] [address] [email or web address] Social History Tobacco Use Types Packs/Day [...] (No Interpretation) (09/01/2017 1:00 AM EDT) Narrative [facility] - 09/01/2017 9:30 AM EDT This study [...] ERPRETATION Final Result Performing Organization Address [facility] Co de Phone Number [facility] * CT Chest Outside (No Interpretation) (09/01/2017 12:00 AM EDT) Narrative [facility] - 09/01/2017 9:30 AM EDT This study is for PACS storage only and not for interpretation. us Claudy Hollingsworth MD IMG OUTSIDE IMAGING W/OUT INT ERPRETATION Final Result Performing Organization Address City/State/[facility] Co de Phone Number [facility] documented in this encounter Visit Diagnoses Not on filedocumented in this encounter Additional Health Concerns Infection Onset Date Last Indicated Resolved Time CoV-Risk 09/06/2021 09/06/2021 09/17/2021 1:23 AM EDT documented as of this encounter Care Teams Press Brake Operator Relationship Specialty Start Date End Date Milton Schaefer NP [address] [facility] [place] [address] PCP - General Family Medicine 08/15/17 09/05/21 Milton Schaefer NP [address] [facility] [place] [address] PCP - General Family Medicine 09/06/21 documented as of this encounter Additional Source Comments The information contained in this document represents components of the legal health record. It is not the complete legal health record.[facility]
[2025-05-02 08:03] LABS: HBS Num1 0.00 mIU/mL (0-7.99); HBc Num1 0.08 S/CO (0.00-0.79); HBsAGNum1 0.34 S/CO (0.00-0.99); Hepatitis A Antibody IgM 0.18 Index (0-0.79); Hepatitis B Surface Antigen Negative (Negative); ~HepC Num1 0.08 S/CO (0.00-0.79); ~Hepatitis A Antibody IgM Nonreactive (Nonreactive); ~Hepatitis B Surface Antibody NONREACTIVE (Nonreactive); ~Hepatitis C Antibody Nonreactive (Nonreactive)
[2025-05-02 09:33] LABS: INTERNATIONAL NORM RATIO 1.1 (0.9-1.1); Prothrombin Time 13.4 SEC (11.2-13.5)
[2025-05-02 10:02] LABS: Alanine Aminotransferase 412 U/L (0-40); Albumin Level 3.4 g/dL (3.5-5.0); Alkaline Phosphatase 128 U/L (39-117); Anion Gap 11 (12-20); Aspartate Amino Transferase 280 U/L (5-37); Blood Urea Nitrogen 15 mg/dL (9-16); Calcium 8.4 mg/dL (8.4-10.2); Carbon Dioxide 25 mmol/L (22-29); Chloride 104 mmol/L (96-108); Creatinine Clr Calc Pharmacy 102.8; Estimated Glomerular Filt Rate > 60; Potassium 4.0 mmol/L (3.3-5.1); Sodium 136 mmol/L (135-145); Total Protein 5.3 g/dL (6.5-8.0)
== END 2025-05-02 12:00 | disposition home or self-care (01) ==
PROVIDERS: Emergency Medicine Emergency Medical Services; Emergency Provider Emergency Medicine; PCP Nurse Practitioner Family
DX: J06.9 Acute upper respiratory infection, unspecified (principal); R79.89 Other specified abnormal findings of blood chemistry
CPT/HCPCS: 36415; 71045; 71275; 74177; 76705; 80048; 80053; 80076; 80143; 81001; 85025; 85610; 86308; 86704; 86706; 86709; 86803; 87340; 87637; 96361; 96372; 96374; 96375; 99285; J1885; J2405; Q9967

== ENCOUNTER 2025-05-06 07:59 | Outpatient (REF) | payer BC, SELFPAY ==
--- OUTSIDE RECORDS SUMMARY | 2019-12-16 15:55 | XMS_ITS | Encounter Summary ---
Author Organization [facility] Address [address] [facility] [address] [place] [address] Phone Care Team Providers Care Lunch Cook Name Role Phone Milton Schaefer PHARMACEUTICAL BOTANIST Primary Care Provider + Encounter Details Date Type Department Care Team (Late st Contact Info) Description 12/16/2019 4:55 PM EDT Hospital Encounter [facility] [address] [place] [phone] Flower Cullen CNP 12 [place] [address] Social History Tobacco Use Types Packs/Day Years [...] symptoms around the second toeidentified. Flower Cullen SAFETY INTERN IMG XR LOWER EXTREMITY Janeth l Result documented in this encounter Visit Diagnoses Not on filedocumented in this encounter Additional Health Concerns Infection Onset Date Last Indicated Resolved Time CoV-Risk 09/06/2021 09/06/2021 09/17/2021 1:23 AM EDT documented as of this encounter Care Teams Lunch Cook Relationship Specialty Start Date End Date Milton Schaefer NP [facility] [place] [address] PCP - General Family Medicine 08/15/17 09/05/21 documented as of this encounter Additional Source Comments The information contained in this document represents components of the legal health record. It is not the complete legal health record.[facility]
--- OUTSIDE RECORDS SUMMARY | 2021-09-06 17:44 | XMS_ITS | Encounter Summary ---
Author Organization [facility] Address [address] [facility] [address] [place] [phone] Phone Care Team Providers Care Pulp Piler Name Role Phone Milton Schaefer REPAIR SUPERVISOR Primary Care Provider + Encounter Details Date Type Department Care Team (Late st Contact Info) Description 09/06/2021 6:44 PM EDT Hospital Encounter [facility] [address] [place] [phone] Flower Cullen CNP [address] [place] [address] [email or web address] Social History Tobacco Use Types Packs/Day Years [...] spine. IMPRESSION: No acute process. Flower Cullen PUBLIC HEALTH INFORMATICIAN IMG XR CHEST Final Resul t documented in this encounter Visit Diagnoses Not on filedocumented in this encounter Additional Health Concerns Infection Onset Date Last Indicated Resolved Time CoV-Risk 09/06/2021 09/06/2021 09/17/2021 1:23 AM EDT documented as of this encounter Care Teams Pulp Piler Relationship Specialty Start Date End Date Milton Schaefer NP [address] [facility] [place] [address] PCP - General Family Medicine 09/06/21 documented as of this encounter Additional Source Comments The information contained in this document represents components of the legal health record. It is not the complete legal health record.[facility]
--- OUTSIDE RECORDS SUMMARY | 2024-02-29 08:05 | XMS_ITS | Encounter Summary ---
Author Organization [facility] Address [address] [place] [address] Care Team Providers Care Miller Head Assistant Wet Process Name Role Phone KariMilton allison Nick BERMUDEZ Primary Care Provider Encounter Details Date Type Department Care Team ([facility] st Contact Info) Description 02/29/2024 9:05 AM EDT Hospital Encounter TH HISTORIC ENCOUNTERS EASTERN CONVERSION ONLY Paola Hassan MD [address] [place] [id number] Social History Tobacco Use Types Packs/Day Years Used Date Smoking Tobacco: Never Smokeless Tobacco: Never Alcohol Use Standard Drinks/Week Comments Yes 0 (1 standard drink = 0.6 oz pur e alcohol) Sex and Gender Information Value Date Recorded Sex Assigned at Not on file Legal Sex Male 8:16 AM EST Gender Identity Not on file Sexual Orientation Not on file documented as of this encounter Last Filed Vital Signs Vital Sign Reading Time Taken Comments Blood Pressure 146/90 02/29/2024 9:14 AM EDT Sit ting Left arm Pulse 94 02/29/2024 9:14 AM EDT Temperature - - Respiratory Rate - - Oxygen Saturation - - Inhaled Oxygen Concentration - - Weight 101 kg (223 lb) 02/29/2024 9:14 AM EDT Height 175.3 cm (5' 9 ) 12/10/2021 9:35 AM EDT Body Mass Index 32.93 12/10/2021 9:35 AM EDT documented in this encounter Progress Notes * Paola Hassan MD - 02/29/2024 9:15 AM EDT CHIEF COMPLAINT: Follow-up IDENTIFIER:Hill Doll is a 44 y.o. male. 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, patient received 3 cycle of BEP followed by left orchiectomy at [facility], patient has been on surveillance (please see oncology history for details), patient has no sign symptoms suggestive of recurrence of his disease ROS: No anorexia or weight loss Has been feeling great Sometime mild fatigue No chest pain shortness of breath No abdominal pain or discomfort No bowel issues No issues Denies any neurological symptom Oncology History Overview Note -37-year-old man, who presented to emergency room of [facility] in July 2017, with2-3 weeks off worsening lower back pain radiating to left lower abdomen, patient had a CT scan thatshowed a 7.1 cm lobulated mass in the left retroperitoneum, patient had biopsy that confirmed seminoma. 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 of unclear etiology _patient Could not have PET scan in March, he had CT scan by his urologist showed significant decrease in lesion ,also tumor marker reported normal _patient had follow-up CT scan in July 2018 showed no evidence of recurrence or progression _Patient is scant at [facility] in early 2019 were unremarkable, patient's tumor marker AFP on 11/08/2019 was only 4.9 _Patient follow-up CT scan on 03/06/2020 showed interval decrease in left-sided abdominal retroperitoneal lymphadenopathy but it was done in [facility] compared with previous scan of pretreatmentscan of 2017, patient LDH and AFP remained normal _Patient labs again in June 2020, remained normal as well a chest x-ray was normal _Patient CT scan again showed no evidence of recurrence in January 2021, there is again prominentleft para-aortic lymph node which is unchanged or may be slightly less than before _Patient tumor marker in January 2023 again AFP 3.7 and hCG less than 1, patient CT scan also showed no significant abnormality except fatty liver which is chronic PAST MEDICAL HISTORY: GERD Fatty liver Hypothyroidism Allergies Vasectomy Seminoma of left testicle diagnosed and treated in 2018 SOCIAL HISTORY: He never smoked He drinks socially He is lives with his family FAMILY HISTORY: Noncontributory Current Outpatient Medications: ??? cetirizine (ZYRTEC) 10 MG tablet, Take 1 tablet (10 mg total) by mouth daily., Disp: , Rfl: ??? hydroCHLOROthiazide (MICROZIDE) 12.5 MG capsule, Take 1 capsule (12.5 mg total) by mouth daily., Disp: , Rfl: ??? levothyroxine (SYNTHROID) tablet 25 mcg, Take 1 tablet (25 mcg total) by mouth every morning lalo empty stomach., Disp: , Rfl: ??? Multiple Vitamin (MULTI-VITAMIN DAILY PO), Take by mouth., Disp: , Rfl: ??? omeprazole (PRILOSEC) 20 MG capsule, Take 1 capsule (20 mg total) by mouth daily., Disp: , Rfl: ??? zolpidem (AMBIEN) 5 MG tablet, Take 1 tablet (5 mg total) by mouth every night at bedtime as needed for sleep., Disp: , Rfl: You are allergic to the following Date Reviewed: 02/29/2024 No active allergies PHYSICAL EXAM: BP 146/90 (BP Location: Left arm) Pulse 94 Temp 98.5 ??F (36.9 ??C) (Temporal) Wt 101.2 kg (223 lb) SpO2 99% BMI 32.93 kg/m?? ECOG 0 APPEARANCE: Alert and oriented x 3 in no acute distress EYES: nonicteric sclera pink conjunctiva ORAL CAVITY: No erythema or exudates NECK: Neck supple, no significant adenopathy, HEART: normal S1 and S2 LUNG: clear to auscultation bilaterally LYMPH NODES: No inguinal adenopathy ABDOMEN: soft, nontender and no organomegaly appreciated ; no palpable mass in the right testicle and no gross in the scrotum EXTREMITIES: No edema erythema or tenderness LABS: Alpha-fetoprotein level is 3.4 hCG less than 1 SGOT 21, SGPT 66 alk phos 84 BUN 25 creatinine 1.20 Calcium 9.6 WBC 6.5, hemoglobin 15.7 g, hematocrit 47.3% and platelet count 1 98,000 IMPRESSION: SNOMED CT(R) 1. Seminoma of left testis (HCC) SEMINOMA OF TESTIS 44-year-old man, who diagnosed in early 2017 with stage III seminoma of left testicle, patient was treated aggressively, patient received 3 cycle of BEP in early 2017 with a very good response, patient underwent left orchiectomy in December 2017 in [facility], patient has been on surveillance, never had any relapse or recurrence, patient did not have any scan for last 2 to 3-year because of excessive exposure of radiation and since patient has been clinically feeling well with normal tumor marker I gave him reassurance regarding cure from his testicular cancer, since it is almost 7-year PLAN: Return to office as needed Recommend to PCP check once a year hCG, alpha-fetoprotein and LDH Paola Hassan MD documented in this encounter Plan of Treatment Not on file documented as of this encounter Procedures Procedure Name Priority Date/Time Associated Diagnosis Comments ..MISCELLANEOUS REFERENCE LAB TEST 02/29/2024 documented in this encounter Results * Miscellaneous reference lab test (02/29/2024) us Provider Onbase LAB BLOOD ORDERABLES Final Re sult documented in this encounter Visit Diagnoses Not on filedocumented in this encounter Care Teams Miller Head Assistant Wet Process Relationship Specialty Start Date End Date Milton Schaefer NP [address] [place], [place] PCP - General Family Medicine 09/07/17 documented as of this encounter
--- OUTSIDE RECORDS SUMMARY | 2025-05-06 08:02 | XMS_ITS | Encounter Summary ---
Author Organization [facility] Address [address] [place] [address] Phone Care Team Providers Care Abalone Processor Name Role Phone Milton Schaefer NURSING HOME DIRECTOR Primary Care Provider + Milton Schaefer NURSING HOME DIRECTOR Primary Care Provider + Encounter Details Date Type Department Care Team (Late st Contact Info) Description 11/13/2017 Procedure Pass [facility] Periop [address] [place] [address] Social History Tobacco Use Types Packs/Day Years [...] documented as of this encounter Care Teams Abalone Processor Relationship Specialty Start Date End Date Mitlon Schaefer, LARA [address] [facility] [place] [address] PCP - General Family Medicine 08/15/17 09/05/21 Milton Schaefer NP [address] [facility] [place] [address] PCP - General Family Medicine 09/06/21 documented as of this encounter Additional Source Comments The information contained in this document represents components of the legal health record. It is not the complete legal health record.[facility]
--- OUTSIDE RECORDS SUMMARY | 2025-05-06 08:02 | XMS_ITS | Clinical Summary ---
Author Organization [facility] [place] [address] Phone Care Team Providers Care Gyn Physician Name Role Phone Milton Schaefer NP Primary [...] age to complete this topic Care Teams Gyn Physician Relationship Specialty Start Date End Date Milton Schaefer NP [address] [facility] [place] PCP - General Family Medicine 09/07/17
--- OUTSIDE RECORDS SUMMARY | 2025-05-06 08:02 | XMS_ITS | Clinical Summary ---
Author Organization [facility] Address [address] [place], [place] [address] Care Team Providers Care Nuisance Wildlife Control Operator Name Role Phone Milton Schaefer NP Primary Care Provider + Allergies No known active allergies Medications omeprazole (PriLOSEC) [address] capsule TK 1 C PO BID 0 8 Active cetirizine (ZyrTEC) 10 MG tablet Take 10 mg by mouth daily. Active B complex vitamins capsule Take 1 capsule by mouth daily. Active docusate sodium (COLACE) 100 MG capsule Take 1 capsule (100 mg total) by mouth every morning & every evening. Take while requiring narcotic pain medication to prevent constipation 60 capsule 8 Active acetaminophen (TYLENOL) 500 MG tablet Take 500 mg by mouth every 6 hours as needed for pain. Active zolpidem (AMBIEN) 5 MG tablet Take 5 mg by mouth at bedtime as needed for insomnia. Active Active Problems Problem Noted Date Diagnosed Date Testicular mass 11/14/2017 Overview (11/14/2017): Added automatically from request for surgery [id number] Family History Medical History Relation Comments Diabetes type II Father Colon cancer Maternal Grandfather Metastatic Relation Status Comments Father Maternal Grandfather Social History Tobacco Use Types Packs/Day Years Used Date Smoking Tobacco: Never Smokeless Tobacco: Never Alcohol Use Standard Drinks/Week Comments Yes 0 (1 standard drink = 0.6 oz pur e alcohol) modest Sex and Gender Information Value Date Recorded Sex Assigned at Male 04/24/2018 11:02 AM EST Legal Sex Male 10:55 AM EDT Gender Identity Male 04/24/2018 11:02 AM EST Sexual Orientation Not on file Occupation Industry Job Start Date Job End Date [employer] Not on file Not on file Not on file Last Filed Vital Signs Vital Sign Reading Time Taken Comments Blood Pressure 131/81 01/05/2018 11:00 AM EDT Pulse 75 01/05/2018 10:45 AM EDT Temperature 36.4 C (97.5 F) 01/05/2018 8:54 AM EDT Respiratory Rate 11 01/05/2018 10:45 AM EDT Oxygen Saturation 100% 01/05/2018 12:30 PM EDT Inhaled Oxygen Concentration - - Weight 96.2 kg (212 lb) 12/25/2017 10:16 AM EDT Height 175.3 cm (5' 9 ) 12/25/2017 10:16 AM EDT Body Mass Index 31.31 12/25/2017 10:16 AM EDT Plan of Treatment Health Maintenance Due Date Last Done Comments Blood Pressure 1980 Lipid Panel 1980 PSA 1980 Prostate Cancer Screening 1980 SDM 1980 Depression Screening 1992 Hepatitis C Screening 02/18/1998 DTaP,Tdap,and Td Vaccines (1 - Tdap) 02/18/1999 COVID-19 Vaccine (2024-2 6 season) 2025 Influenza Vaccine (#1) 2025 CT Colonography 02/18/2025 Colonoscopy 02/18/2025 Colorectal Cancer Screening 02/18/2025 FIT 02/18/2025 FOBT 02/18/2025 Multitarget Stool DNA (Cologuard) 02/18/2025 Sigmoidoscopy 02/18/2025 Meningococcal B Vaccines Aged Out No longer eligible based on patient's age to complete this topic Meningococcal Vaccines Aged Out No lo nger eligible based on patient's age to complete this topic Pneumococcal Vaccine Aged Out No long er eligible based on patient's age to complete this topic Insurance [facility] Care Teams Nuisance Wildlife Control Operator Relationship Specialty Start Date End Date Milton Schaefer NP PCP - General Nurse Practitioner 10/31/17
--- OUTSIDE RECORDS SUMMARY | 2025-05-06 08:02 | XMS_ITS | Clinical Summary ---
Author Organization [facility] Address [address] [facility] [address] [place] [address] Phone Care Team Providers Care Ultrasound Tech Name Role Phone Milton Schaefer ORACLE FORMS DEVELOPER Primary Care Provider + Allergies No known [...] (12/16/2019): Added automatically from request for surgery [id number] Immunizations No known immunizations Social History Tobacco [...] topic Medical Devices Not on file [place] [address] [address] HMO [facility] PPO [address] [place], [place] [id number] [facility] [place]PO [address] [place], [place] [id number] Member Subscriber Plan / Payer (Ef fective 2016-Present) Name:Wendy Doll Relation to Subscriber:Self Name:WENDY DOLL Payer ID:Not on file Type:[facility] Address: [address] [place] [address] HMO Member Subscriber Plan / Payer (Ef fective 2016-Present) Name:Wendy Doll Relation to Subscriber:Self Name:WENDY DOLL Payer ID:Not on file Type:O Address: [address] [place] [address] HMO Member Subscriber Plan / Payer (Ef fective 2016-Present) Name:Wendy Doll Relation to Subscriber:Self Name:WENDY DOLL Payer ID:Not on file Type:O Address: [address] PPO EPO HMO [facility] PPO EPO Member Subscriber Plan / Payer (Ef fective 2016-Present) Name:Wendy Doll Relation to Subscriber:Self Name:WENDY DOLL Payer ID:Not on file Type:O Address: [address] PPO EPO Member Subscriber Plan / Payer (Ef fective 2016-Present) Name:Wendy Doll Relation to Subscriber:Self Name:WENDY DOLL Payer ID:Not on file Type:HMO Address: [place] [id number] [facility] PPO EPO [facility] HMO PPO EPO Care Teams Ultrasound Tech Relationship Specialty Start Date End Date Milton Schaefer NP [address] [facility] [place] [address] PCP - General Family Medicine 09/06/21 Additional Source Comments The information contained in this document represents components of the legal health record. It is not the complete legal health record.[facility]
--- OUTSIDE RECORDS SUMMARY | 2025-05-06 08:02 | XMS_ITS | Encounter Summary ---
Author Organization [facility] Address [address] [place] [address] Care Team Providers Care Research Support Specialist Name Role Phone Milton Schaefer NP Primary Care Provider + Encounter Details Date Type Department Care Team (Late st Contact Info) Description 01/19/2018 Orders Only [facility] Nuclear Medicine [address] [place] [address] Jada Villavicencio MD [address] [place] [address] Social History Tobacco Use Types Packs/Day Years [...] Industry Job Start Date Job End Date [employer] Not on file Not on file Not on file documented as of this encounter Plan of Treatment Not on file documented as of this encounter Visit Diagnoses Not on filedocumented in this encounter Care Teams Research Support Specialist Relationship Specialty Start Date End Date Milton Schaefer NP PCP - General Nurse Practitioner 10/31/17 documented as of this encounter
--- OUTSIDE RECORDS SUMMARY | 2025-05-06 08:02 | XMS_ITS | Data Portability ---
Author Organization [place] [facility], [facility]ergy Address [address] [address] Care Team Providers Care Photocopying Equipment Repairer Name Role Phone NATACHAKATHYA HI Primary Care Provider Assessment Encounter Date Assessment Date Assessment LastModified [...] Patient may follow-up for reevaluations as needed. [email or web address] Not available 01/20/2025 09:07:13 Plan of Treatment [...] Sensorine ural hearing loss of bilateral ears 176364679 Active 2021 Sensorine ural hearing loss, bilateral ; Note: Date Diagnosed : 09/27/2021 9:33 AM (H90.3) Not Available [facility] 4 02:49:27 Bilateral exostosis of external ear canals 06710063668 56487 Active 2021 Exostosis of external canal, bilateral ; Note: Date Diagnosed : 09/27/2021 10:33 AM (H61.813) Not Available [facility] 4 02:49:27 Abnormal auditory perceptio n 40215783 Active 2021 Other abnormal auditory perceptio ns, bilateral ; Note: Date Diagnosed : 09/30/2021 10:37 AM (H93.293) Not Available [facility] 4 02:49:22 Problem Notes None recorded. Procedures Surgical History Date Name Laterality Status Provider Name and Address Organization Details Recorded Time testis excision completed Iris Washington [place] - [facility] 01/20/2025 08:47:18 Imaging Results None recorded. Procedure Notes None recorded. Medical Equipment None Reported. Allergies No known drug allergies Medications Name Sig Start Date Stop Date Status Note LastModified by Organization Details LastModified Time multivita min tablet 01/20 completed Medicati on ID: [id number] B rand Name: multivit thomson Sen d [...] 10 mg tablet active Medicati on ID: [id number] B rand Name: Zyrtec S end Method: [...] elayed release 01/20 completed Medicati on ID: [id number] B rand Name: omeprazo le Send Method: [...] ICD10 Code Diagnosis IMO Codes Diagnosis Note [id number] CORNELIA REYES MD [facility] [address] [address] 01/20/2025 08:38:51 01/20/2025 09:06:29 Bilateral exostosis of external ear canals [id number] 398912 H61.813 Health Concerns Section Related Observation LastModified by Organization Detai ls LastModified Time None Recorded Concern Status LastModified by Organization Details LastModified Time None Recorded Advance Directives Directive None Recorded Payers Insurance Date Sequence Insurance Name Policy Number Policy Miranda Covered Member ID Miranda Member ID Guarantor Name 01/20/2025 1 BENNIE (PPO) [id number] [id number] [address] [facility] Notes Date Note Type Note Provider [...] since his last visit. CORNELIA REYES MD [address] [place] [address], [phone], [facility] - [facility] 01/20/2025 09:07:28
--- OUTSIDE RECORDS SUMMARY | 2025-05-06 08:03 | XMS_ITS | Clinical Summary ---
Author Organization [facility] Prior to 10/12/24 Address [address] [place] [address] Care Team Providers Care Retail Leader Name Role Phone Milton Schaefer Primary Care Provider [phone] Allergies No known active allergies Medications Medication [...] age to complete this topic Care Teams Retail Leader Relationship Specialty Start Date End Date Milton Schaefer [address] [place] [address] PCP - General Family Medicine 09/07/17
--- OUTSIDE RECORDS SUMMARY | 2025-05-06 08:03 | XMS_ITS | Encounter Summary ---
Author Organization [facility] Address [address] [facility] [address] [place] [address] Phone Care Team Providers Care Drafter Landscape Name Role Phone Milton Schaefer INFORMATION SUPPORT PROJECT MANAGER Primary Care Provider + Milton Schaefer INFORMATION SUPPORT PROJECT MANAGER Primary Care Provider + Encounter Details Date Type Department Care Team (Late st Contact Info) Description 09/01/2017 Procedure Pass [facility] [address] [place] [address] Social History Tobacco Use Types Packs/Day Years [...] documented as of this encounter Care Teams Drafter Landscape Relationship Specialty Start Date End Date Milton Schaefer NP [address] [place] [address] PCP - General Family Medicine 08/15/17 09/05/21 Milton Schaefer NP [address] [place] [address] PCP - General Family Medicine 09/06/21 documented as of this encounter Additional Source Comments The information contained in this document represents components of the legal health record. It is not the complete legal health record.[facility]
--- OUTSIDE RECORDS SUMMARY | 2025-05-06 08:03 | XMS_ITS | Encounter Summary ---
Author Organization Ondina Bustamante [facility] Address [address] [place] [address] Care Team Providers Care Perforator Loader Name Role Phone Milton Schaefer HIGH SCHOOL SCIENCE TEACHER Primary Care Provider + Encounter Details Date Type Department Care Team (Late st Contact Info) Description 05/31/[address] SCAN D[facility] CT Scan [address] [place] [address] Irma Miller MD Social History Tobacco Use Types Packs/Day Years [...] Industry Job Start Date Job End Date [employer] Not on file Not on file Not on file documented as of this encounter Plan of Treatment Not on file documented as of this encounter Visit Diagnoses Not on filedocumented in this encounter Care Teams Perforator Loader Relationship Specialty Start Date End Date Milton Schaefer NP PCP - General Nurse Practitioner 10/31/17 documented as of this encounter
--- OUTSIDE RECORDS SUMMARY | 2025-05-06 08:03 | XMS_ITS | Encounter Summary ---
Author Organization [facility] Address [address] [facility] [address] [place] [address] Phone Care Team Providers Care Stock Preparation Operator Name Role Phone Milton Schaefer FEDERAL APPELLATE LAW CLERK Primary Care Provider + Milton Schaefer FEDERAL APPELLATE LAW CLERK Primary Care Provider + Encounter Details Date Type Department Care Team (Late st Contact Info) Description 09/01/2017 Procedure Pass [facility] [address] [place] [address] Social History Tobacco Use Types Packs/Day Years [...] documented as of this encounter Care Teams Stock Preparation Operator Relationship Specialty Start Date End Date Milton Schaefer NP [address] [facility] [place] [address] PCP - General Family Medicine 08/15/17 09/05/21 Milton Schaefer NP [address] [facility] [place] [address] PCP - General Family Medicine 09/06/21 documented as of this encounter Additional Source Comments The information contained in this document represents components of the legal health record. It is not the complete legal health record.[facility]
--- OUTSIDE RECORDS SUMMARY | 2025-05-06 08:03 | XMS_ITS | Encounter Summary ---
Author Organization [facility] Address [address] [facility] [address] [place] [address] Phone Care Team Providers Care Supervisor Carpenters Name Role Phone Milton Schaefer CONSTRUCTION PROJECT COORDINATOR Primary Care Provider + Milton Schaefer CONSTRUCTION PROJECT COORDINATOR Primary Care Provider + Encounter Details Date Type Department Care Team (Late st Contact Info) Description 09/01/2017 Procedure Pass [facility] [address] [place] [address] Social History Tobacco Use Types Packs/Day Years [...] documented as of this encounter Care Teams Supervisor Carpenters Relationship Specialty Start Date End Date Milton Schaefer NP [address] [facility] [place] [address] PCP - General Family Medicine 08/15/17 09/05/21 Milton Schaefer NP [address] [facility] [place] [address] PCP - General Family Medicine 09/06/21 documented as of this encounter Additional Source Comments The information contained in this document represents components of the legal health record. It is not the complete legal health record.[facility]
--- OUTSIDE RECORDS SUMMARY | 2025-05-06 08:03 | XMS_ITS | Encounter Summary ---
Author Organization [facility] Address [address] [facility] [address] [place] [address] Phone Care Team Providers Care Veterinary Technology Instructor Name Role Phone Milton Schaefer MECHANICAL ARTIST Primary Care Provider + Milton Schaefer MECHANICAL ARTIST Primary Care Provider + Encounter Details Date Type Department Care Team (Late st Contact Info) Description 09/01/2017 Procedure Pass [facility] [address] [place] [address] Social History Tobacco Use Types Packs/Day Years [...] documented as of this encounter Care Teams Veterinary Technology Instructor Relationship Specialty Start Date End Date Milton Schaefer NP [address] [facility] [place] [address] PCP - General Family Medicine 08/15/17 09/05/21 Milton Schaefer NP [address] [facility] [place] [address] PCP - General Family Medicine 09/06/21 documented as of this encounter Additional Source Comments The information contained in this document represents components of the legal health record. It is not the complete legal health record.[facility]
--- OUTSIDE RECORDS SUMMARY | 2025-05-06 08:03 | XMS_ITS | Encounter Summary ---
Author Organization [facility] Address [address] [address] Phone Care Team Providers Care Char Filter Tank Tender Head Name Role Phone Milton Schaefer PLASTIC SURGERY ASSISTANT Primary Care Provider + Milton Schaefer PLASTIC SURGERY ASSISTANT Primary Care Provider + Reason for Referral * MRI/CAT Scan - Closed Specialty Diagnoses / Procedures Referred By Contac t Referred To Contact Procedures CT Abdomen/Pelvis Outside (No Interpretation) Claudy Hollingsworth MD Phone: tel: fax: mailto:[email or web address] Referral ID Status Reason Start Date Expiration Date Visits Re quested Visits Authorized [id number] Closed 09/01/2017 09/01/2018 1 1 * MRI/CAT Scan - Closed Specialty Diagnoses / Procedures Referred By Contac t Referred To Contact Procedures CT Abdomen/Pelvis Outside (No Interpretation) Claudy Hollingsworth MD Phone: tel: fax: mailto:[email or web address] Referral ID Status Reason Start Date Expiration Date Visits Re quested Visits Authorized [id number] Closed 09/01/2017 09/01/2018 1 1 * MRI/CAT Scan - Closed Specialty Diagnoses / Procedures Referred By Contac t Referred To Contact Procedures CT Chest Outside (No Interpretation) Claudy Hollingsworth MD Phone: tel: fax: mailto:[email or web address] Referral ID Status Reason Start Date Expiration Date Visits Re quested Visits Authorized [id number] Closed 09/01/2017 09/01/2018 1 1 * MRI/CAT Scan - Closed Specialty Diagnoses / Procedures Referred By Contac t Referred To Contact Procedures CT Chest Outside (No Interpretation) Claudy Hollingsworth MD Phone: tel: fax: mailto:[email or web address] Referral ID Status Reason Start Date Expiration Date Visits Re quested Visits Authorized [id number] Closed 09/01/2017 09/01/2018 1 1 Encounter Details Date Type Department Care Team (Late st Contact Info) Description 09/01/2017 Transcribe Orders [facility] [address] [place] [address] Delroy Alejandro [address] [place] [phone] [email or web address] Social History Tobacco Use Types Packs/Day [...] (No Interpretation) (09/01/2017 1:00 AM EDT) Narrative [facility] - 09/01/2017 9:30 AM EDT This [...] INT ERPRETATION Final Result Performing Organization Address [facility] Co de Phone Number [facility] * CT Chest Outside (No Interpretation) (09/01/2017 12:00 AM EDT) Narrative [facility] - 09/01/2017 9:30 AM EDT This study is for PACS storage only and not for interpretation. us Clauyd Hollingsworth MD IMG OUTSIDE IMAGING W/OUT INT ERPRETATION Final Result Performing Organization Address City/State/[facility] Co de Phone Number [facility] documented in this encounter Visit Diagnoses Not on filedocumented in this encounter Additional Health Concerns Infection Onset Date Last Indicated Resolved Time CoV-Risk 09/06/2021 09/06/2021 09/17/2021 1:23 AM EDT documented as of this encounter Care Teams Char Filter Tank Tender Head Relationship Specialty Start Date End Date Milton Schaefer NP [address] [place] [address] PCP - General Family Medicine 08/15/17 09/05/21 Milton Schaefer NP [address] [place] [address] PCP - General Family Medicine 09/06/21 documented as of this encounter Additional Source Comments The information contained in this document represents components of the legal health record. It is not the complete legal health record.[facility]
[2025-05-06 10:50] LABS: Hematocrit 40.9 % (42.0-52.0); Hemoglobin 13.9 g/dl (14.0-18.0); Imm Gran Abs Auto 0.03 X10*3/uL (0.00-0.03); Imm Gran Pct Auto 0.4 % (0.0-0.4); Lymphocytes Absolute Auto 2.9 X10*3/uL (1.2-4.9); MANUAL DIFF FLAG SCAN; Mean Corpuscular HGB Conc 34.0 g/dl (31.0-36.0); Mean Corpuscular Hemoglobin 29.6 pg (27.0-33.0); Mean Corpuscular Volume 87.0 fL (80.0-98.0); NRBC Abs Auto 0.000 X10*3/uL (0.0-0.012); NRBC Pct Auto 0.0 /100WBC (0.0-0.2); Platelet Count 180 X10*3/uL (160-400); Red Blood Count 4.70 X10*6/uL (4.60-5.80); SCAN SMEAR FLAG 1; White Blood Count 7.0 X10*3/uL (4.8-10.8)
[2025-05-06 11:04] LABS: Alanine Aminotransferase 179 U/L (0-40); Albumin Level 3.7 g/dL (3.5-5.0); Alkaline Phosphatase 114 U/L (39-117); Anion Gap 11 (12-20); Aspartate Amino Transferase 57 U/L (5-37); Blood Urea Nitrogen 17 mg/dL (9-16); Calcium 8.8 mg/dL (8.4-10.2); Carbon Dioxide 27 mmol/L (22-29); Chloride 104 mmol/L (96-108); Estimated Glomerular Filt Rate > 60; Potassium 3.7 mmol/L (3.3-5.1); Sodium 138 mmol/L (135-145); Total Protein 6.2 g/dL (6.5-8.0)
[2025-05-06 11:29] LABS: HBS Num1 0.00 mIU/mL (0-7.99); HBc Num1 0.09 S/CO (0.00-0.79); HBsAGNum1 0.29 S/CO (0.00-0.99); Hepatitis A Antibody IgM 0.14 Index (0-0.79); Hepatitis B Surface Antigen Negative (Negative); ~HepC Num1 0.14 S/CO (0.00-0.79); ~Hepatitis A Antibody IgM Nonreactive (Nonreactive); ~Hepatitis B Surface Antibody NONREACTIVE (Nonreactive); ~Hepatitis C Antibody Nonreactive (Nonreactive)
[2025-05-07 09:33] LABS: Lyme Abs Screen <0.90 index
[2025-05-07 22:43] LABS: A. Phagocytphilium DNA,RT-PCR NOT DETECTED (NOT DETECTED); Babesia Microti DNA, RT-PCR NOT DETECTED (NOT DETECTED); Borrelia Miyamotoi,DNA RT-PCR NOT DETECTED (NOT DETECTED); E.Chaffeensis DNA RT-PCR NOT DETECTED (NOT DETECTED); Lyme(Borrelia ssp)DNA RT-PCR NOT DETECTED (NOT DETECTED)
== END 2025-05-06 08:00 | disposition home or self-care (01) ==
LOC: HO.HMGCLDS 07:59
PROVIDERS: PCP Nurse Practitioner Family; Visit Provider Nurse Practitioner Family
DX: Z01.84 Encounter for antibody response examination (principal); R74.8 Abnormal levels of other serum enzymes; R79.89 Other specified abnormal findings of blood chemistry; W57.XXXA Bitten or stung by nonvenomous insect and other nonvenomous arthropods, initial encounter
CPT/HCPCS: 36415; 80053; 85025; 86617; 86618; 86704; 86706; 86709; 86803; 87340; 87468; 87469; 87478; 87484; 87798

== ENCOUNTER 2025-05-12 13:31 | Outpatient (REF) | payer BC, SELFPAY ==
[2025-05-12 16:19] LABS: MANUAL DIFF FLAG NO
[2025-05-12 16:25] LABS: Appearance Urine Clear; Glucose Urine UA Negative (Negative); PH 5.5 (5.0-9.0); Specific Gravity - Urine 1.015 (1.005-1.025); UMIC TRIGGER UACC YES
[2025-05-12 16:41] LABS: Hematocrit 41.1 % (42.0-52.0); Hemoglobin 13.6 g/dl (14.0-18.0); Imm Gran Abs Auto 0.02 X10*3/uL (0.00-0.03); Imm Gran Pct Auto 0.3 % (0.0-0.4); Lymphocytes Absolute Auto 3.5 X10*3/uL (1.2-4.9); Mean Corpuscular HGB Conc 33.1 g/dl (31.0-36.0); Mean Corpuscular Hemoglobin 29.1 pg (27.0-33.0); Mean Corpuscular Volume 88.0 fL (80.0-98.0); NRBC Abs Auto 0.000 X10*3/uL (0.0-0.012); NRBC Pct Auto 0.0 /100WBC (0.0-0.2); Platelet Count 278 X10*3/uL (160-400); Red Blood Count 4.67 X10*6/uL (4.60-5.80); White Blood Count 6.7 X10*3/uL (4.8-10.8)
--- OUTSIDE RECORDS SUMMARY | 2025-05-12 16:51 | XMS_ITS | Data Portability ---
Author Organization [place] [facility] Address [address] [address] Care Team Providers Care Emergency Dept Tech Name Role Phone NATACHAKATHYA HI Primary Care [...] Patient may follow-up for reevaluations as needed. [email or web address] Not available 01/20/2025 09:07:13 Plan of Treatment [...] Sensorine ural hearing loss of bilateral ears [id number] Active 2021 Sensorine ural hearing loss, bilateral ; Note: Date Diagnosed : 09/27/2021 9:33 AM (H90.3) Not Available [facility] 4 02:49:27 Bilateral exostosis of external ear canals [id number] 25402 Active 2021 Exostosis of external canal, bilateral ; Note: Date Diagnosed : 09/27/2021 10:33 AM (H61.813) Not Available [facility] 4 02:49:27 Abnormal auditory perceptio n [id number] Active 2021 Other abnormal auditory perceptio ns, bilateral ; Note: Date Diagnosed : 09/30/2021 10:37 AM (H93.293) Not Available [facility] 4 02:49:22 Problem Notes None recorded. Procedures Surgical History Date Name Laterality Status Provider Name and Address Organization Details Recorded Time testis excision completed Iris [place] - [facility] 01/20/2025 08:47:18 Imaging Results None recorded. Procedure Notes None recorded. Medical Equipment None Reported. Allergies No known drug allergies Medications Name Sig Start Date Stop Date Status Note LastModified by Organization Details LastModified Time multivita min tablet 01/20 completed Medicati on ID: [id number] B rand Name: multivit thomson Sen d [...] 10 mg tablet active Medicati on ID: [id number] B rand Name: Zyrtec S end Method: [...] elayed release 01/20 completed Medicati on ID: [id number] B rand Name: omeprazo le Send Method: [...] ICD10 Code Diagnosis IMO Codes Diagnosis Note [id number] CORNELIA REYES MD [facility] [address] [address] 01/20/2025 08:38:51 01/20/2025 09:06:29 Bilateral exostosis of external ear canals [id number] H61.813 Health Concerns Section Related Observation LastModified by Organization Detai ls LastModified Time None Recorded Concern Status LastModified by Organization Details LastModified Time None Recorded Advance Directives Directive None Recorded Payers Insurance Date Sequence Insurance Name Policy Number Policy Miranda Covered Member ID Miranda Member ID Guarantor Name 01/20/2025 1 BENNIE (PPO) [id number] [id number] Notes Date Note [...] since his last visit. CORNELIA REYES MD [address] [place] [address], [id number], [facility] - [facility] 01/20/2025 09:07:28
[2025-05-12 18:04] LABS: Albumin Level 4.0 g/dL (3.5-5.0); Alkaline Phosphatase 84 U/L (39-117); Anion Gap 11 (12-20); Aspartate Amino Transferase 36 U/L (5-37); Blood Urea Nitrogen 17 mg/dL (9-16); Calcium 9.1 mg/dL (8.4-10.2); Carbon Dioxide 28 mmol/L (22-29); Chloride 104 mmol/L (96-108); Estimated Glomerular Filt Rate > 60; Potassium 3.9 mmol/L (3.3-5.1); Sodium 139 mmol/L (135-145); Total Protein 6.4 g/dL (6.5-8.0)
[2025-05-12 18:17] LABS: Alanine Aminotransferase 59 U/L (0-40)
== END 2025-05-12 13:32 | disposition home or self-care (01) ==
LOC: HO.HMGCLDS 13:31
PROVIDERS: PCP Nurse Practitioner Family; Visit Provider Nurse Practitioner Family
DX: R39.89 Other symptoms and signs involving the genitourinary system (principal); R74.8 Abnormal levels of other serum enzymes
CPT/HCPCS: 36415; 80053; 81001; 82550; 85025

== ENCOUNTER 2025-05-12 13:31 | Outpatient (AMB) | payer BC, SELFPAY ==
--- OUTSIDE RECORDS SUMMARY | 2019-12-16 15:55 | XMS_ITS | Encounter Summary ---
Author Organization [facility] Address [address] [facility] [address] [place] [address] Phone Care Team Providers Care Journal Entry Audit Clerk Name Role Phone Milton Schaefer ANDROID PLATFORM DEVELOPER Primary Care Provider + Encounter Details Date Type Department Care Team (Late st Contact Info) Description 12/16/2019 4:55 PM EDT Hospital Encounter [facility] [address] [place] [phone] Flower Cullen CNP 12 [place] [address] Social History Tobacco Use Types Packs/Day Years [...] symptoms around the second toeidentified. Flower Cullen DIESEL ENGINE ERECTOR IMG XR LOWER EXTREMITY Janeth l Result documented in this encounter Visit Diagnoses Not on filedocumented in this encounter Additional Health Concerns Infection Onset Date Last Indicated Resolved Time CoV-Risk 09/06/2021 09/06/2021 09/17/2021 1:23 AM EDT documented as of this encounter Care Teams Journal Entry Audit Clerk Relationship Specialty Start Date End Date Milton Schaefer NP [facility] [place] [address] PCP - General Family Medicine 08/15/17 09/05/21 documented as of this encounter Additional Source Comments The information contained in this document represents components of the legal health record. It is not the complete legal health record.[facility]
--- OUTSIDE RECORDS SUMMARY | 2021-09-06 17:44 | XMS_ITS | Encounter Summary ---
Author Organization [facility] Address [address] [facility] [address] [place] [address] Phone Care Team Providers Care Typewriter Assembly And Parts Inspector Name Role Phone Milton Schaefer ENVIRONMENTAL ENGINEER Primary Care Provider + Encounter Details Date Type Department Care Team (Late st Contact Info) Description 09/06/2021 6:44 PM EDT Hospital Encounter [facility] [address] [place] [phone] Flower Cullen CNP [address] [place] [address] [email or web address] Social History Tobacco Use Types Packs/Day Years [...] spine. IMPRESSION: No acute process. Flower Cullen CASTING SORTER IMG XR CHEST Final Resul t documented in this encounter Visit Diagnoses Not on filedocumented in this encounter Additional Health Concerns Infection Onset Date Last Indicated Resolved Time CoV-Risk 09/06/2021 09/06/2021 09/17/2021 1:23 AM EDT documented as of this encounter Care Teams Typewriter Assembly And Parts Inspector Relationship Specialty Start Date End Date Milton Schaefer NP [address] [facility] [place] [address] PCP - General Family Medicine 09/06/21 documented as of this encounter Additional Source Comments The information contained in this document represents components of the legal health record. It is not the complete legal health record.[facility]
--- OUTSIDE RECORDS SUMMARY | 2024-02-29 08:05 | XMS_ITS | Encounter Summary ---
Author Organization [facility] Address [address] [place] [address] Care Team Providers Care Flat Breakdown Processor Name Role Phone KariMilton allison Nick BERMUDEZ Primary Care Provider [phone] Encounter Details Date Type Department Care Team ([facility] st Contact Info) Description 02/29/2024 9:05 AM EDT Hospital Encounter TH HISTORIC ENCOUNTERS EASTERN CONVERSION ONLY Paola Hassan MD [address] [place] [id number] Social History Tobacco Use Types Packs/Day Years [...] of BEP followed by left orchiectomy at [facility], patient has been on surveillance (please see [...] man, who presented to emergency room of [facility] in July 2017, with2-3 weeks off worsening [...] recurrence or progression _Patient is scant at [facility] in early 2019 were unremarkable, patient's tumor marker AFP on 11/08/2019 was only 4.9 _Patient follow-up CT scan on 03/06/2020 showed interval decrease in left-sided abdominal retroperitoneal lymphadenopathy but it was done in [facility] compared with previous scan of pretreatmentscan of [...] underwent left orchiectomy in December 2017 in [facility], patient has been on surveillance, never had [...] on filedocumented in this encounter Care Teams Flat Breakdown Processor Relationship Specialty Start Date End Date Milton Schaefer NP [address] [place], [place] PCP - General Family Medicine 09/07/17 documented as of this encounter
[2025-05-12 14:04] VITALS: BP 116/68; PULSE 95; RESP 16; O2SAT 96
--- NOTE | 2025-05-12 14:04 | A.OFFPC_ITS ---
Vital Signs 05/12/25 14:04 Weight 220 lb BP 116/68 Blood Pressure Location Lt brachial Position Sitting Respiration 16 Pulse 95 Pulse Source Pulse Oximeter Pulse Oximetry (%) 96 Oxygen Delivery Method Room Air Intake Visit Reasons: ED f/up Clinical Education Consultant Required: No Accompanied by: Self / Same As Patient Allergies No Known Allergies (No Known Allergies*) Allergy (Verified 05/12/25 14:05) pollen/seasonal Allergy (Mild, Uncoded 05/12/25 14:05) Unknown Tobacco use date assessed: 04/22/25 Dental Screening Dental Screen Date: 04/22/25 HPI ED f/up HPI Details Chief Complaint The patient presents for follow-up after a recent hospital admission. History of Present Illness The patient is a 45 year old male presenting for a hospital discharge follow-up. He presented to the emergency department on 05/01/2025 with generalized malaise, fevers, chills, coughing, and body aches, along with some abdominal discomfort and diarrhea. He denied any neck pain at that time. In the ER, he was noted to have a slight fever, tachycardia, and very dark urine. Laboratory workup revealed elevated liver enzymes with an AST of 335, ALT of 434, and an alkaline phosphatase of 134, though his bilirubin was within normal limits. His kidney function was fine, and swabs for influenza, COVID, and RSV, as well as a hepatitis screen, were all negative. A CT scan of the abdomen questioned enteritis, and he was treated with IV fluids. Since the admission, repeat liver enzymes have started to trend down, with a recent AST of 57 and ALT of 179. He currently reports soft stools but denies diarrhea or abdominal pain. Social History Health Maintenance Review of Systems - Constitutional: Reports a recent histo ry of fevers, chills, and body aches. - Respiratory: Reports a recent history of coughing. - Gastrointestinal: Reports recent abdom inal discomfort and diarrhea, which have now resolved to soft stools. - Musculoskeletal: Denies current abdomi nal pain. - Neck: Denies neck pain. - Genitourinary: Reports a history of ve ry dark urine. Physical Exam General: Cooperative, healthy appearing, comfortable, no acute distress and well developed Orientation: Patient oriented x3 Limitations: No limitations Head: Normal to inspection Ears: Hearing grossly normal bilaterally Nose: Normal external nose present Face and sinus: Normal facial exam Eyes: Appearance normal, both eyes and all related structures Neck: Normal visual inspection and Yes full ROM, no lymphadenopathy noted Respiratory: Normal respiratory effort and able to speak in complete sentences. Clear to auscultation bilaterally Cardiovascular: Regular rate and rhythm. Normal S1 and S2 GI: Normal to inspection. Soft to palpation and nontender, denies any abdominal pain Skin: No rashes or lesions noted Neuro: Patient oriented x3 Extremities: Normal to inspection Results - Laboratory: - Initial AST: 335; Recent AST: 57 - Initial ALT: 434; Recent ALT: 179 - ALK Phos: 134 - Bilirubin: Within normal limits. - Influenza, COVID-19, and RSV swabs: Aubree wilson. - Hepatitis screen: Negative. - Kidney function: Reported as fine. - Imaging: - CT Abdomen: Questioned enteritis. Plan 1. Acute Viral Illness With Gastroenteri tis And Resolving Transaminitis The patient's presentation is consistent with a recent viral illness that involved both respiratory and gastrointestinal systems, accompanied by a significant but resolving transaminitis. While a CPK was previously ordered due to dark urine and concern for rhabdomyolysis, his improving clinical status makes this less likely. The patient is improving symptomatically, with resolution of diarrhea and no abdominal pain on exam. The plan is to repeat labs today, including a CBC, liver function tests, urinalysis, and a CPK to ensure continued resolution. Discussion Notes I discussed with the patient that his presentation was consistent with a viral illness that also affected his liver and gastrointestinal tract. I informed him that his liver enzymes are trending in the correct direction, which is a positive sign. We will be repeating labs today, including a CPK to check for muscle breakdown given his report of dark urine. I advised him to contact me with any further questions or concerns or to go to the emergency department for any worsening symptoms. Patient Instructions - We will repeat your lab work today, in cluding blood tests for your liver and a muscle enzyme test. - Please contact the office if you have any new questions or concerns. - Go to the nearest emergency room if yo ur symptoms get worse. [facility] Medical History Ear pain, right Retroperitoneal mass Seminoma of left testis H/O splenomegaly Fatty liver Surgical History H/O unilateral orchiectomy Family History Mother No problems noted. 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 Current occupational exposures/hazards: Yes Cognitive needs: No Hearing needs: No Vision needs: No Questionnaire Thrive Questionnaire Date Thrive assessed: 06/17/24 I am a: Patient What is your living situation today?: I have a steady place to live Within the past 12 months, did the food you bought not last and you didn't have the money to get more?: Never true Within the past 12 months, did you worry whether your food would run out before you got money to buy more?: Never true Do you have trouble paying for medicines?: No Do you have trouble getting transportation to medical appointments?: No Do you have trouble paying your heating and electricity bill?: No Do you have trouble taking care of your child, family member or friend?: No Do you have trouble with day-to-day activities such as bathing, preparing meals, shopping, managing finances, etc.?: No Are you currently unemployed and looking for a job?: No Are you interested in more education?: No Currently or been in a relationship where the following occur: No concerns reported THRIVE Score: 0 SHIRA-7 AMB Questionnaire SHIRA-7 Date SHIRA - 7 assessed: 12/12/23 Source: Developed by Drs. Theo Reyes, Leticia Banerjee, Trenton Rodas and colleagues, with an educational vannessa from [employer]. Physical exam (Primary Care) Vital Signs: Last Vital Signs Pulse 95 05/12/25 14:04 Resp 16 05/12/25 14:04 BP 116/68 05/12/25 14:04 Pulse Ox 96 05/12/25 14:04 Oxygen Delivery Method Room Air 05/12/25 14:04 Tobacco/Smoking Status: Tobacco use Status Tobacco use date assessed 04/22/25 05/12/25 14:07 Patient Tobacco Use Status Never used Tobacco 05/12/25 14:07 e-Cigarette/Vaping Use Never Used 05/12/25 14:07 Thrive Assessment: Date of Thrive Assessment Date Thrive assessed 06/17/24 05/12/25 14:07 Currently or been in a relationship where the following occur: No concerns reported Coding Level of Care Code TCM Mod MDM <= 14 Days Diagnoses Illness R69 Urine discoloration R39.89 Elevated liver enzymes R74.8 Assessment & Plan Assessment & Plan (1) Illness: Code(s): R69 - Illness, unspecified Category: Medical (2) Urine discoloration: Code(s): R39.89 - Other symptoms and signs involving the genitourinary system Category: Medical (3) Elevated liver enzymes: Code(s): R74.8 - Abnormal levels of other serum enzymes Category: Medical Plan . Orders: Orders Creatine Kinase Total Today R39.89 - Other symptoms and signs involving the genitourinary system UA CC w/rflx Micro + Cult Today R69 - Illness, unspecified
--- OUTSIDE RECORDS SUMMARY | 2025-05-12 15:39 | XMS_ITS | Encounter Summary ---
Author Organization [facility] Address [address] [facility] [address] [place] [phone] Phone Care Team Providers Care Medical Field Representative Name Role Phone Milton Schaefer SFDC ARCHITECT Primary Care Provider + Milton Schaefer SFDC ARCHITECT Primary Care Provider + Encounter Details Date Type Department Care Team (Late st Contact Info) Description 09/01/2017 Procedure Pass [facility] [address] [place] [address] Social History Tobacco Use Types Packs/Day Years [...] documented as of this encounter Care Teams Medical Field Representative Relationship Specialty Start Date End Date Milton Schaefer NP [address] [facility] [place] [address] PCP - General Family Medicine 08/15/17 09/05/21 Milton Schaefer NP [address] [facility] [place] [address] PCP - General Family Medicine 09/06/21 documented as of this encounter Additional Source Comments The information contained in this document represents components of the legal health record. It is not the complete legal health record.[facility]
--- OUTSIDE RECORDS SUMMARY | 2025-05-12 15:39 | XMS_ITS | Data Portability ---
Author Organization [place] - [facility] Address [address] [address] Care Team Providers Care Planning Supervisor Name Role Phone NATACHAKATHYA HI Primary Care [...] Patient may follow-up for reevaluations as needed. [email or web address] Not available 01/20/2025 09:07:13 Plan of Treatment [...] Sensorine ural hearing loss of bilateral ears [id number] Active 2021 Sensorine ural hearing loss, bilateral ; Note: Date Diagnosed : 09/27/2021 9:33 AM (H90.3) Not Available [facility] 4 02:49:27 Bilateral exostosis of external ear canals [id number] 58642 Active 2021 Exostosis of external canal, bilateral ; Note: Date Diagnosed : 09/27/2021 10:33 AM (H61.813) Not Available [facility] 4 02:49:27 Abnormal auditory perceptio n [id number] Active 2021 Other abnormal auditory perceptio ns, bilateral ; Note: Date Diagnosed : 09/30/2021 10:37 AM (H93.293) Not Available [facility] 4 02:49:22 Problem Notes None recorded. Procedures Surgical History Date Name Laterality Status Provider Name and Address Organization Details Recorded Time testis excision completed Iris [place] - [facility] 01/20/2025 08:47:18 Imaging Results None recorded. Procedure Notes None recorded. Medical Equipment None Reported. Allergies No known drug allergies Medications Name Sig Start Date Stop Date Status Note LastModified by Organization Details LastModified Time multivita min tablet 01/20 completed Medicati on ID: [id number] B rand Name: multivit thomson Sen d [...] 10 mg tablet active Medicati on ID: [id number] B rand Name: Zyrtec S end Method: [...] elayed release 01/20 completed Medicati on ID: [id number] B rand Name: omeprazo le Send Method: [...] ICD10 Code Diagnosis IMO Codes Diagnosis Note [id number] CORNELIA REYES MD [facility] [address] [address] 01/20/2025 08:38:51 01/20/2025 09:06:29 Bilateral exostosis of external ear canals [id number] H61.813 Health Concerns Section Related Observation LastModified by Organization Detai ls LastModified Time None Recorded Concern Status LastModified by Organization Details LastModified Time None Recorded Advance Directives Directive None Recorded Payers Insurance Date Sequence Insurance Name Policy Number Policy Miranda Covered Member ID Miranda Member ID Guarantor Name 01/20/2025 1 BENNIE (PPO) [id number] [id number] Notes Date Note Type Note Provider [...] since his last visit. CORNELIA REYES MD [address] [place] [address], [id number], [facility] - [facility] 01/20/2025 09:07:28
--- OUTSIDE RECORDS SUMMARY | 2025-05-12 15:39 | XMS_ITS | Encounter Summary ---
Author Organization [facility] Address [address] [address] Phone Care Team Providers Care Manager Of Operations Name Role Phone Milton Shcaefer TOY STUFFER Primary Care Provider + Milton Schaefer TOY STUFFER Primary Care Provider + Reason for Referral * MRI/CAT Scan - Closed Specialty Diagnoses / Procedures Referred By Contac t Referred To Contact Procedures CT Abdomen/Pelvis Outside (No Interpretation) Claudy Hollingsworth MD Phone: tel: fax: mailto:[email or web address] Referral ID Status Reason Start Date Expiration Date Visits Re quested Visits Authorized [id number] Closed 09/01/2017 09/01/2018 1 1 * MRI/CAT Scan - Closed Specialty Diagnoses / Procedures Referred By Contac t Referred To Contact Procedures CT Abdomen/Pelvis Outside (No Interpretation) Claudy Hollingsworth MD Phone: tel: fax: mailto:[email or web address] Referral ID Status Reason Start Date Expiration Date Visits Re quested Visits Authorized [id number] Closed 09/01/2017 09/01/2018 1 1 * MRI/CAT Scan - Closed Specialty Diagnoses / Procedures Referred By Contac t Referred To Contact Procedures CT Chest Outside (No Interpretation) Claudy Hollingsworth MD Phone: tel: fax: mailto:[email or web address] Referral ID Status Reason Start Date Expiration Date Visits Re quested Visits Authorized [id number] Closed 09/01/2017 09/01/2018 1 1 * MRI/CAT Scan - Closed Specialty Diagnoses / Procedures Referred By Contac t Referred To Contact Procedures CT Chest Outside (No Interpretation) Claudy Hollingsworth MD Phone: tel: fax: mailto:[email or web address] Referral ID Status Reason Start Date Expiration Date Visits Re quested Visits Authorized [id number] Closed 09/01/2017 09/01/2018 1 1 Encounter Details Date Type Department Care Team (Late st Contact Info) Description 09/01/2017 Transcribe Orders [facility] [address] [place] [phone] Delroy Alejandro [address] [place] [id number] [email or web address] Social History Tobacco Use Types Packs/Day [...] (No Interpretation) (09/01/2017 1:00 AM EDT) Narrative [facility] - 09/01/2017 9:30 AM EDT [...] INT ERPRETATION Final Result Performing Organization Address [facility] Co de Phone Number [facility] * CT Chest Outside (No Interpretation) (09/01/2017 12:00 AM EDT) Narrative [facility] - 09/01/2017 9:30 AM EDT This study is for PACS storage only and not for interpretation. us Claudy Hollingsworth MD IMG OUTSIDE IMAGING W/OUT INT ERPRETATION Final Result Performing Organization Address City/State/[facility] Co de Phone Number [facility] documented in this encounter Visit Diagnoses Not on filedocumented in this encounter Additional Health Concerns Infection Onset Date Last Indicated Resolved Time CoV-Risk 09/06/2021 09/06/2021 09/17/2021 1:23 AM EDT documented as of this encounter Care Teams Manager Of Operations Relationship Specialty Start Date End Date Milton Schaefer NP [address] [place] [address] PCP - General Family Medicine 08/15/17 09/05/21 Milton Schaefer NP [address] [place] [address] PCP - General Family Medicine 09/06/21 documented as of this encounter Additional Source Comments The information contained in this document represents components of the legal health record. It is not the complete legal health record.[facility]
--- OUTSIDE RECORDS SUMMARY | 2025-05-12 15:39 | XMS_ITS | Encounter Summary ---
Author Organization [facility] Address [address] [facility] [address] [place] [address] Phone Care Team Providers Care Professor Of Biblical Studies Name Role Phone Milton Schaefer TUBE SKIVER Primary Care Provider + Milton Schaefer TUBE SKIVER Primary Care Provider + Encounter Details Date Type Department Care Team (Late st Contact Info) Description 09/01/2017 Procedure Pass [facility] [address] [place] [address] Social History Tobacco Use Types Packs/Day Years [...] documented as of this encounter Care Teams Professor Of Biblical Studies Relationship Specialty Start Date End Date Milton Schaefer NP [address] [facility] [place] [address] PCP - General Family Medicine 08/15/17 09/05/21 Milton Schaefer NP [address] [facility] [address] PCP - General Family Medicine 09/06/21 documented as of this encounter Additional Source Comments The information contained in this document represents components of the legal health record. It is not the complete legal health record.[facility]
--- OUTSIDE RECORDS SUMMARY | 2025-05-12 15:39 | XMS_ITS | Clinical Summary ---
Author Organization [facility] Address [address] [facility] [address] [place] [address] Phone Care Team Providers Care Patent Litigation Associate Name Role Phone Milton Schaefer WRITING TUTOR Primary Care Provider + Allergies No known [...] (12/16/2019): Added automatically from request for surgery [id number] Immunizations No known immunizations Social History Tobacco [...] topic Medical Devices Not on file Insurance [address] [place] [address] HMO [facility] [address]PO [address] [address] [place], [place] [address]O [facility] PPO [address] [place], [place] [address]O [facility] Address: [address] [place] [address] HMO Member Subscriber Plan / Payer (Ef fective 2016-Present) Name:Wendy Doll Relation to Subscriber:Self Name:WENDY DOLL Payer ID:Not on file Type:O Address: [address] [place] [address] [address] HMO Member Subscriber Plan / Payer (Ef fective 2016-Present) Name:Wendy Doll Relation to Subscriber:Self Name:WENDY DOLL Payer ID:Not on file Type:O Address: [address] PPO EPO HMO [facility] PPO EPO Member Subscriber Plan / Payer (Ef fective 2016-Present) Name:Wendy Doll Relation to Subscriber:Self Name:WENDY DOLL Payer ID:Not on file Type:O Address: [address] PPO EPO Member Subscriber Plan / Payer (Ef fective 2016-Present) Name:Wendy Doll Relation to Subscriber:Self Name:WENDY DOLL Payer ID:Not on file Type:HMO Address: [place] [id number] [facility] PPO EPO [facility] HMO PPO EPO Care Teams Patent Litigation Associate Relationship Specialty Start Date End Date Milton Schaefer NP [address] [place] [address] PCP - General Family Medicine 09/06/21 Additional Source Comments The information contained in this document represents components of the legal health record. It is not the complete legal health record.[facility]
--- OUTSIDE RECORDS SUMMARY | 2025-05-12 15:39 | XMS_ITS | Encounter Summary ---
Author Organization [facility] Address [address] [place] [address] Phone Care Team Providers Care Boiler Washer Name Role Phone Milton Schaefer COMMERCIAL RELIEF DRIVER Primary Care Provider + Milton Schaefer COMMERCIAL RELIEF DRIVER Primary Care Provider + Encounter Details Date Type Department Care Team (Late st Contact Info) Description 11/13/2017 Procedure Pass [facility] Periop [address] [place] [address] Social History Tobacco Use Types Packs/Day Years [...] documented as of this encounter Care Teams Boiler Washer Relationship Specialty Start Date End Date Milton Schaefer, LARA [address] [place] [address] PCP - General Family Medicine 08/15/17 09/05/21 Milton Schaefer NP [address] [place] [address] PCP - General Family Medicine 09/06/21 documented as of this encounter Additional Source Comments The information contained in this document represents components of the legal health record. It is not the complete legal health record.[facility]
--- OUTSIDE RECORDS SUMMARY | 2025-05-12 15:39 | XMS_ITS | Encounter Summary ---
Author Organization [facility] Address [address] [facility] [address] [place] [address] Phone Care Team Providers Care Logging Tractor Operator Name Role Phone Milton Schaefer PATCH WASHER Primary Care Provider + Milton Schaefer PATCH WASHER Primary Care Provider + Encounter Details Date Type Department Care Team (Late st Contact Info) Description 09/01/2017 Procedure Pass [facility] [address] [place] [address] Social History Tobacco Use Types Packs/Day Years [...] documented as of this encounter Care Teams Logging Tractor Operator Relationship Specialty Start Date End Date Milton Schaefer NP [address] [facility] [place] [address] PCP - General Family Medicine 08/15/17 09/05/21 Milton Schaefer NP [address] [facility] [place] [address] PCP - General Family Medicine 09/06/21 documented as of this encounter Additional Source Comments The information contained in this document represents components of the legal health record. It is not the complete legal health record.[facility]
--- OUTSIDE RECORDS SUMMARY | 2025-05-12 15:39 | XMS_ITS | Encounter Summary ---
Author Organization [facility] Address [address] [place] [address] Care Team Providers Care Senior Quality Methods Specialist Name Role Phone Milton Schaefer NP Primary Care Provider + Encounter Details Date Type Department Care Team (Late st Contact Info) Description 01/19/2018 Orders Only [facility] Nuclear Medicine [address] [place] [address] Jada Villavicencio MD [address] [place] [address] Social History Tobacco Use Types Packs/Day Years [...] Industry Job Start Date Job End Date [employer] Not on file Not on file Not on file documented as of this encounter Plan of Treatment Not on file documented as of this encounter Visit Diagnoses Not on filedocumented in this encounter Care Teams Senior Quality Methods Specialist Relationship Specialty Start Date End Date Milton Schaefer NP PCP - General Nurse Practitioner 10/31/17 documented as of this encounter
--- OUTSIDE RECORDS SUMMARY | 2025-05-12 15:39 | XMS_ITS | Clinical Summary ---
Author Organization [facility] Address [address] [place], [place] [id number] Care Team Providers Care Principal Librarian Name Role Phone Milton Schaefer NP Primary [...] (11/14/2017): Added automatically from request for surgery [id number] Family History Medical History Relation Comments Diabetes [...] Industry Job Start Date Job End Date [employer] Not on file Not on file [...] patient's age to complete this topic Insurance [facility] Care Teams Principal Librarian Relationship Specialty Start Date End Date Milton Schaefer NP PCP - General Nurse Practitioner 10/31/17
--- OUTSIDE RECORDS SUMMARY | 2025-05-12 15:39 | XMS_ITS | Clinical Summary ---
Author Organization [facility] [place] [address] Phone Care Team Providers Care Radio Director Name Role Phone Milton Schaefer NP Primary Care Provider [phone] Social History Tobacco Use Types Packs/Day Years [...] age to complete this topic Care Teams Radio Director Relationship Specialty Start Date End Date Milton Schaefer NP [address] [facility] [place] PCP - General Family Medicine 09/07/17
--- OUTSIDE RECORDS SUMMARY | 2025-05-12 15:39 | XMS_ITS | Clinical Summary ---
Author Organization [facility] Prior to 10/12/24 Address [address] [place] [address] Care Team Providers Care Letterpress Printing Machinist Name Role Phone Milton Schaefer Primary Care Provider [phone] Allergies No known active allergies Medications Medication [...] age to complete this topic Care Teams Letterpress Printing Machinist Relationship Specialty Start Date End Date Milton Schaefer [address] [place] [address] PCP - General Family Medicine 09/07/17
--- OUTSIDE RECORDS SUMMARY | 2025-05-12 15:39 | XMS_ITS | Encounter Summary ---
Author Organization [facility] Address [address] [facility] [address] [place] [address] Phone Care Team Providers Care Geriatric Personal Care Aide Name Role Phone Milton Schaefer KILN CLEANER Primary Care Provider + Milton Schaefer KILN CLEANER Primary Care Provider + Encounter Details Date Type Department Care Team (Late st Contact Info) Description 09/01/2017 Procedure Pass [facility] [address] [place] [address] Social History Tobacco Use Types Packs/Day Years [...] documented as of this encounter Care Teams Geriatric Personal Care Aide Relationship Specialty Start Date End Date Milton Schaefer NP [address] [facility] [place] [address] PCP - General Family Medicine 08/15/17 09/05/21 Milton Schaefer NP [address] [facility] [place] [address] PCP - General Family Medicine 09/06/21 documented as of this encounter Additional Source Comments The information contained in this document represents components of the legal health record. It is not the complete legal health record.[facility]
--- OUTSIDE RECORDS SUMMARY | 2025-05-12 15:39 | XMS_ITS | Encounter Summary ---
Author Organization [facility] Address [address] [place] [address] Care Team Providers Care Flue Lining Dipper Name Role Phone Milton Schaefer RENTAL REPRESENTATIVE Primary Care Provider + Encounter Details Date Type Department Care Team (Late st Contact Info) Description 05/31/[address] SCAN [facility] CT Scan [address] [facility] [address] [place] [address] Irma Miller MD Social History Tobacco Use [...] Industry Job Start Date Job End Date [employer] Not on file Not on file Not on file documented as of this encounter Plan of Treatment Not on file documented as of this encounter Visit Diagnoses Not on filedocumented in this encounter Care Teams Flue Lining Dipper Relationship Specialty Start Date End Date Milton Schaefer NP PCP - General Nurse Practitioner 10/31/17 documented as of this encounter
== END 2025-05-12 15:37 | disposition home or self-care (01) ==
LOC: HO.HMCC 13:32
PROVIDERS: PCP Nurse Practitioner Family; Visit Provider Nurse Practitioner Family
DX: R69 Illness, unspecified (principal); R39.89 Other symptoms and signs involving the genitourinary system; R74.8 Abnormal levels of other serum enzymes